=== PATIENT | male | born 1965 | race Caucasian/White ===

== ENCOUNTER → 2017-01-15 | Outpatient (CLI) | payer OTHER ==
[~2017-01-15] MED LIST: ADVI200C5 PO; AMLO5TAB2 PO; ATOR20TA15 PO; CINN500C PO; GLIM2TAB PO; HYDR25TA5 PO; INSU1INJ13 SQ; LISI-515 PO; METF1000 PO; MULT1TAB84 PO
[2017-01-15 09:58] LABS: ANION GAP 9 MEQ/L (5-15); BLOOD UREA NITROGEN 21 MG/DL (7-18); CHLORIDE 103 MEQ/L (98-107); GLOMERULAR FILTRATION RATE 85 ML/MIN (>89); GLUCOSE,FASTING 342 MG/DL (74-99); SODIUM (NA) 138 MEQ/L (136-145)
[2017-01-15 10:01] LABS: POTASSIUM 4.1 MEQ/L (3.5-5.1)
[2017-01-15 14:49] LABS: HEMOGLOBIN A1a 1.3 %; HEMOGLOBIN A1b 2.9 %; HEMOGLOBIN Ao 75.4 %; HEMOGLOBIN LA1C 3.9 %; HEMOGLOBIN P3 5.6 %
== END ==
LOC: CLAB 08:47
DX: E11.65 Type 2 diabetes mellitus with hyperglycemia (principal)
CPT/HCPCS: 36415; 80048; 83036

== ENCOUNTER → 2017-03-12 | Outpatient (CLI) | payer OTHER ==
[2017-03-12 11:00] LABS: ANION GAP 7 MEQ/L (5-15); BICARBONATE 27.6 MEQ/L (21.0-32.0); BLOOD UREA NITROGEN 20 MG/DL (7-18); CHLORIDE 103 MEQ/L (98-107); GLOMERULAR FILTRATION RATE 79 ML/MIN (>89); GLUCOSE,FASTING 349 MG/DL (74-99); POTASSIUM 4.2 MEQ/L (3.5-5.1); SODIUM (NA) 138 MEQ/L (136-145)
[2017-03-12 16:14] LABS: HEMOGLOBIN A1a 1.4 %; HEMOGLOBIN A1b 1.9 %; HEMOGLOBIN Ao 74.2 %; HEMOGLOBIN LA1C 3.9 %; HEMOGLOBIN P3 5.7 %
== END ==
LOC: CLAB 08:28
DX: E11.65 Type 2 diabetes mellitus with hyperglycemia (principal)
CPT/HCPCS: 36415; 80048; 83036

== ENCOUNTER → 2017-03-24 | Outpatient (CLI) | payer OTHER ==
[~2017-03-24] VITALS: Ht 175.3 cm; Wt 91.1 kg
[~2017-03-24] MED LIST changes: +CHLORHEXIDINE GLUCONATE 2 % 1 PACK (2 CLOTHS) TOPICAL PRN; +DEXTROSE 5% IN WATE 1000ML INJ 1,000 ML IV SCH; +INSULIN HUMAN REGULAR 1,000 UNITS/10 ML VIAL SQ PRN; +LACTATED RINGER'S 1000 ML IV PRN; +METOPROLOL TARTRATE 25 MG TAB PO PRN; +POVIDONE IODINE 5% (ANTISEPSIS KIT) 4 APPLICATIONS EACH NARE PRN; +PROPOFOL 200 MG/20 ML AMP IV ONE; +SODIUM CHLORID 0.9% 500 ML IV PRN; +[UNRECOGNIZED DRUG - CODE] PO; +[UNRECOGNIZED DRUG - CODE] PO
[2017-03-24 06:15] VITALS: BP 110/89; PULSE 75; RESP 16; TEMP 97.9; O2SAT 97
[2017-03-24 08:17] VITALS: TEMP 97.7
--- NOTE | 2017-03-24 08:19 | GIPROC ---
[facility] [address] [facility], [address] COLONOSCOPY PROCEDURE REPORT EXAM DATE: 03/24/2017 PATIENT NAME: Bony Chun MR #: [id number] BIRTHDATE: 1965 ENDOSCOPIST: Jaqueline Mahajan MD ORDER #: [id number] CHAIR CANER: Sarbjit Mooney and Nkechi Perez STATUS: outpatient INDICATIONS: The patient is a 51 yr old male here for a colonoscopy due to Screening PROCEDURE PERFORMED: Total Colonoscopy with polypectomy with biopsy forceps MEDICATIONS: See Anesthesia Record ESTIMATED BLOOD LOSS: None CONSENT: The patient understands the risks and benefits of the procedure and understands that these risks include, but are not limited to: sedation, allergic reaction, infection, perforation and/or bleeding. Alternative means of evaluation and treatment include, among others: physical exam, x-rays, and/or surgical intervention. The patient elects to proceed with this endoscopic procedure. DESCRIPTION OF PROCEDURE: checked for proper function. Hand hygiene and appropriate measures for infection prevention was taken. After the risks, benefits and alternatives of the procedure were thoroughly explained, Informed consent was verified, confirmed and timeout was successfully executed by the treatment team. A digital exam was performed. The endoscope was introduced through the anus and advanced to the cecum, which was identified by the appendiceal orifice, tri-radiate valve, and ileocecal valve. The prep quality was The instrument was then slowly withdrawn as the colon was fully examined. There were no mucosal abnormalities noted with the cecum, ascending colon, transverse colon, or descending colon. There was moderate diverticulosis in the sigmoid colon, as well as a 2-3 mm polyp which was removed with the biopsy forceps. There were no abnormalities in the rectum. The scope was then completely withdrawn from the patient and the procedure terminated. ADVERSE EVENTS: There were no complications. WITHDRAWL TIME: 8 minutes DEGREE OF DIFFICULTY: IMPRESSIONS: Normal Colon RECOMMENDATIONS: Colonoscopy in 5 years if polyp adenomatous, 10 years if hyperplastic PATIENT CONDITION: Stable DISPOSITION: Home RECALL: TBD Jaqueline Mahajan MD eSigned: Jaqueline Mahajan MD 03/24/2017 8:19 AM cc: Dr. Landeros PATIENT NAME: Bony Chun MR#: [id number]
[2017-03-24 08:37] VITALS: BP 145/90; PULSE 73; RESP 16; O2SAT 98
--- NOTE | 2017-03-24 08:50 | EKG ---
Date Performed: 03/24/2017 Time Performed: 06:45:28 PTAGE: 51 years EKG: Sinus rhythm WITH OCCASIONAL SUPRAVENTRICULAR PREMATURE COMPLEXES NONSPECIFIC T-WAVE ABNORMALITY ABNORMAL ECG NO PREVIOUS TRACING DOCTOR: Tay Mackenzie Interpretating Date/Time 03/24/2017 08:50:06
== END ==
LOC: HEND 06:06
PROVIDERS: ATTEND Colon & Rectal Surgery
DX: Z12.11 Encounter for screening for malignant neoplasm of colon (principal); R94.31 Abnormal electrocardiogram [ECG] [EKG]; D12.5 Benign neoplasm of sigmoid colon
CPT/HCPCS: 88305; 93005

== ENCOUNTER → 2017-05-14 | Outpatient (CLI) | payer OTHER ==
[~2017-05-14] MED LIST changes: -ATOR20TA15 PO; -CHLORHEXIDINE GLUCONATE 2 % 1 PACK (2 CLOTHS) TOPICAL PRN; -DEXTROSE 5% IN WATE 1000ML INJ 1,000 ML IV SCH; -INSULIN HUMAN REGULAR 1,000 UNITS/10 ML VIAL SQ PRN; -LACTATED RINGER'S 1000 ML IV PRN; -METOPROLOL TARTRATE 25 MG TAB PO PRN; -MULT1TAB84 PO; -POVIDONE IODINE 5% (ANTISEPSIS KIT) 4 APPLICATIONS EACH NARE PRN; -PROPOFOL 200 MG/20 ML AMP IV ONE; -SODIUM CHLORID 0.9% 500 ML IV PRN
[2017-05-14 13:18] LABS: ANION GAP 7 MEQ/L (5-15); AST (GOT) 15 U/L (15-37); BICARBONATE 26.9 MEQ/L (21.0-32.0); BLOOD UREA NITROGEN 33 MG/DL (7-18); CHLORIDE 107 MEQ/L (98-107); GLOMERULAR FILTRATION RATE 103 ML/MIN (>89); GLUCOSE,FASTING 112 MG/DL (74-99); POTASSIUM 3.8 MEQ/L (3.5-5.1); SODIUM (NA) 141 MEQ/L (136-145)
[2017-05-14 13:25] LABS: BLOOD, URINE NEG (NEG); CALCIUM OXALATE CRYSTALS,URINE OCC /hpf; COMMENT (UR) CULT NOT INDICATED; CULTURE IF INDICATED CULT NOT INDICATED; GLUCOSE,URINE 1000 mg/dL (NEG); KETONE, URINE NEG (NEG); NITRITE,URINE NEG (NEG); SQUAMOUS EPITHELIAL CELL URINE <1 /hpf (0-5); URINE COLOR YELLOW (YELLW/STRAW)
[2017-05-14 13:44] LABS: ALKALINE PHOSPHATASE 91 U/L (45-117); ALT (GPT) 28 U/L (12-78); LDL CHOLESTEROL 163 MG/DL (0-99); TOTAL BILIRUBIN ADULT 0.3 MG/DL (0.2-1.0)
[2017-05-14 16:00] LABS: HEMOGLOBIN A1a 0.9 %; HEMOGLOBIN A1b 2.3 %; HEMOGLOBIN LA1C 2.2 %; HEMOGLOBIN P3 4.3 %
== END ==
LOC: OLAB 08:13
PROVIDERS: ATTEND Family Medicine
DX: I10 Essential (primary) hypertension (principal); E78.5 Hyperlipidemia, unspecified; E55.9 Vitamin D deficiency, unspecified; E11.49 Type 2 diabetes mellitus with other diabetic neurological complication; E11.65 Type 2 diabetes mellitus with hyperglycemia
CPT/HCPCS: 80053; 80061; 81001; 82043; 82306; 82607; 82746; 83036; 84153; 84443

== ENCOUNTER 2017-09-20 12:03 | Inpatient (IN) | payer OTHER ==
[2017-09-20] VITALS (15 sets, daily range): BP systolic 118–212; BP diastolic 63–110; PULSE 76–108; RESP 16–18; TEMP 97.8–98.5; O2SAT 95–99
[~2017-09-20] VITALS: Ht 175.3 cm; Wt 92.2 kg
[2017-09-20] MEDS ORDERED: GADODIAMIDE PF 287 MG/ML 20 ML VIAL (for RAD MRI) IVCONTRAST ONE (12:04)
[2017-09-20] MEDS ORDERED: EMPA1TAB3 PO (12:22)
[2017-09-20] MEDS ORDERED: ATOR20TA15 PO (12:22)
[2017-09-20] MEDS ORDERED: MELO15TA20 PO (12:22)
[2017-09-20 13:03] LABS: AUTOMATED NEUTROPHIL # 4.6 TH/MM3 (1.8-7.7); BASOPHIL # 0.1 TH/MM3 (0-0.2); BASOPHIL % 0.7 % (0.0-2.0); EOSINOPHIL # 0.2 TH/MM3 (0-0.4); EOSINOPHIL % 2.4 % (0.0-4.0); HEMATOCRIT 46.5 % (39.0-51.0); HEMOGLOBIN 16.5 GM/DL (13.0-17.0); LYMPHOCYTE # 2.7 TH/MM3 (1.0-4.8); MEAN CELL VOLUME 88.9 FL (80.0-100.0); MEAN CORPUSCULAR HEMOGLOBIN 31.5 PG (27.0-34.0); MEAN CORPUSCULAR HGB CONC 35.4 % (32.0-36.0); MEAN PLATELET VOLUME 8.5 FL (7.0-11.0); MONO % 9.5 % (0.0-8.0); MONOCYTE # 0.8 TH/MM3 (0-0.9); NEUT % 55.4 % (16.0-70.0); PLATELET COUNT 256 TH/MM3 (150-450); RED BLOOD COUNT 5.23 MIL/MM3 (4.50-5.90); RED CELL DISTRIBUTION WIDTH 13.9 % (11.6-17.2); WHITE BLOOD COUNT 8.3 TH/MM3 (4.0-11.0)
--- NOTE | 2017-09-20 13:09 | PD ---
Physical Exam Date Seen by Provider: Sep 20, 2017 Time Seen by Provider: 13:08 Narrative The patient was initially evaluated by the mid-level provider. Please refer to the initial history, physical, diagnostic evaluation, and treatment modality plan. Data Data Last Documented VS Vital Signs Date Time Temp Pulse Resp B/P (MAP) Pulse Ox O2 Delivery O2 Flow Rate FiO2 09/20/17 15:10 78 17 168/94 (118) 99 Room Air 09/20/17 12:11 97.8 Orders Orders Electrocardiogram (09/20/17 12:24) Complete Blood Count With Diff (09/20/17 12:24) Comprehensive Metabolic Panel (09/20/17 12:24) Magnesium (Mg) (09/20/17 12:24) Iv Access Insert/Monitor (09/20/17 12:24) Ecg Monitoring (09/20/17 12:24) Labetalol Inj (Trandate Inj) (09/20/17 13:15) Mri C Spine W/O Contrast (09/20/17 ) Mri L Spine W/O Contrast (09/20/17 ) Mri Brain W&W/O Contrast (09/20/17 12:24) Ct Brain W/O Iv Contrast(Rout) (09/20/17 ) Gadodiamide Pf Inj (Omniscan Pf Inj) (09/20/17 12:04) Nicardipine Inj (Cardene Inj) (09/20/17 16:15) Amlodipine (Norvasc) (09/21/17 09:00) Atorvastatin (Lipitor) (09/21/17 09:00) Lisinopril (Prinivil) (09/20/17 21:00) Insulin Aspart Supplemtl Scale (Novolog (09/20/17 16:15) Consult Neurosurgery (09/20/17 ) Dextrose 50% In Jesus (Vial) Inj (D50w (Vi (09/20/17 16:15) Glucagon Inj (Glucagon Inj) (09/20/17 16:15) Admit Order (Ed Use Only) (09/20/17 16:11) Labs Laboratory Tests Test 09/20/17 12:30 White Blood Count 8.3 TH/MM3 Red Blood Count 5.23 MIL/MM3 Hemoglobin 16.5 GM/DL Hematocrit 46.5 % Mean Corpuscular Volume 88.9 FL Mean Corpuscular Hemoglobin 31.5 PG Mean Corpuscular Hemoglobin Concent 35.4 % Red Cell Distribution Width 13.9 % Platelet Count 256 TH/MM3 Mean Platelet Volume 8.5 FL Neutrophils (%) (Auto) 55.4 % Lymphocytes (%) (Auto) 32.0 % Monocytes (%) (Auto) 9.5 % Eosinophils (%) (Auto) 2.4 % Basophils (%) (Auto) 0.7 % Neutrophils # (Auto) 4.6 TH/MM3 Lymphocytes # (Auto) 2.7 TH/MM3 Monocytes # (Auto) 0.8 TH/MM3 Eosinophils # (Auto) 0.2 TH/MM3 Basophils # (Auto) 0.1 TH/MM3 CBC Comment DIFF FINAL Differential Comment Blood Urea Nitrogen 21 MG/DL Creatinine 0.84 MG/DL Random Glucose 145 MG/DL Total Protein 8.1 GM/DL Albumin 4.2 GM/DL Calcium Level 9.1 MG/DL Magnesium Level 2.2 MG/DL Alkaline Phosphatase 122 U/L Aspartate Amino Transf (AST/SGOT) 20 U/L Alanine Aminotransferase (ALT/SGPT) 31 U/L Total Bilirubin 0.5 MG/DL Sodium Level 140 MEQ/L Potassium Level 3.7 MEQ/L Chloride Level 108 MEQ/L Carbon Dioxide Level 24.3 MEQ/L Anion Gap 8 MEQ/L Estimat Glomerular Filtration Rate 96 ML/MIN [facility] Medical Record Reviewed: Yes Supervised Visit with TAMMIE: Yes Interpretation(s) Laboratory Tests Test 09/20/17 12:30 White Blood Count 8.3 TH/MM3 Red Blood Count 5.23 MIL/MM3 Hemoglobin 16.5 GM/DL Hematocrit 46.5 % Mean Corpuscular Volume 88.9 FL Mean Corpuscular Hemoglobin 31.5 PG Mean Corpuscular Hemoglobin Concent 35.4 % Red Cell Distribution Width 13.9 % Platelet Count 256 TH/MM3 Mean Platelet Volume 8.5 FL Neutrophils (%) (Auto) 55.4 % Lymphocytes (%) (Auto) 32.0 % Monocytes (%) (Auto) 9.5 % Eosinophils (%) (Auto) 2.4 % Basophils (%) (Auto) 0.7 % Neutrophils # (Auto) 4.6 TH/MM3 Lymphocytes # (Auto) 2.7 TH/MM3 Monocytes # (Auto) 0.8 TH/MM3 Eosinophils # (Auto) 0.2 TH/MM3 Basophils # (Auto) 0.1 TH/MM3 CBC Comment DIFF FINAL Differential Comment Blood Urea Nitrogen 21 MG/DL Creatinine 0.84 MG/DL Random Glucose 145 MG/DL Total Protein 8.1 GM/DL Albumin 4.2 GM/DL Calcium Level 9.1 MG/DL Magnesium Level 2.2 MG/DL Alkaline Phosphatase 122 U/L Aspartate Amino Transf (AST/SGOT) 20 U/L Alanine Aminotransferase (ALT/SGPT) 31 U/L Total Bilirubin 0.5 MG/DL Sodium Level 140 MEQ/L Potassium Level 3.7 MEQ/L Chloride Level 108 MEQ/L Carbon Dioxide Level 24.3 MEQ/L Anion Gap 8 MEQ/L Estimat Glomerular Filtration Rate 96 ML/MIN Differential Diagnosis Differential diagnosis includes neuropathy, polyneuropathy, syringomyelia, herniated disc, CVA, hypocalcemia, hypokalemia, somatization, malingering. Narrative Course I, Dr. Lindsay, have reviewed the advance practice practitioner's documentation and am in agreement, met with the patient face to face, made the diagnosis, and the medical decision making was done by me. *My assessment and Findings: The patient is a 51-year-old male was initially evaluated by the mid-level provider. Please refer to the initial history, physical, diagnostic evaluation, treatment modality plan. The patient states he has a history of neuropathy secondary to diabetes, was on Neurontin 300 mg twice a day, however, stopped taking because it was not helping his neuropathy and made him feel sedated. The patient has a long-standing history of numbness and tingling to the feet bilaterally. However, he was walking earlier today and felt like he "stiffened up ". The patient then felt like his lower extremities were heavy and also noted his upper extremities were heavy. Patient feels like his symptoms started more on the right side than the left side, however, states it is affecting both sides. The patient denies any urinary continence. He does complain of weakness of the right lower extremity, states he has difficulty ambulating secondary to his weakness. The patient initially had bilateral symptoms, however, white was greater than left. He did complain of heaviness to the right leg also noted he had difficulty writing with the right arm. Unsure if this is related to acute CVA, hemorrhage, or some type of neuropathy versus syringomyelia are transverse myelitis. Therefore , MRI was ordered of the brain, lumbar spine, and cervical spine. MRI of the brain does reveal possible hyperacute hemorrhage versus subacute infarct. Therefore, CT of the brain was obtained to evaluate for possible hemorrhage. CT is positive for intraparenchymal hemorrhage. I discussed the patient with the on-call neurosurgeon, Dr. Velarde, who recommends admission to the intensive surgical care unit in the on-call hardener helper. I discussed the patient with Dr. Prado who agrees with admission. The patient was placed in a Cardene drip for parameters of 140/90. I did discuss the findings with the patient and family at bedside. Critical Care Narrative Aggregate critical care time was 40 minutes. Time to perform other separately billable procedures was not included in the critical care time. My time did not include minutes spent treating any other patients simultaneously or on activities that did not directly contribute to the patient's treatment. The services I provided to this patient were to treat and/or prevent clinically significant deterioration that could result in: Anoxia, hypoxia, herniation, arrhythmia, . I provided critical care services requiring my management, as noted below: Chart data review, documentation time, medication orders and management, vital sign assessments/reviewing monitor data, ordering and reviewing lab tests, ordering and interpreting/reviewing x-rays and diagnostic studies, care of the patient and discussion of the patient with the admitting physicians. Physician Communication Physician Communication I discussed the patient with the on-call neurosurgeon and on-call hardener helper. The patient will be admitted to the intensive surgical care unit. Diagnosis Primary Impression: Intraparenchymal hemorrhage of brain Additional Impression: Hypertension Qualified Codes: I10 - Essential (primary) hypertension Admitting Information Admitting Physician Requests: Admit Condition: Stable Edilberto Lindsay MD Sep 20, 2017 13:09
[2017-09-20] MEDS ORDERED: LABETALOL HCL 100 MG/20 ML VIAL IV PUSH ONE (13:15)
[2017-09-20 13:16] LABS: ALBUMIN 4.2 GM/DL (3.4-5.0); ALT (GPT) 31 U/L (12-78); AST (GOT) 20 U/L (15-37); BICARBONATE 24.3 MEQ/L (21.0-32.0); BLOOD UREA NITROGEN 21 MG/DL (7-18); CALCIUM 9.1 MG/DL (8.5-10.1); CHLORIDE 108 MEQ/L (98-107); CREATININE 0.84 MG/DL (0.60-1.30); GLOMERULAR FILTRATION RATE 96 ML/MIN (>89); GLUCOSE,RANDOM 145 MG/DL (74-106); MAGNESIUM 2.2 MG/DL (1.5-2.5); SODIUM (NA) 140 MEQ/L (136-145)
--- NOTE | 2017-09-20 13:16 | PD ---
HPI Chief Complaint: Neuro Symptoms/ Deficits Time Seen by Provider: 12:09 Travel History International Travel<30 days: No Contact w/Intl Traveler<30days: No Traveled to known affect area: No History of Present Illness HPI 51 year old male patient presents to the emergency department for evaluation of bilateral feet numbness and tingling. Patient has history of diabetic neuropathy , but stopped taking his Gabapentin because he didn't like the way it make him feel. Patient states he never has sensation of his feet but feels like the numbness and tingling is worsening. Patient feels like his feet are heavy. Patient felt like his was going to slip on the floor when he got out of the shower this morning but caught himself and did not fall. Patient states since that event when he muscles tensed up he has had a difficult time walking. Patient states he feels like the right leg is heavier than the left leg at this time. Patient states he is having a difficult time writing words. Onset of symptoms was this morning. No incontinence of urine or stool. Patient denies any chest pain, shortness breath, fevers, chills, malaise, nausea, vomiting, diarrhea, abdominal pain, headache, lightheadedness. PFSH Past Medical History Asthma: Yes Cancer: No Cardiovascular Problems: No High Cholesterol: Yes Diabetes: Yes Patient Takes Glucophage: Yes Endocrine: Yes (diabetes, non insulin dependent) Genitourinary: No Hepatitis: No Hiatal Hernia: No Hypertension: Yes Immune Disorder: No Musculoskeletal: No Neurologic: Yes (foot neuropathy) Psychiatric: No Reproductive: No Respiratory: No Thyroid Disease: No Influenza Vaccination: No Past Surgical History Abdominal Surgery: Yes (hernia) AICD: No Cardiac Surgery: No Ear Surgery: No Endocrine Surgery: No Eye Surgery: No Genitourinary Surgery: No Gynecologic Surgery: No Joint Replacement: No Oral Surgery: Yes (wisdom teeth as a child) Pacemaker: No Thoracic Surgery: No Tonsillectomy: Yes Social History Alcohol Use: Yes (occas) Tobacco Use: No Substance Use: No Allergies-Medications (Allergen,Severity, Reaction): Coded Allergies: No Known Allergies (Unverified , 08/26/16) Reported Meds & Prescriptions Reported Meds & Active Scripts Active Reported Meloxicam 15 Mg Tab 15 Mg PO DAILY Atorvastatin (Atorvastatin Calcium) 20 Mg Tab 20 Mg PO DAILY Jardiance (Empagliflozin) 25 Mg Tab 25 Mg PO DAILY Ibuprofen 1 Pow Pow 1,000 Mg PO DAILY Amlodipine (Amlodipine Besylate) 5 Mg Tab 5 Mg PO DAILY Metformin (Metformin HCl) 1,000 Mg Tab 1,000 Mg PO BIDPC With meals Lisinopril 20 Mg Tab 20 Mg PO BID Tresiba Flextouch Pen Inj (Insulin Degludec Inj) 600 unit/3 ML Pen 20 Units SQ DAILY Glimepiride 2 Mg Tab 2 Mg PO BIDAC Review of Systems Except as stated in HPI: all other systems reviewed are Neg Physical Exam Narrative GENERAL: Well-nourished, well-developed 51-year-old male patient in no acute distress. SKIN: Bilateral lower extremities has loss of hair, shining to the skin with a bronzing color noted. HEAD: Atraumatic. Normocephalic. EYES: Pupils equal and round. No scleral icterus. No injection or drainage. ENT: No nasal bleeding or discharge. Mucous membranes pink and moist. NECK: Trachea midline. No JVD. CARDIOVASCULAR: Regular rate and rhythm. No murmur appreciated. Pedal pulses + 2 bilaterally. RESPIRATORY: No accessory muscle use. Clear to auscultation. Breath sounds equal bilaterally. GASTROINTESTINAL: Abdomen soft, non-tender, nondistended. Hepatic and splenic margins not palpable. MUSCULOSKELETAL: Full range of motion with dorsi and pedal flexion in bilateral lower extremities. No obvious deformities. No clubbing. No cyanosis. No edema. Muscle strength in the right lower extremities 4 out of 5, muscle strength in the left lower extremity 5 out of 5. NEUROLOGICAL: Awake and alert. No obvious cranial nerve deficits. Motor grossly within normal limits. Normal speech. PSYCHIATRIC: Appropriate mood and affect; insight and judgment normal. Data Data Last Documented VS Vital Signs Date Time Temp Pulse Resp B/P (MAP) Pulse Ox O2 Delivery O2 Flow Rate FiO2 09/20/17 16:00 78 18 192/107 (135) 96 Room Air 09/20/17 12:11 97.8 Orders Orders Electrocardiogram (09/20/17 12:24) Complete Blood Count With Diff (09/20/17 12:24) Comprehensive Metabolic Panel (09/20/17 12:24) Magnesium (Mg) (09/20/17 12:24) Iv Access Insert/Monitor (09/20/17 12:24) Ecg Monitoring (09/20/17 12:24) Labetalol Inj (Trandate Inj) (09/20/17 13:15) Mri C Spine W/O Contrast (09/20/17 ) Mri L Spine W/O Contrast (09/20/17 ) Mri Brain W&W/O Contrast (09/20/17 12:24) Ct Brain W/O Iv Contrast(Rout) (09/20/17 ) Gadodiamide Pf Inj (Omniscan Pf Inj) (09/20/17 12:04) Nicardipine Inj (Cardene Inj) (09/20/17 16:15) Amlodipine (Norvasc) (09/21/17 09:00) Atorvastatin (Lipitor) (09/21/17 09:00) Lisinopril (Prinivil) (09/20/17 21:00) Insulin Aspart Supplemtl Scale (Novolog (09/20/17 16:15) Consult Neurosurgery (09/20/17 ) Dextrose 50% In Jesus (Vial) Inj (D50w (Vi (09/20/17 16:15) Glucagon Inj (Glucagon Inj) (09/20/17 16:15) Admit Order (Ed Use Only) (09/20/17 16:11) Phosphorus (Po4) (09/20/17 12:30) Labs Laboratory Tests Test 09/20/17 12:30 White Blood Count 8.3 TH/MM3 Red Blood Count 5.23 MIL/MM3 Hemoglobin 16.5 GM/DL Hematocrit 46.5 % Mean Corpuscular Volume 88.9 FL Mean Corpuscular Hemoglobin 31.5 PG Mean Corpuscular Hemoglobin Concent 35.4 % Red Cell Distribution Width 13.9 % Platelet Count 256 TH/MM3 Mean Platelet Volume 8.5 FL Neutrophils (%) (Auto) 55.4 % Lymphocytes (%) (Auto) 32.0 % Monocytes (%) (Auto) 9.5 % Eosinophils (%) (Auto) 2.4 % Basophils (%) (Auto) 0.7 % Neutrophils # (Auto) 4.6 TH/MM3 Lymphocytes # (Auto) 2.7 TH/MM3 Monocytes # (Auto) 0.8 TH/MM3 Eosinophils # (Auto) 0.2 TH/MM3 Basophils # (Auto) 0.1 TH/MM3 CBC Comment DIFF FINAL Differential Comment Blood Urea Nitrogen 21 MG/DL Creatinine 0.84 MG/DL Random Glucose 145 MG/DL Total Protein 8.1 GM/DL Albumin 4.2 GM/DL Calcium Level 9.1 MG/DL Phosphorus Level 2.5 MG/DL Magnesium Level 2.2 MG/DL Alkaline Phosphatase 122 U/L Aspartate Amino Transf (AST/SGOT) 20 U/L Alanine Aminotransferase (ALT/SGPT) 31 U/L Total Bilirubin 0.5 MG/DL Sodium Level 140 MEQ/L Potassium Level 3.7 MEQ/L Chloride Level 108 MEQ/L Carbon Dioxide Level 24.3 MEQ/L Anion Gap 8 MEQ/L Estimat Glomerular Filtration Rate 96 ML/MIN MDM Medical Decision Making Medical Screen Exam Complete: Yes Emergency Medical Condition: Yes Interpretation(s) Hypertensive Differential Diagnosis Differential diagnosis include but not limited to nerve impingement, CVA, electrolyte abnormality Narrative Course Patient was placed on monitor and IV obtained. Blood work sent. CBC, CMP, magnesium ordered and pending. Patient case discussed with my attending, Dr. Lindsay and due to the abnormal presentation of the patient MRI was ordered to rule out CVA. MRI of the C-spine and lumbar spine was also ordered to evaluate for nerve impingement or compression. MRI shows 1.8cm signal abnormality in the left thalamus. CT was ordered to evaluate for potential hemorrhagic stroke. CT shows acute hemorrhage within the left posterior thalamus and probable prominent dura posteriorly at the left of the posterior falx which appears slightly dense. Patient was admitted to the metal fabricating supervisor with consult for neurosurgery. Dr. Lindsay with metal fabricating supervisor and neurosurgeon. Please see his documentation for further details. Diagnosis Primary Impression: Intraparenchymal hemorrhage of brain Additional Impression: Hypertension Qualified Codes: I10 - Essential (primary) hypertension Admitting Information Admitting Physician Requests: Admit Condition: Stable Amira Reyes FLACA Sep 20, 2017 13:16
[2017-09-20 13:19] LABS: ALKALINE PHOSPHATASE 122 U/L (45-117); TOTAL BILIRUBIN ADULT 0.5 MG/DL (0.2-1.0); TOTAL PROTEIN 8.1 GM/DL (6.4-8.2)
--- NOTE | 2017-09-20 14:42 | RADRPT ---
EXAM DATE/TIME: 09/20/2017 13:44 [facility] COMPARISON: No previous studies available for comparison. INDICATIONS : Right side weakness. MEDICAL HISTORY : Diabetes mellitus type 2. Hypertension. SURGICAL HISTORY : Tonsillectomy. Inguinal hernia repair. ENCOUNTER: Initial ACUITY: 1 day PAIN SCORE: 0/10 LOCATION: Paraspinal TECHNIQUE: Multiplanar, multisequence MRI examination of the cervical spine was performed. FINDINGS: VERTEBRAE: Normal vertebral body height. Homogeneous marrow signal. ALIGNMENT: No evidence of subluxation. CORD: Normal configuration and signal. POST FOSSA: The cerebellar tonsils are normal in position. C2-C3: The thecal sac has a normal configuration. There is no evidence of disc herniation or spinal canal s tenosis. The neural foramina are patent bilaterally. C3-C4: There is mild central disc protrusion. There continues to be CSF around the cord. The neural foramin a are patent bilaterally. C4-C5: There is a minimal central disc protrusion. Significant stenosis is not seen. There continues to be C SF around the cord. The neural foramina are patent bilaterally. C5-C6: The disc demonstrates decreased height. There is minimal asymmetric posterior osteophyte/disc bulge f ormation being worse on the right. Significant narrowing of the thecal sac is not seen. There is unco vertebral hypertrophy on the right. There is narrowing of the right neural foramina. The left neural foramina is patent. eural foramina are patent bilaterally. C6-C7: The thecal sac has a normal configuration. There is no evidence of disc herniation or spinal canal s tenosis. The neural foramina are patent bilaterally. C7-T1: The thecal sac has a normal configuration. There is no evidence of disc herniation or spinal canal s tenosis. The neural foramina are patent bilaterally. CONCLUSION: 1. Mild asymmetric disc bulge and osteophyte formation being worse on the right at the C5-C6 level. T here is right uncovertebral hypertrophy at this level with narrowing of the right neural foramina. 2. Mild central disc protrusion at the C3-C4 level. 3. Minimal central disc protrusion at the C4-C5 level. Johan Hernandez MD on September 20, 2017 at 14:35 Board Certified Radiologist. This report was verified electronically.
--- NOTE | 2017-09-20 14:50 | RADRPT ---
EXAM DATE/TIME: 09/20/2017 13:44 [facility] COMPARISON: No previous studies available for comparison. INDICATIONS : Right sided weakness. CONTRAST: 18 cc Omniscan (gadodiamide) IV MEDICAL HISTORY : Hypertension. Diabetes mellitus type 2. SURGICAL HISTORY : Tonsillectomy. Inguinal hernia repair. ENCOUNTER: Initial ACUITY: 1 day PAIN SCORE: 0/10 LOCATION: cranial TECHNIQUE: Multiplanar, multisequence MRI of the brain was performed both prior to and following the administrat ion of paramagnetic contrast. FINDINGS: CEREBRUM: There is a 1.7 x 1.6 x 1.8 cm focal areas signal abnormality at the left thalamus. This demonstrates increased signal on the T2-weighted images, low signal on T1-weighted images and low signal on the SW I images. It does demonstrate some increased signal on the diffusion weighted images. The increased s ignal is more prominent on the flair images than the diffusion weighted images. The ventricles are no rmal for age. No evidence of midline shift. No extraaxial fluid collections are seen. The pituitar y gland and suprasellar cistern are normal in configuration. WHITE MATTER: No significant signal abnormalities are seen in the white matter. POSTERIOR FOSSA: The cerebellum and brainstem are intact. The 4th ventricle is midline. The cerebellopontine angle is unremarkable. The cerebellar tonsils are normal in position. DIFFUSION IMAGING: Again noted is the area of abnormal signal at the left thalamus. EXTRACRANIAL: The visualized portions of the orbits and paranasal sinuses are unremarkable. POST-CONTRAST: No abnormal areas of parenchymal or dural enhancement. No evidence of blood-brain barrier breakdown. CONCLUSION: 1.8 cm area of signal abnormality in left thalamus. The signal characteristics suggest a hyperacute f ocal hemorrhage or a subacute area of infarction. Johan Hernandez MD on September 20, 2017 at 14:43 Board Certified Radiologist. This report was verified electronically.
--- NOTE | 2017-09-20 15:15 | RADRPT ---
EXAM DATE/TIME: 09/20/2017 13:44 [facility] COMPARISON: No previous studies available for comparison. INDICATIONS : Right side weakness. MEDICAL HISTORY : Hypertension. Diabetes mellitus type 2. SURGICAL HISTORY : Tonsillectomy. Inguinal hernia repair. ENCOUNTER: Initial ACUITY: 1 day PAIN SCORE: 0/10 LOCATION: Paraspinal TECHNIQUE: Multiplanar multisequence MRI of the lumbar spine was performed without contrast. FINDINGS: The marrow signal appears intact. No significant compression deformities, spondylolisis, or spondylo lesthesis is seen. L1-L2: No appreciable compromise to the thecal sac, or the exiting nerve roots is seen. The neural foramina and lateral recesses are patent bilaterally. L2-L3: No appreciable compromise to the thecal sac, or the exiting nerve roots is seen. The neural foramina and lateral recesses are patent bilaterally. L3-L4: No appreciable compromise to the thecal sac, or the exiting nerve roots is seen. The neural foramina and lateral recesses are patent bilaterally. L4-L5: Mild central disc protrusion is present without any significant compromise to the thecal sac or the exiting nerve roots. There is symmetrical bulging disc with extension into the bilateral neur al foramen impinging the exiting nerve roots to a slight degree.No appreciable thecal sac stenosis is seen. L5-S1: No appreciable compromise to the thecal sac, or the exiting nerve roots is seen. The neural foramina and lateral recesses are patent bilaterally. CONCLUSION: Slightly disc bulge and protrusion L4-5 without any significant thecal sac stenosis. Jose Alejandro Ochoa MD on September 20, 2017 at 15:08 Board Certified Radiologist. This report was verified electronically.
--- NOTE | 2017-09-20 15:52 | RADRPT ---
EXAM DATE/TIME: 09/20/2017 15:41 [place] COMPARISON: MRI BRAIN W & W/O CONTRAST, September 20, 2017, 13:44. INDICATIONS : Bilateral lower extremity weakness, worse on right. Difficulty walking. RADIATION DOSE: 40.06 CTDIvol (mGy) MEDICAL HISTORY : Hypertension. Diabetes mellitus type 2. SURGICAL HISTORY : None. ENCOUNTER: Initial ACUITY: 1 day PAIN SCALE: 0/10 LOCATION: cranial TECHNIQUE: Multiple contiguous axial images were obtained of the head. Using automated exposure control and adj ustment of the mA and/or kV according to patient size, radiation dose was kept as low as reasonably a chievable to obtain optimal diagnostic quality images. DICOM format image data is available electro nically for review and comparison. FINDINGS: Approximate 1.4 cm acute hemorrhage is present in the left posterior thalamus. There is slight i ncreased density involving the posterior falx at the level of the supracerebellar cistern image is th ickening of the falx since no hemorrhage was identified on the patient's MRI. No extra-axial fluid co llections or mass effect is identified. CONCLUSION: Acute hemorrhage within the left posterior thalamus and probable prominent dura posteriorly at the le pauline of the posterior falx which appears slightly dense. Jose Alejandro Ochoa MD on September 20, 2017 at 15:46 Board Certified Radiologist. This report was verified electronically.
[2017-09-20] MEDS ORDERED: RESP: ALBUTEROL 2.5 MG/IPRATROPIUM 0.5 MG NEB (PRN) INH (16:15)
[2017-09-20] MEDS ORDERED: MAGNESIUM SULFATE INJ 4 GM in SODIUM CHLORIDE 0.9% INJ 92 ML IV PRN (16:15)
[2017-09-20] MEDS ORDERED: DEXTROSE 50% IN WATER 50 ML VIAL(D50) IV PUSH PRN (16:15)
[2017-09-20] MEDS ORDERED: LACTULOSE SYRUP 20 GM/30 ML CUP PO PRN (16:15)
[2017-09-20] MEDS ORDERED: BISACODYL 10 MG SUPP RECTAL PRN (16:15)
[2017-09-20] MEDS ORDERED: MAGNESIUM HYDROXIDE SUSP 30 ML CUP PO PRN (16:15)
[2017-09-20] MEDS ORDERED: POTASSIUM PHOSPHATE MONOBASIC 500 MG TAB PO PRN (16:15)
[2017-09-20] MEDS ORDERED: POTASSIUM PHOSPHATE MONOBASIC 500 MG TAB PO/TUBE PRN (16:15)
[2017-09-20] MEDS ORDERED: MAGNESIUM SULFATE INJ 2 GM in SODIUM CHLORIDE 0.9% INJ 96 ML IV PRN (16:15)
[2017-09-20] MEDS ORDERED: niCARdipine INJ 25 MG in SODIUM CHLOR 0.9% 250 ML INJ 240 ML IV ONE (16:15)
[2017-09-20] MEDS ORDERED: SODIUM PHOSPHATE INJ 30 MMOL in SODIUM CHLOR 0.9% 250 ML INJ 240 ML IV PRN (16:15)
[2017-09-20] MEDS ORDERED: MISCELLANEOUS NURSING INFORMATION XX SCH (16:15)
[2017-09-20] MEDS ORDERED: POTASSIUM CHLORIDE 25 MEQ EFFERVESCENT TAB PO PRN (16:15)
[2017-09-20] MEDS ORDERED: MAGNESIUM OXIDE 400 MG TAB PO PRN (16:15)
[2017-09-20] MEDS ORDERED: POTASSIUM CHLOR 40 MEQ PREMIX 100 ML IV PRN ×2 (16:15)
[2017-09-20] MEDS ORDERED: SENNOSIDES 8.6 MG TAB PO PRN (16:15)
[2017-09-20] MEDS: INSULIN ASPART SUPPLEMENTAL SCALE SQ SCH ×3 (16:15→23:55)
[2017-09-20] MEDS ORDERED: POTASSIUM CHLOR 20 MEQ PREMIX 100 ML IV PRN ×2 (16:15)
[2017-09-20] MEDS ORDERED: GLUCAGON 1 MG/ML VIAL OTHER PRN (16:15)
[2017-09-20] MEDS ORDERED: POTASSIUM PHOSPHATE INJ 30 MMOL in SODIUM CHLOR 0.9% 250 ML INJ 250 ML IV PRN (16:15)
[2017-09-20] MEDS ORDERED: CHLORHEXIDINE GLUCONATE 2 % 1 PACK (2 CLOTHS) TOP PRN (16:15)
--- NOTE | 2017-09-20 16:18 | HHI.HP ---
[facility] Service Critical Care Medicine Primary Care Physician Pamela Landeros M.D. Admission Diagnosis intraparenchymal hemorrhage Diagnosis: (1) Acute left thalamic hemorrhage Diagnosis: Principal (2) Hypertensive emergency Diagnosis: Principal (3) Type 2 diabetes mellitus Diagnosis: Secondary (4) Dyslipidemia Diagnosis: Secondary (5) Hypertension Diagnosis: Secondary Chief Complaint: Acute left thalamic hemorrhage Travel History International Travel<30 Days: No Contact w/Intl Traveler <30 Da: No Traveled to Known Affected Are: No History of Present Illness Patient is a 51-year-old male with past medical history significant for type 2 diabetes, hypertension, dyslipidemia, diabetic neuropathy who presented initially to the emergency department for bilateral feet numbness and tingling. He also reported taking a shower patient felt his feet are heavy. He thought he was going to fall, but did not fall. He was weaker on the right side and also had difficulty walking. In the ER initially MRI of the brain and C-spine were done because of bilateral symptoms. MRI was suggestive of a left thalamic hemorrhage which was confirmed on the CT of the brain. Critical care medicine was requested to admit this patient. Neurosurgery Dr. Velarde also had been consulted. I evaluated patient in ED. initial blood pressure on arrival was 210/102. Patient had been started on Cardene infusion at 5 mg per hour, increased to 10 mg per hour as the SBP remained 170-180. Patient has grossly equal strength on both sides but still has mild right facial droop. Neurosurgery consult is pending at this time Review of Systems ROS Limitations: Other (as per [facility]) Past Family Social History Allergies: Coded Allergies: No Known Allergies (Unverified , 08/26/16) Past Medical History Type 2 diabetes Hypertension Dyslipidemia Diabetic neuropathy Past Surgical History Inguinal hernia repair Reported Medications Meloxicam 15 Mg Tab 15 Mg PO DAILY Atorvastatin (Atorvastatin Calcium) 20 Mg Tab 20 Mg PO DAILY Jardiance (Empagliflozin) 25 Mg Tab 25 Mg PO DAILY Ibuprofen 1 Pow Pow 1,000 Mg PO DAILY Amlodipine (Amlodipine Besylate) 5 Mg Tab 5 Mg PO DAILY Metformin (Metformin HCl) 1,000 Mg Tab 1,000 Mg PO BIDPC Lisinopril 20 Mg Tab 20 Mg PO BID Tresiba Flextouch Pen Inj (Insulin Degludec Inj) 600 unit/3 ML Pen 20 Units SQ DAILY Glimepiride 2 Mg Tab 2 Mg PO BIDAC Active Ordered Medications Normal saline gtt. Getting started on Cardene infusion Family History Father had lung cancer and coronary artery disease Mother had pleural malignancy Social History No smoking, occasional alcohol Physical Exam Vital Signs Vital Signs Date Time Temp Pulse Resp B/P (MAP) Pulse Ox O2 Delivery O2 Flow Rate FiO2 09/20/17 15:10 78 17 168/94 (118) 99 Room Air 09/20/17 13:00 79 17 153/87 (109) 99 Room Air 09/20/17 12:29 85 17 194/108 (136) 99 Room Air 09/20/17 12:11 97.8 85 18 212/110 (144) 99 09/20/17 12:08 98.5 82 18 210/102 (138) 99 Room Air Physical Exam GENERAL: Well-nourished, well-developed 51-year-old male patient lying in [facility] SKIN: Bilateral lower extremities has loss of hair with shiny skin, slightly atrophied muscles HEAD: Normocephalic. EYES: Pupils equal and round. No scleral icterus. No injection or drainage. ENT: No nasal bleeding or discharge. Mild right facial droop NECK: Trachea midline. No JVD. CARDIOVASCULAR: Regular rate and rhythm. No murmur appreciated. RESPIRATORY: No accessory muscle use. Clear to auscultation. Breath sounds equal bilaterally. GASTROINTESTINAL: Abdomen soft, non-tender, nondistended. Hepatic and splenic margins not palpable. NEUROLOGICAL: Awake and alert. Oriented 3. Mild right facial droop no other obvious cranial nerve deficits. Motor grossly within normal limits. Normal speech. Laboratory Laboratory Tests Test 09/20/17 12:30 White Blood Count 8.3 Red Blood Count 5.23 Hemoglobin 16.5 Hematocrit 46.5 Mean Corpuscular Volume 88.9 Mean Corpuscular Hemoglobin 31.5 Mean Corpuscular Hemoglobin Concent 35.4 Red Cell Distribution Width 13.9 Platelet Count 256 Mean Platelet Volume 8.5 Neutrophils (%) (Auto) 55.4 Lymphocytes (%) (Auto) 32.0 Monocytes (%) (Auto) 9.5 Eosinophils (%) (Auto) 2.4 Basophils (%) (Auto) 0.7 Neutrophils # (Auto) 4.6 Lymphocytes # (Auto) 2.7 Monocytes # (Auto) 0.8 Eosinophils # (Auto) 0.2 Basophils # (Auto) 0.1 CBC Comment DIFF FINAL Differential Comment Blood Urea Nitrogen 21 Creatinine 0.84 Random Glucose 145 Total Protein 8.1 Albumin 4.2 Calcium Level 9.1 Magnesium Level 2.2 Alkaline Phosphatase 122 Aspartate Amino Transf (AST/SGOT) 20 Alanine Aminotransferase (ALT/SGPT) 31 Total Bilirubin 0.5 Sodium Level 140 Potassium Level 3.7 Chloride Level 108 Carbon Dioxide Level 24.3 Anion Gap 8 Estimat Glomerular Filtration Rate 96 Result Diagram: 09/20/17 1230 09/20/[address] of the brain shows a left thalamic hemorrhage Caprini VTE Risk Assessment Caprini VTE Risk Assessment: Mod/High Risk (score >= 2) VTE Pharm Contraindication: Hemorrhage Caprini Risk Assessment Model Point Value = 1 Point Value = 2 Point Value = 3 Point Value = 5 Age 41-60 Minor surgery BMI > 25 kg/m2 Swollen legs Varicose veins or History of unexplained or recurrent spontaneous Oral contraceptives or hormone replacement Sepsis (< 1 month) Serious lung disease, including pneumonia (< 1 month) Abnormal pulmonary function Acute myocardial infarction Congestive heart failure (< 1 month) History of inflammatory bowel disease Medical patient at bed rest Age 61-74 Arthroscopic surgery Major open surgery (> 45 min) Laparoscopic surgery (> 45 min) Malignancy Confined to bed (> 72 hours) Immobilizing plaster cast Central venous access Age >= 75 History of VTE Family history of VTE Factor V Leiden Prothrombin [id number] Lupus anticoagulant Anticardiolipin antibodies Elevated serum homocysteine Heparin-induced thrombocytopenia Other congenital or acquired thrombophilia Stroke (< 1 month) Elective arthroplasty Hip, pelvis, or leg fracture Acute spinal cord injury (< 1 month) Prophylaxis Regimen Total Risk Factor Score Risk Level Prophylaxis Regimen 0-1 Low Early ambulation 2 Moderate Order ONE of the following: *Sequential Compression Device (SCD) *Heparin 5000 units SQ BID 3-4 Higher Order ONE of the following medications: *Heparin 5000 units SQ TID *Enoxaparin/Lovenox 40 mg SQ daily (WT < 150 kg, CrCl > 30 mL/min) *Enoxaparin/Lovenox 30 mg SQ daily (WT < 150 kg, CrCl > 10-29 mL/min) *Enoxaparin/Lovenox 30 mg SQ BID (WT < 150 kg, CrCl > 30 mL/min) AND/OR *Sequential Compression Device (SCD) 5 or more Highest Order ONE of the following medications: *Heparin 5000 units SQ TID (Preferred with Epidurals) *Enoxaparin/Lovenox 40 mg SQ daily (WT < 150 kg, CrCl > 30 mL/min) *Enoxaparin/Lovenox 30 mg SQ daily (WT < 150 kg, CrCl > 10-29 mL/min) *Enoxaparin/Lovenox 30 mg SQ BID (WT < 150 kg, CrCl > 30 mL/min) AND *Sequential Compression Device (SCD) Assessment and Plan Assessment and Plan NEURO: Acute left thalamic hemorrhage - Patient appeared to have sustained a hypertensive bleed - Neurosurgery consult with Dr. Velarde - Target systolic blood pressure less than 140 diastolic less than 90 - No indication for seizure prophylaxis, keep sodium > 140 RESP: - Nasal cannula oxygen - DuoNeb every 6 hours when necessary CV: Hypertensive emergency History of hypertension - Cardene infusion to keep blood pressure less than 140/90 - Use hydralazine when necessary, continue home lisinopril - Continue statin - Normal saline IV fluids gtt GI: - Heart healthy diet - Speech and swallow eval - Famotidine for GI prophylaxis : - Monitor renal function closely. No indication for Pulido ID: - Monitor closely for infection HEME: - Monitor CBC, CMP, coags ENDO: Type 2 diabetes - Hold all home diabetic drugs - Novolog SSI PROPH: - Bilateral lower extremity SCDs/TRA, famotidine for GI prophylaxis. Chemical DVT prophylaxis contraindicated LINES: - Utilize peripheral IVs, central line if needed CC time 35 min Remains critically ill at this time with hypertensive thalamic bleed. Follow- up CT scan in 24 hours. Neurosurgery consult is pending Code Status Full Discussed Condition With Dr. Lindsay, patient and family Problem Qualifiers (1) Type 2 diabetes mellitus: (2) Hypertension: Qualified Codes: I10 - Essential (primary) hypertension Mimi Prado MD Sep 20, 2017 16:18
[2017-09-20] MEDS ORDERED: MORPHINE SULFATE 2 MG/ML INJ IV PRN (16:30)
[2017-09-20] MEDS ORDERED: hydrALAZINE HCL 20 MG/ML VIAL IV PUSH PRN (16:30)
[2017-09-20] MEDS: SODIUM CHLOR 0.9% 1000 ML INJ 1,000 ML IV SCH (16:33)
[2017-09-20 16:44] LABS: PHOSPHORUS 2.5 MG/DL (2.5-4.9)
[2017-09-20] MEDS: DOCUSATE SODIUM 50 MG/SENNA 8.6 MG TAB PO SCH (19:38)
[2017-09-20] MEDS ORDERED: ACETAMINOPHEN 325 MG TAB PO PRN (20:15)
[2017-09-20] MEDS ORDERED: ACETAMINOPHEN/HYDROcodone 325 MG/5 MG TAB PO PRN (20:15)
[2017-09-20] MEDS: FAMOTIDINE 20 MG/2 ML VIAL IV PUSH SCH (20:37)
[2017-09-20] MEDS: LISINOPRIL 20 MG TAB PO SCH (20:37)
[2017-09-20] MEDS: niCARdipine INJ 25 MG in SODIUM CHLOR 0.9% 250 ML INJ 240 ML IV PRN ×2 (21:01→22:42)
--- NOTE | 2017-09-20 21:52 | PD.CONS ---
[facility] Service Neurosurg Consult Requested By Dr Pulido Reason for Consult [facility] Primary Care Physician Pamela Landeros M.D. History of Present Illness This is a 51-year-old male with history of type 2 diabetes, hypertension, dyslipidemia, diabetic neuropathy who presented initially to the emergency department with new onset feet numbness and tingling. While taking a shower patient felt his feet became very heavy. He thought he was going to fall, but did not fall. He was weaker on the right upper and lower extremity and also had difficulty walking. No seizure acivity. No tongue bitting. no incontinence of stool or urine. In the ER MRI of the brain and C-spine were done because of bilateral symptoms. MRI was suggestive of a left thalamic hemorrhage which was confirmed on the CT of the brain. Critical care medicine was requested to admit this patient. Neurosurgery consultation was requested. Review of Systems Constitutional: DENIES: Diaphoretic episodes, Fatigue, Fever, Weight gain, Weight loss, Chills, Dizziness, Change in appetite, Night Sweats Endocrine: DENIES: Heat/cold intolerance, Polydipsia, Polyuria, Polyphagia Eyes: DENIES: Blurred vision, Diplopia, Eye inflammation, Eye pain, Vision loss , Photosensitivity, Double Vision Ears, nose, mouth, throat: DENIES: Tinnitus, Hearing loss, Vertigo, Nasal discharge, Oral lesions, Throat pain, Hoarseness, Ear Pain, Running Nose, Epistaxis, Sinus Pain, Toothache, Odynophagia Respiratory: DENIES: Apneas, Cough, Snoring, Wheezing, Hemoptysis, Sputum production, Shortness of breath Cardiovascular: DENIES: Chest pain, Palpitations, Syncope, Dyspnea on Exertion , PND, Lower Extremity Edema, Orthopnea, Claudication Gastrointestinal: DENIES: Abdominal pain, Black stools, Bloody stools, Constipation, Diarrhea, Nausea, Vomiting, Difficulty Swallowing, Anorexia Genitourinary: DENIES: Sexual dysfunction, Urinary frequency, Urinary incontinence, Urgency, Hematuria, Dysuria, Nocturia, Penile Discharge, Testicular Pain, Testicular Swelling Musculoskeletal: DENIES: Joint pain, Muscle aches, Stiffness, Joint Swelling, Back pain, Neck pain Integumentary: DENIES: Abnormal pigmentation, Nail changes, Pruritus, Rash Hematologic/lymphatic: DENIES: Bruising, Lymphadenopathy Immunologic/allergic: DENIES: Eczema, Urticaria Neurologic: COMPLAINS OF: Headache, DENIES: Abnormal gait, Localized weakness, Paresthesias, Seizures, Speech Problems, Tremor, Poor Balance Psychiatric: COMPLAINS OF: Anxiety, DENIES: Confusion, Mood changes, Depression , Hallucinations, Agitation, Suicidal Ideation, Homicidal Ideation, Delusions Past Family Social History Allergies: Coded Allergies: No Known Allergies (Unverified , 08/26/16) Past Medical History Type 2 diabetes Hypertension Dyslipidemia Diabetic neuropathy Past Surgical History Inguinal hernia repair Reported Medications Meloxicam 15 Mg Tab 15 Mg PO DAILY Atorvastatin (Atorvastatin Calcium) 20 Mg Tab 20 Mg PO DAILY Jardiance (Empagliflozin) 25 Mg Tab 25 Mg PO DAILY Ibuprofen 1 Pow Pow 1,000 Mg PO DAILY Amlodipine (Amlodipine Besylate) 5 Mg Tab 5 Mg PO DAILY Metformin (Metformin HCl) 1,000 Mg Tab 1,000 Mg PO BIDPC Lisinopril 20 Mg Tab 20 Mg PO BID Tresiba Flextouch Pen Inj (Insulin Degludec Inj) 600 unit/3 ML Pen 20 Units SQ DAILY Glimepiride 2 Mg Tab 2 Mg PO BIDAC Active Ordered Medications Normal saline gtt. Getting started on Cardene infusion Family History Father had lung cancer and coronary artery disease Mother had pleural malignancy Social History No smoking, occasional alcohol Meloxicam 15 Mg Tab 15 Mg PO DAILY Atorvastatin (Atorvastatin Calcium) 20 Mg Tab 20 Mg PO DAILY Jardiance (Empagliflozin) 25 Mg Tab 25 Mg PO DAILY Ibuprofen 1 Pow Pow 1,000 Mg PO DAILY Amlodipine (Amlodipine Besylate) 5 Mg Tab 5 Mg PO DAILY Metformin (Metformin HCl) 1,000 Mg Tab 1,000 Mg PO BIDPC Lisinopril 20 Mg Tab 20 Mg PO BID Tresiba Flextouch Pen Inj (Insulin Degludec Inj) 600 unit/3 ML Pen 20 Units SQ DAILY Glimepiride 2 Mg Tab 2 Mg PO BIDAC Active Ordered Medications Current Medications Labetalol HCl (Trandate Inj) 20 mg ONCE ONCE IV PUSH ; Start 09/20/17 at 13:15; Stop 09/20/17 at 13:15; Status DC Gadodiamide (Omniscan Pf Inj) 18 ml STK-MED ONCE IVCONTRAST Last administered on 09/20/17at 12:04; Start 09/20/17 at 12:04; Stop 09/20/17 at 15:39; Status DC Nicardipine HCl 25 mg/Sodium Chloride 250 ml @ 0 mls/hr TITRATE ONCE IV Last administered on 09/20/17at 16:36; Start 09/20/17 at 16:15; Stop 09/20/17 at 16:16; Status DC Amlodipine Besylate (Norvasc) 5 mg DAILY PO ; Start 09/21/17 at 09:00 Atorvastatin Calcium (Lipitor) 20 mg DAILY PO ; Start 09/21/17 at 09:00 Lisinopril (Prinivil) 20 mg BID PO Last administered on 09/20/17at 20:37; Start 09/20/17 at 21:00 Insulin Aspart (NovoLOG SUPPLEMENTAL SCALE) 1 Q4H SQ Last administered on at 20:15; Start 09/20/17 at 16:15 Dextrose (D50w (Vial) Inj) 50 ml UNSCH PRN IV PUSH HYPOGLYCEMIA - SEE COMMENTS ; Start 09/20/17 at 16:15 Glucagon (Glucagon Inj) 1 mg UNSCH PRN OTHER HYPOGLYCEMIA-SEE COMMENTS; Start 09/20/17 at 16:15 Sodium Chloride 1,000 ml @ 84 mls/hr [id number] IV Last administered on 09/20/17at 16:33; Start 09/20/17 at 16:12 Morphine Sulfate (Morphine Inj) 4 mg Q2H PRN IV PAIN SCALE 6-10; Start 09/20/17 at 16:30 Famotidine (Pepcid Inj) 20 mg Q12HR IV PUSH Last administered on 09/20/17at 20:37 ; Start 09/20/17 at 21:00 Albuterol/ Ipratropium (Duoneb Neb) 1 ampule Q4HR NEB PRN INH WHEEZING; Start 09/20/17 at 16:15 Miscellaneous Information 1 Q361D XX ; Start 09/20/17 at 16:15 Chlorhexidine Gluconate (Chlorhexidine 2% Cloth) 3 pack Taper DAILY@04 TOP ; Start 09/21/17 at 04:00; Stop 09/17/18 at 03:59 Chlorhexidine Gluconate (Chlorhexidine 2% Cloth) 3 pack UNSCH PRN TOP HYGIENIC CARE; Start 09/20/17 at 16:15 Senna/Docusate Sodium (Lauren-Colace) 1 tab BID PO ; Start 09/20/17 at 21:00 Magnesium Hydroxide (Milk Of Magnesia Liq) 30 ml Q12H PRN PO Mild constipation ; Start 09/20/17 at 16:15 Sennosides (Senokot) 17.2 mg Q12H PRN PO Moderate constipation; Start 09/20/17 at 16:15 Bisacodyl (Dulcolax Supp) 10 mg DAILY PRN RECTAL SEVERE CONSITIPATION; Start at 16:15 Lactulose (Lactulose Liq) 30 ml DAILY PRN PO SEVERE CONSITIPATION; Start at 16:15 Potassium Chloride 100 ml @ 50 mls/hr Q2H PRN IV For Potassium 2.8 - 3.2 mEq/L ; Start 09/20/17 at 16:15 Potassium Chloride 100 ml @ 50 mls/hr Q2H PRN IV For Potassium 2.8 - 3.2 mEq/L ; Start 09/20/17 at 16:15 Potassium Bicarb/ Potassium Chloride (K-Lyte Cl Eff) 50 meq UNSCH PRN PO For Potassium 3.3 - 3.5 mEq/L; Start 09/20/17 at 16:15 Potassium Chloride 100 ml @ 25 mls/hr UNSCH PRN IV For Potassium 3.3 - 3.5 mEq /L; Start 09/20/17 at 16:15 Potassium Chloride 100 ml @ 50 mls/hr Q2H PRN IV For Potassium 3.3 - 3.5 mEq/L ; Start 09/20/17 at 16:15 Magnesium Sulfate 4 gm/Sodium Chloride 100 ml @ 50 mls/hr UNSCH PRN IV For Magnesium 0.9 - 1.1 mg/dL; Start 09/20/17 at 16:15 Magnesium Oxide (Mag-Ox) 800 mg UNSCH PRN PO For Magnesium 1.2 - 1.6 mg/dL; Start 09/20/17 at 16:15 Magnesium Sulfate 2 gm/Sodium Chloride 100 ml @ 50 mls/hr UNSCH PRN IV For Magnesium 1.2 - 1.6 mg/dL; Start 09/20/17 at 16:15 Potassium Phosphate (K-Phos) 2,000 mg Q4H PRN PO For Phosphorus < 2.5 mg/dL; Start 09/20/17 at 16:15 Sodium Phosphate 30 mmol/Sodium Chloride 250 ml @ 42 mls/hr UNSCH PRN IV For Phosphorus < 2.5 mg/dL; Start 09/20/17 at 16:15 Potassium Phosphate (K-Phos) 2,000 mg UNSCH PRN PO/TUBE SEE LABEL COMMENTS; Start 09/20/17 at 16:15 Potassium Phosphate 30 mmol/ Sodium Chloride 260 ml @ 42 mls/hr UNSCH PRN IV SEE LABEL COMMENTS; Start 09/20/17 at 16:15 Hydralazine HCl (Apresoline Inj) 20 mg Q4H PRN IV PUSH SYS BP GREATER THAN 150 MMHG; Start 09/20/17 at 16:30 Acetaminophen (Tylenol) 650 mg Q4H PRN PO PAIN 1-2; Start 09/20/17 at 20:15 Acetaminophen/ Hydrocodone Bitart ([place] 5-325 Mg) 1 tab Q4H PRN PO PAIN 3-5; Start 09/20/17 at 20:15 Nicardipine HCl 25 mg/Sodium Chloride 250 ml @ 50 mls/hr TITRATE PRN IV Blood pressure management; Start 09/20/17 at 21:15 Family History Father had lung cancer and coronary artery disease Mother had pleural malignancy Social History No smoking, occasional alcohol Physical Exam Vital Signs Vital Signs Date Time Temp Pulse Resp B/P (MAP) Pulse Ox O2 Delivery O2 Flow Rate FiO2 09/20/17 20:00 98.2 81 16 118/63 (81) 98 09/20/17 20:00 90 09/20/17 20:00 95 Room Air 09/20/17 19:07 98 16 148/89 (108) 09/20/17 19:06 98 148/89 09/20/17 18:00 108 17 156/83 (107) 95 Room Air 09/20/17 17:30 99 17 156/78 (104) 95 Room Air 09/20/17 17:00 90 18 178/97 (124) 97 Room Air 09/20/17 16:45 90 18 195/96 (129) 96 Room Air 09/20/17 16:36 85 192/107 09/20/17 16:30 79 18 184/98 (126) 96 Room Air 1/1/18 16:15 76 18 188/97 (127) 96 Room Air 09/20/17 16:00 78 18 192/107 (135) 96 Room Air 09/20/17 15:10 78 17 168/94 (118) 99 Room Air 09/20/17 13:00 79 17 153/87 (109) 99 Room Air 09/20/17 12:29 85 17 194/108 (136) 99 Room Air 09/20/17 12:11 97.8 85 18 212/110 (144) 99 09/20/17 12:08 98.5 82 18 210/102 (138) 99 Room Air Physical Exam The patient is alert, awake and oriented to time, place and person. Speech is fluent. Higher cognitive functions are normal. Cranial nerve examination demonstrates the pupils to be equal, round, and reactive to light. Extra-ocular movements are intact. Facial motor function shows a nild supranuclear right facial droopl. Gross hearing is intact, bilaterally. The uvula is midline and elevates symmetrically with the soft palate. Sternocleidomastoid and trapezius muscles have normal and symmetrical strength. Other cranial nerves are intact. Neck is soft and supple. Cervical spine has a full range of motion in anterior flexion, extension, lateral bending, and rotation without pain. There is no tenderness to palpation to the spinous processes or paraspinal muscles. Muscle testing reveals normal bulk and tone overall without rigidity, spasticity , fasciculations, or atrophy. Muscle strength is 5/5 in all muscle groups of both upper extremities including deltoid, biceps, triceps, brachioradialis, wrist extension and counter attendant. In the lower extremities, strength is 5/5 in both iliopsoas, quadriceps, hamstrings, plantar flexion, dorsiflexion, and extensor hallicus longus. Sensory examination is intact to light touch and sharp/dull discrimination in both the upper and lower extremities, symmetrically. Deep tendon reflexes are 2+ and symmetrical in the biceps, triceps, and brachioradialis, bilaterally, in the upper extremities. In the lower extremities , the patellar and Achilles are 2+, bilaterally. There is a bilateral plantar flexion response. Hoffmanns sign is negative. There is no clonus or other abnormal reflexes noted. Cerebellar examination is intact to [id number] test, rapid rhythmic alternating motion. There is no dysmetria, dysdiadochokinesia, truncal ataxia, or tremor. Laboratory Laboratory Tests Test 09/20/17 12:30 White Blood Count 8.3 Red Blood Count 5.23 Hemoglobin 16.5 Hematocrit 46.5 Mean Corpuscular Volume 88.9 Mean Corpuscular Hemoglobin 31.5 Mean Corpuscular Hemoglobin Concent 35.4 Red Cell Distribution Width 13.9 Platelet Count 256 Mean Platelet Volume 8.5 Neutrophils (%) (Auto) 55.4 Lymphocytes (%) (Auto) 32.0 Monocytes (%) (Auto) 9.5 Eosinophils (%) (Auto) 2.4 Basophils (%) (Auto) 0.7 Neutrophils # (Auto) 4.6 Lymphocytes # (Auto) 2.7 Monocytes # (Auto) 0.8 Eosinophils # (Auto) 0.2 Basophils # (Auto) 0.1 CBC Comment DIFF FINAL Differential Comment Blood Urea Nitrogen 21 Creatinine 0.84 Random Glucose 145 Total Protein 8.1 Albumin 4.2 Calcium Level 9.1 Phosphorus Level 2.5 Magnesium Level 2.2 Alkaline Phosphatase 122 Aspartate Amino Transf (AST/SGOT) 20 Alanine Aminotransferase (ALT/SGPT) 31 Total Bilirubin 0.5 Sodium Level 140 Potassium Level 3.7 Chloride Level 108 Carbon Dioxide Level 24.3 Anion Gap 8 Estimat Glomerular Filtration Rate 96 Result Diagram: 09/20/17 1230 09/20/17 1230 Imaging Last 48 hours Impressions Brain MRI 09/20/17 1224 Signed Impressions: Service Date/Time: Wednesday, September 20, 2017 13:44 - CONCLUSION: 1.8 cm area of signal abnormality in left thalamus. The signal characteristics suggest a hyperacute focal hemorrhage or a subacute area of infarction. Johan Hernandez MD Lumbar Spine MRI 09/20/17 0000 Signed Impressions: Service Date/Time: Wednesday, September 20, 2017 13:44 - CONCLUSION: Slightly disc bulge and protrusion L4-5 without any significant thecal sac stenosis. Jose Alejandro Ochoa MD Head CT 09/20/17 0000 Signed Impressions: Service Date/Time: Wednesday, September 20, 2017 15:41 - CONCLUSION: Acute hemorrhage within the left posterior thalamus and probable prominent dura posteriorly at the level of the posterior falx which appears slightly dense. Jose Alejandro Ochoa MD Cervical Spine MRI 09/20/17 0000 Signed Impressions: Service Date/Time: Wednesday, September 20, 2017 13:44 - CONCLUSION: 1. Mild asymmetric disc bulge and osteophyte formation being worse on the right at the C5-C6 level. There is right uncovertebral hypertrophy at this level with narrowing of the right neural foramina. 2. Mild central disc protrusion at the C3-C4 level. 3. Minimal central disc protrusion at the C4-C5 level. Johan Hernandez MD Assessment and Plan Assessment and Plan Caprini VTE Risk Assessment Caprini VTE Risk Assessment Caprini VTE Risk Assessment: Mod/High Risk (score >= 2) VTE Pharm Contraindication: Hemorrhage Caprini Risk Assessment Model Point Value = 1 Point Value = 2 Point Value = 3 Point Value = 5 Age 41-60 Minor surgery BMI > 25 kg/m2 Swollen legs Varicose veins or History of unexplained or recurrent spontaneous Oral contraceptives or hormone replacement Sepsis (< 1 month) Serious lung disease, including pneumonia (< 1 month) Abnormal pulmonary function Acute myocardial infarction Congestive heart failure (< 1 month) History of inflammatory bowel disease Medical patient at bed rest Age 61-74 Arthroscopic surgery Major open surgery (> 45 min) Laparoscopic surgery (> 45 min) Malignancy Confined to bed (> 72 hours) Immobilizing plaster cast Central venous access Age >= 75 History of VTE Family history of VTE Factor V Leiden Prothrombin [id number] Lupus anticoagulant Anticardiolipin antibodies Elevated serum homocysteine Heparin-induced thrombocytopenia Other congenital or acquired thrombophilia Stroke (< 1 month) Elective arthroplasty Hip, pelvis, or leg fracture Acute spinal cord injury (< 1 month) Prophylaxis Regimen Total Risk Factor Score Risk Level Prophylaxis Regimen 0-1 Low Early ambulation 2 Moderate Order ONE of the following: *Sequential Compression Device (SCD) *Heparin 5000 units SQ BID 3-4 Higher Order ONE of the following medications: *Heparin 5000 units SQ TID *Enoxaparin/Lovenox 40 mg SQ daily (WT < 150 kg, CrCl > 30 mL/min) *Enoxaparin/Lovenox 30 mg SQ daily (WT < 150 kg, CrCl > 10-29 mL/min) *Enoxaparin/Lovenox 30 mg SQ BID (WT < 150 kg, CrCl > 30 mL/min) AND/OR *Sequential Compression Device (SCD) 5 or more Highest Order ONE of the following medications: *Heparin 5000 units SQ TID (Preferred with Epidurals) *Enoxaparin/Lovenox 40 mg SQ daily (WT < 150 kg, CrCl > 30 mL/min) *Enoxaparin/Lovenox 30 mg SQ daily (WT < 150 kg, CrCl > 10-29 mL/min) *Enoxaparin/Lovenox 30 mg SQ BID (WT < 150 kg, CrCl > 30 mL/min) AND *Sequential Compression Device (SCD) Attending Statement Thalamic hemorrhage. neuro checks in a serial fashion. A surgical procedure is not indicated at this time. Recommend nonoperative treatment. Start Mannitol followed by treatment with hypertonic saline. Follow up CT in AM. Uncontrolled arterial hypertension. start Cardene drip with a goal to maintain the systolic blood pressure less than 160 Electrolytes replacement per ICU protocol Endocrine. Diabetes. Monitor serial Acu checks and SSI as needed in detail PT/OT evaluation Nutrition. NPO Renal. monitor closely urine output, BUN and creatinine ID monitor for signs of infection Protonix for stress ulcer prophylaxis Obed hose and SCD's for DVT prophylaxis, - No pharmacological DVT prophylaxis due to traumatic ICH Further recommendations will be provided depending on the patient's clinical evaluation and follow up studies. Irineo Velarde MD Sep 20, 2017 21:52
[2017-09-21] VITALS (11 sets, daily range): BP systolic 118–156; BP diastolic 64–78; PULSE 74–98; RESP 12–22; TEMP 97.5–98.5; O2SAT 96–98
[2017-09-21] MEDS: niCARdipine INJ 25 MG in SODIUM CHLOR 0.9% 250 ML INJ 240 ML IV PRN (02:58)
[2017-09-21] MEDS: CHLORHEXIDINE GLUCONATE 2 % 1 PACK (2 CLOTHS) TOP SCH (04:00)
[2017-09-21] MEDS: SODIUM CHLOR 0.9% 1000 ML INJ 1,000 ML IV SCH ×3 (04:07→12:59)
[2017-09-21] MEDS: INSULIN ASPART SUPPLEMENTAL SCALE SQ SCH ×6 (04:15→23:46)
[2017-09-21 04:26] LABS: BASOPHIL % 0.5 % (0.0-2.0); EOSINOPHIL # 0.1 TH/MM3 (0-0.4); HEMATOCRIT 45.8 % (39.0-51.0); HEMOGLOBIN 15.5 GM/DL (13.0-17.0); LYMPH % 32.7 % (9.0-44.0); LYMPHOCYTE # 2.4 TH/MM3 (1.0-4.8); MEAN CORPUSCULAR HEMOGLOBIN 30.5 PG (27.0-34.0); MEAN CORPUSCULAR HGB CONC 33.9 % (32.0-36.0); MEAN PLATELET VOLUME 7.9 FL (7.0-11.0); MONO % 8.6 % (0.0-8.0); MONOCYTE # 0.6 TH/MM3 (0-0.9); NEUT % 56.2 % (16.0-70.0); PLATELET COUNT 227 TH/MM3 (150-450); RED BLOOD COUNT 5.09 MIL/MM3 (4.50-5.90); RED CELL DISTRIBUTION WIDTH 13.9 % (11.6-17.2); WHITE BLOOD COUNT 7.2 TH/MM3 (4.0-11.0)
[2017-09-21 04:58] LABS: ALBUMIN 3.4 GM/DL (3.4-5.0); ALKALINE PHOSPHATASE 78 U/L (45-117); ALT (GPT) 28 U/L (12-78); AST (GOT) 17 U/L (15-37); BICARBONATE 26.7 MEQ/L (21.0-32.0); BLOOD UREA NITROGEN 20 MG/DL (7-18); CALCIUM 8.2 MG/DL (8.5-10.1); CHLORIDE 111 MEQ/L (98-107); CREATININE 0.84 MG/DL (0.60-1.30); GLOMERULAR FILTRATION RATE 96 ML/MIN (>89); GLUCOSE,RANDOM 115 MG/DL (74-106); SODIUM (NA) 143 MEQ/L (136-145); TOTAL BILIRUBIN ADULT 0.4 MG/DL (0.2-1.0); TOTAL PROTEIN 6.8 GM/DL (6.4-8.2)
[2017-09-21] MEDS ORDERED: LABETALOL HCL 100 MG/20 ML VIAL IV PUSH PRN (07:45)
--- NOTE | 2017-09-21 07:46 | HHI.CCPN ---
Subjective Remarks/Hospital Course Patient is a 51-year-old male with past medical history significant for type 2 diabetes, hypertension, dyslipidemia, diabetic neuropathy who presented initially to the emergency department for bilateral feet numbness and tingling. He also reported taking a shower patient felt his feet are heavy. He thought he was going to fall, but did not fall. He was weaker on the right side and also had difficulty walking. In the ER initially MRI of the brain and C-spine were done because of bilateral symptoms. MRI was suggestive of a left thalamic hemorrhage which was confirmed on the CT of the brain. Critical care medicine was requested to admit this patient. Neurosurgery Dr. Velarde also had been consulted. I evaluated patient in ED. initial blood pressure on arrival was 210/102. Patient had been started on Cardene infusion at 5 mg per hour, increased to 10 mg per hour as the SBP remained 170-180. Patient has grossly equal strength on both sides but still has mild right facial droop. Neurosurgery consult is pending at this time SUBJ 09/21/17: Patient lying comfortably on bed, blood pressure control is adequate. SBP 120-140. Wean to DC Cardene infusion, increase Norvasc to 10 mg daily. Increase activity repeat CT scan at 2 PM Objective Vital Signs Date Time Temp Pulse Resp B/P (MAP) Pulse Ox O2 Delivery O2 Flow Rate FiO2 09/21/17 06:15 92 145/75 09/21/17 04:00 97.5 16 96 09/20/17 20:00 Room Air Intake and Output 09/21/17 09/21/17 09/22/17 08:00 16:00 00:00 Intake Total 1370 ml Output Total 650 ml Balance 720 ml Result Diagram: 09/21/17 0407 09/21/[address] of the brain shows a left thalamic hemorrhage Objective Remarks GENERAL: Well-nourished, well-developed 51-year-old male patient lying in bed SKIN: Bilateral lower extremities has loss of hair with shiny skin, slightly atrophied muscles HEAD: Normocephalic. EYES: Pupils equal and round. No scleral icterus. No injection or drainage. ENT: No nasal bleeding or discharge. Mild right facial droop NECK: Trachea midline. No JVD. CARDIOVASCULAR: Regular rate and rhythm. No murmur appreciated. RESPIRATORY: No accessory muscle use. Clear to auscultation. Breath sounds equal bilaterally. GASTROINTESTINAL: Abdomen soft, non-tender, nondistended. Hepatic and splenic margins not palpable. NEUROLOGICAL: Awake and alert. Oriented 3. Mild right facial droop no other obvious cranial nerve deficits. Motor grossly within normal limits. Normal speech. A/P Assessment and Plan NEURO: Acute left thalamic hemorrhage - Patient appeared to have sustained a hypertensive bleed - Neurosurgery consult with Dr. Velarde-medical management recommended - Target systolic blood pressure less than 150 diastolic less than 95 - No indication for seizure prophylaxis, keep sodium > 140 RESP: - Nasal cannula oxygen - DuoNeb every 6 hours when necessary CV: Hypertensive emergency History of hypertension - Cardene infusion to keep blood pressure less than 150/95 - Use IV hydralazine, labetalol when necessary, - Continue home lisinopril 20 BID. Continue home Norvasc but increase dose to 10 mg from 5 mg daily - Continue statin - Normal saline IV fluids gtt GI: - Heart healthy, ADA diet - Speech and swallow eval - Famotidine for GI prophylaxis : - Monitor renal function closely. No indication for Pulido ID: - Monitor closely for infection HEME: - Monitor CBC, CMP, coags ENDO: Type 2 diabetes - Hold all home diabetic drugs - Novolog SSI - Start Levemir 5 q12 PROPH: - Bilateral lower extremity SCDs/TRA, famotidine for GI prophylaxis. Chemical DVT prophylaxis contraindicated LINES: - Utilize peripheral IVs, central line if needed Level 3 Follow-up CT scan at 2 pm. Transfer to [facility] if cleared by neurosurgery Mimi Prado MD Sep 21, 2017 07:46
[2017-09-21] MEDS ORDERED: CYCLOBENZAPRINE HCL 10 MG TAB PO PRN (08:00)
[2017-09-21] MEDS: DOCUSATE SODIUM 50 MG/SENNA 8.6 MG TAB PO SCH ×3 (08:34→21:00)
[2017-09-21] MEDS: LISINOPRIL 20 MG TAB PO SCH ×2 (08:34→21:02)
[2017-09-21] MEDS: ATORVASTATIN 20 MG TAB PO SCH (08:34)
[2017-09-21] MEDS: FAMOTIDINE 20 MG/2 ML VIAL IV PUSH SCH ×2 (08:34→21:13)
[2017-09-21] MEDS: INSULIN DETEMIR 100 UNITS/ML VIAL SQ SCH ×2 (08:35→20:40)
[2017-09-21] MEDS ORDERED: amLODIPine BESYLATE 5 MG TAB PO SCH (09:00)
--- NOTE | 2017-09-21 12:39 | HHI.NSPN ---
(Lynette Cuellar) Note Status Status: Progress Note (Lynette Cuellar) Interval History Interval History This is a 51-year-old male with history of type 2 diabetes, hypertension, dyslipidemia, diabetic neuropathy who presented initially to the emergency department with new onset feet numbness and tingling. While taking a shower patient felt his feet became very heavy. He thought he was going to fall, but did not fall. He was weaker on the right upper and lower extremity and also had difficulty walking. No seizure acivity. No tongue bitting. no incontinence of stool or urine. In the ER MRI of the brain and C-spine were done because of bilateral symptoms. MRI was suggestive of a left thalamic hemorrhage which was confirmed on the CT of the brain. Critical care medicine was requested to admit this patient. Neurosurgery consultation was requested. 09/21/17: right side strength better today, blood pressure better controlled of cardizem drip. (Lynette Cuellar) Labs, Micro, & Vital Signs Results Date Time Temp Pulse Resp B/P (MAP) Pulse Ox O2 Delivery O2 Flow Rate FiO2 09/21/17 12:00 90 09/21/17 10:00 86 09/21/17 08:30 98 135/77 09/21/17 08:00 98 09/21/17 08:00 98.0 98 22 156/78 (104) 96 09/21/17 07:00 96 Room Air 09/21/17 06:15 92 145/75 09/21/17 06:00 92 09/21/17 04:30 74 127/69 09/21/17 04:00 80 09/21/17 04:00 97.5 74 16 138/73 (94) 96 09/21/17 02:58 73 128/69 09/21/17 02:00 77 09/21/17 00:00 80 09/21/17 00:00 98.0 80 12 118/64 (82) 96 09/20/17 23:47 78 119/61 09/20/17 23:24 82 116/70 09/20/17 22:42 84 124/63 09/20/17 22:15 80 123/65 09/20/17 22:00 81 09/20/17 21:01 81 144/64 09/20/17 20:00 98.2 81 16 118/63 (81) 98 09/20/17 20:00 90 09/20/17 20:00 95 Room Air 09/20/17 19:07 98 16 148/89 (108) 09/20/17 19:06 98 148/89 09/20/17 18:00 108 17 156/83 (107) 95 Room Air 09/20/17 17:30 99 17 156/78 (104) 95 Room Air 09/20/17 17:00 90 18 178/97 (124) 97 Room Air 09/20/17 16:45 90 18 195/96 (129) 96 Room Air 09/20/17 16:36 85 192/107 09/20/17 16:30 79 18 184/98 (126) 96 Room Air 09/20/17 16:15 76 18 188/97 (127) 96 Room Air 09/20/17 16:00 78 18 192/107 (135) 96 Room Air 09/20/17 15:10 78 17 168/94 (118) 99 Room Air 09/20/17 13:00 79 17 153/87 (109) 99 Room Air 09/22/17 07:00 Intake Total 100 ml Balance 100 ml Constitutional Vital Signs Date Time Temp Pulse Resp B/P (MAP) Pulse Ox O2 Delivery O2 Flow Rate FiO2 09/21/17 12:00 90 09/21/17 10:00 86 09/21/17 08:30 98 135/77 09/21/17 08:00 98 09/21/17 08:00 98.0 98 22 156/78 (104) 96 09/21/17 07:00 96 Room Air 09/21/17 06:15 92 145/75 09/21/17 06:00 92 09/21/17 04:30 74 127/69 09/21/17 04:00 80 09/21/17 04:00 97.5 74 16 138/73 (94) 96 09/21/17 02:58 73 128/69 09/21/17 02:00 77 09/21/17 00:00 80 09/21/17 00:00 98.0 80 12 118/64 (82) 96 09/20/17 23:47 78 119/61 09/20/17 23:24 82 116/70 09/20/17 22:42 84 124/63 09/20/17 22:15 80 123/65 09/20/17 22:00 81 09/20/17 21:01 81 144/64 09/20/17 20:00 98.2 81 16 118/63 (81) 98 09/20/17 20:00 90 09/20/17 20:00 95 Room Air 09/20/17 19:07 98 16 148/89 (108) 09/20/17 19:06 98 148/89 09/20/17 18:00 108 17 156/83 (107) 95 Room Air 09/20/17 17:30 99 17 156/78 (104) 95 Room Air 09/20/17 17:00 90 18 178/97 (124) 97 Room Air 09/20/17 16:45 90 18 195/96 (129) 96 Room Air 09/20/17 16:36 85 192/107 09/20/17 16:30 79 18 184/98 (126) 96 Room Air 09/20/17 16:15 76 18 188/97 (127) 96 Room Air 09/20/17 16:00 78 18 192/107 (135) 96 Room Air 09/20/17 15:10 78 17 168/94 (118) 99 Room Air 09/20/17 13:00 79 17 153/87 (109) 99 Room Air 09/22/17 07:00 Intake Total 100 ml Balance 100 ml (Lynette Cuellar) Review of Systems Constitutional: DENIES: Fever, Chills Eyes: DENIES: Double Vision Cardiovascular: DENIES: Chest pain Gastrointestinal: DENIES: Nausea, Vomiting Genitourinary: DENIES: Urinary incontinence Neurologic: COMPLAINS OF: Localized weakness, Paresthesias (neuropathy), DENIES : Headache, Seizures Psychiatric: DENIES: Confusion (Lynette Cuellar) Physical Exam Mr. Chun is alert, awake and oriented to time, place and person. Speech is fluent. Higher cognitive functions are normal. Cranial nerve examination demonstrates the pupils to be equal, round, and reactive to light. Extra-ocular movements are intact. Facial motor and sensory function are normal and symmetrical. Neck is soft and supple. Muscle strength is 5/5 in all muscle groups of both upper extremities In the lower extremities, strength is 4+ to 5-/5 right lower extremity, 5/5 left lower extremity Sensory examination is intact to light touch in both the upper and lower extremities, symmetrically. Deep tendon reflexes are 2+ in the upper and lower extremities. Bilateral flexors response. Cerebellar examination is intact to [id number] test (Lynette Cuellar) He is alert, awake and oriented to time, place and person. Speech is fluent. Higher cognitive functions are normal. Cranial nerve examination demonstrates the pupils to be equal, round, and reactive to light. Extra-ocular movements are intact. Facial motor function shows a nild supranuclear right facial droopl. Gross hearing is intact, bilaterally. The uvula is midline and elevates symmetrically with the soft palate. Sternocleidomastoid and trapezius muscles have normal and symmetrical strength. Other cranial nerves are intact. Neck is soft and supple. Cervical spine has a full range of motion in anterior flexion, extension, lateral bending, and rotation without pain. There is no tenderness to palpation to the spinous processes or paraspinal muscles. Muscle testing reveals normal bulk and tone overall without rigidity, spasticity , fasciculations, or atrophy. Muscle strength is 5/5 in all muscle groups of both upper extremities including deltoid, biceps, triceps, brachioradialis, wrist extension and double backer. In the lower extremities, strength is 5/5 in both iliopsoas, quadriceps, hamstrings, plantar flexion, dorsiflexion, and extensor hallicus longus. Sensory examination is intact to light touch and sharp/dull discrimination in both the upper and lower extremities, symmetrically. Deep tendon reflexes are 2+ and symmetrical in the biceps, triceps, and brachioradialis, bilaterally, in the upper extremities. In the lower extremities , the patellar and Achilles are 2+, bilaterally. There is a bilateral plantar flexion response. Hoffmanns sign is negative. There is no clonus or other abnormal reflexes noted. Cerebellar examination is intact to [id number] test, rapid rhythmic alternating motion. There is no dysmetria, dysdiadochokinesia, truncal ataxia (Irineo Velarde MD) Medications Current Medications Current Medications Medications (Trade) Dose Ordered Sig/Wilber Route PRN Reason Start Time Stop Time Status Last Admin Dose Admin Atorvastatin Calcium (Lipitor) 20 mg DAILY PO 09/21/17 09:00 09/21/17 08:34 Lisinopril (Prinivil) 20 mg BID PO 09/20/17 21:00 09/21/17 08:34 Insulin Aspart (NovoLOG SUPPLEMENTAL SCALE) 1 Q4H SQ 09/20/17 16:15 09/21/17 08:15 Dextrose (D50w (Vial) Inj) 50 ml UNSCH PRN IV PUSH HYPOGLYCEMIA - SEE COMMENTS 09/20/17 16:15 Glucagon (Glucagon Inj) 1 mg UNSCH PRN OTHER HYPOGLYCEMIA-SEE COMMENTS 09/20/17 16:15 Sodium Chloride 1,000 ml @ 50 mls/hr Q20H IV 09/20/17 16:12 09/21/17 04:07 Morphine Sulfate (Morphine Inj) 4 mg Q2H PRN IV PAIN SCALE 6-10 09/20/17 16:30 Famotidine (Pepcid Inj) 20 mg Q12HR IV PUSH 09/20/17 21:00 09/21/17 08:34 Albuterol/ Ipratropium (Duoneb Neb) 1 ampule Q4HR NEB PRN INH WHEEZING 09/20/17 16:15 Miscellaneous Information 1 Q361D XX 09/20/17 16:15 Chlorhexidine Gluconate (Chlorhexidine 2% Cloth) 3 pack Taper DAILY@04 TOP 09/21/17 04:00 09/17/18 03:59 Chlorhexidine Gluconate (Chlorhexidine 2% Cloth) 3 pack UNSCH PRN TOP HYGIENIC CARE 09/20/17 16:15 Senna/Docusate Sodium (Lauren-Colace) 1 tab BID PO 09/20/17 21:00 Magnesium Hydroxide (Milk Of Magnesia Liq) 30 ml Q12H PRN PO Mild constipation 09/20/17 16:15 Sennosides (Senokot) 17.2 mg Q12H PRN PO Moderate constipation 09/20/17 16:15 Bisacodyl (Dulcolax Supp) 10 mg DAILY PRN RECTAL SEVERE CONSITIPATION 09/20/17 16:15 Lactulose (Lactulose Liq) 30 ml DAILY PRN PO SEVERE CONSITIPATION 09/20/17 16:15 Potassium Chloride 100 ml @ 50 mls/hr Q2H PRN IV For Potassium 2.8 - 3.2 mEq/L 09/20/17 16:15 Potassium Chloride 100 ml @ 50 mls/hr Q2H PRN IV For Potassium 2.8 - 3.2 mEq/L 09/20/17 16:15 Potassium Bicarb/ Potassium Chloride (K-Lyte Cl Eff) 50 meq UNSCH PRN PO For Potassium 3.3 - 3.5 mEq/L 09/20/17 16:15 09/21/17 05:20 Potassium Chloride 100 ml @ 25 mls/hr UNSCH PRN IV For Potassium 3.3 - 3.5 mEq/L 09/20/17 16:15 Potassium Chloride 100 ml @ 50 mls/hr Q2H PRN IV For Potassium 3.3 - 3.5 mEq/L 09/20/17 16:15 Magnesium Sulfate 4 gm/Sodium Chloride 100 ml @ 50 mls/hr UNSCH PRN IV For Magnesium 0.9 - 1.1 mg/dL 09/20/17 16:15 Magnesium Oxide (Mag-Ox) 800 mg UNSCH PRN PO For Magnesium 1.2 - 1.6 mg/dL 09/20/17 16:15 Magnesium Sulfate 2 gm/Sodium Chloride 100 ml @ 50 mls/hr UNSCH PRN IV For Magnesium 1.2 - 1.6 mg/dL 09/20/17 16:15 Potassium Phosphate (K-Phos) 2,000 mg Q4H PRN PO For Phosphorus < 2.5 mg/dL 09/20/17 16:15 Sodium Phosphate 30 mmol/Sodium Chloride 250 ml @ 42 mls/hr UNSCH PRN IV For Phosphorus < 2.5 mg/dL 09/20/17 16:15 Potassium Phosphate (K-Phos) 2,000 mg UNSCH PRN PO/TUBE SEE LABEL COMMENTS 09/20/17 16:15 Potassium Phosphate 30 mmol/ Sodium Chloride 260 ml @ 42 mls/hr UNSCH PRN IV SEE LABEL COMMENTS 09/20/17 16:15 Hydralazine HCl (Apresoline Inj) 20 mg Q4H PRN IV PUSH SYS BP GREATER THAN 150 MMHG 09/20/17 16:30 09/21/17 04:08 Acetaminophen (Tylenol) 650 mg Q4H PRN PO PAIN 1-2 09/20/17 20:15 Acetaminophen/ Hydrocodone Bitart (Hooper 5-325 Mg) 1 tab Q4H PRN PO PAIN 3-5 09/20/17 20:15 Amlodipine Besylate (Norvasc) 10 mg DAILY PO 09/21/17 09:00 09/21/17 08:34 Labetalol HCl (Trandate Inj) 20 mg Q4H PRN IV PUSH SBP >155 09/21/17 07:45 09/21/17 08:34 Insulin Detemir (Levemir Inj) 5 units Q12HR SQ 09/21/17 09:00 09/21/17 08:35 Cyclobenzaprine HCl (Flexeril) 10 mg Q8H PRN PO muscle stiffness 09/21/17 08:00 (Lynette Cuellar) Current Medications Current Medications Labetalol HCl (Trandate Inj) 20 mg ONCE ONCE IV PUSH ; Start 09/20/17 at 13:15; Stop 09/20/17 at 13:15; Status DC Gadodiamide (Omniscan Pf Inj) 18 ml AskablogrK-MED ONCE IVCONTRAST Last administered on 09/20/17at 12:04; Start 09/20/17 at 12:04; Stop 09/20/17 at 15:39; Status DC Nicardipine HCl 25 mg/Sodium Chloride 250 ml @ 0 mls/hr TITRATE ONCE IV Last administered on 09/20/17at 16:36; Start 09/20/17 at 16:15; Stop 09/20/17 at 16:16; Status DC Amlodipine Besylate (Norvasc) 5 mg DAILY PO ; Start 09/21/17 at 09:00; Stop at 09:00; Status DC Atorvastatin Calcium (Lipitor) 20 mg DAILY PO Last administered on 09/21/17at 08: 34; Start 09/21/17 at 09:00 Lisinopril (Prinivil) 20 mg BID PO Last administered on 09/21/17at 08:34; Start 09/20/17 at 21:00 Insulin Aspart (NovoLOG SUPPLEMENTAL SCALE) 1 Q4H SQ Last administered on at 08:15; Start 09/20/17 at 16:15 Dextrose (D50w (Vial) Inj) 50 ml UNSCH PRN IV PUSH HYPOGLYCEMIA - SEE COMMENTS ; Start 09/20/17 at 16:15 Glucagon (Glucagon Inj) 1 mg UNSCH PRN OTHER HYPOGLYCEMIA-SEE COMMENTS; Start 09/20/17 at 16:15 Sodium Chloride 1,000 ml @ 50 mls/hr Q20H IV Last administered on 09/21/17at 04: 07; Start 09/20/17 at 16:12 Morphine Sulfate (Morphine Inj) 4 mg Q2H PRN IV PAIN SCALE 6-10; Start 09/20/17 at 16:30 Famotidine (Pepcid Inj) 20 mg Q12HR IV PUSH Last administered on 09/21/17at 08:34 ; Start 09/20/17 at 21:00 Albuterol/ Ipratropium (Duoneb Neb) 1 ampule Q4HR NEB PRN INH WHEEZING; Start 09/20/17 at 16:15 Miscellaneous Information 1 Q361D XX ; Start 09/20/17 at 16:15 Chlorhexidine Gluconate (Chlorhexidine 2% Cloth) 3 pack Taper DAILY@04 TOP ; Start 09/21/17 at 04:00; Stop 09/17/18 at 03:59 Chlorhexidine Gluconate (Chlorhexidine 2% Cloth) 3 pack UNSCH PRN TOP HYGIENIC CARE; Start 09/20/17 at 16:15 Senna/Docusate Sodium (Lauren-Colace) 1 tab BID PO ; Start 09/20/17 at 21:00 Magnesium Hydroxide (Milk Of Magnesia Liq) 30 ml Q12H PRN PO Mild constipation ; Start 09/20/17 at 16:15 Sennosides (Senokot) 17.2 mg Q12H PRN PO Moderate constipation; Start 09/20/17 at 16:15 Bisacodyl (Dulcolax Supp) 10 mg DAILY PRN RECTAL SEVERE CONSITIPATION; Start at 16:15 Lactulose (Lactulose Liq) 30 ml DAILY PRN PO SEVERE CONSITIPATION; Start at 16:15 Potassium Chloride 100 ml @ 50 mls/hr Q2H PRN IV For Potassium 2.8 - 3.2 mEq/L ; Start 09/20/17 at 16:15 Potassium Chloride 100 ml @ 50 mls/hr Q2H PRN IV For Potassium 2.8 - 3.2 mEq/L ; Start 09/20/17 at 16:15 Potassium Bicarb/ Potassium Chloride (K-Lyte Cl Eff) 50 meq UNSCH PRN PO For Potassium 3.3 - 3.5 mEq/L Last administered on 09/21/17at 05:20; Start 09/20/17 at 16:15 Potassium Chloride 100 ml @ 25 mls/hr UNSCH PRN IV For Potassium 3.3 - 3.5 mEq /L; Start 09/20/17 at 16:15 Potassium Chloride 100 ml @ 50 mls/hr Q2H PRN IV For Potassium 3.3 - 3.5 mEq/L ; Start 09/20/17 at 16:15 Magnesium Sulfate 4 gm/Sodium Chloride 100 ml @ 50 mls/hr UNSCH PRN IV For Magnesium 0.9 - 1.1 mg/dL; Start 09/20/17 at 16:15 Magnesium Oxide (Mag-Ox) 800 mg UNSCH PRN PO For Magnesium 1.2 - 1.6 mg/dL; Start 09/20/17 at 16:15 Magnesium Sulfate 2 gm/Sodium Chloride 100 ml @ 50 mls/hr UNSCH PRN IV For Magnesium 1.2 - 1.6 mg/dL; Start 09/20/17 at 16:15 Potassium Phosphate (K-Phos) 2,000 mg Q4H PRN PO For Phosphorus < 2.5 mg/dL; Start 09/20/17 at 16:15 Sodium Phosphate 30 mmol/Sodium Chloride 250 ml @ 42 mls/hr UNSCH PRN IV For Phosphorus < 2.5 mg/dL; Start 09/20/17 at 16:15 Potassium Phosphate (K-Phos) 2,000 mg UNSCH PRN PO/TUBE SEE LABEL COMMENTS; Start 09/20/17 at 16:15 Potassium Phosphate 30 mmol/ Sodium Chloride 260 ml @ 42 mls/hr UNSCH PRN IV SEE LABEL COMMENTS; Start 09/20/17 at 16:15 Hydralazine HCl (Apresoline Inj) 20 mg Q4H PRN IV PUSH SYS BP GREATER THAN 150 MMHG Last administered on 09/21/17at 04:08; Start 09/20/17 at 16:30 Acetaminophen (Tylenol) 650 mg Q4H PRN PO PAIN 1-2; Start 09/20/17 at 20:15 Acetaminophen/ Hydrocodone Bitart (Hooper 5-325 Mg) 1 tab Q4H PRN PO PAIN 3-5; Start 09/20/17 at 20:15 Nicardipine HCl 25 mg/Sodium Chloride 250 ml @ 50 mls/hr TITRATE PRN IV Blood pressure management Last administered on 09/21/17at 02:58; Start 09/20/17 at 21:15 ; Stop 09/21/17 at 07:39; Status DC Amlodipine Besylate (Norvasc) 10 mg DAILY PO Last administered on 09/21/17at 08: 34; Start 09/21/17 at 09:00 Labetalol HCl (Trandate Inj) 20 mg Q4H PRN IV PUSH SBP >155 Last administered on 09/21/17at 08:34; Start 09/21/17 at 07:45 Insulin Detemir (Levemir Inj) 5 units Q12HR SQ Last administered on 09/21/17at 08 :35; Start 09/21/17 at 09:00 Cyclobenzaprine HCl (Flexeril) 10 mg Q8H PRN PO muscle stiffness; Start at 08:00 (Irineo Velarde MD) Medical Decision Making MDM Remarks 51 year old male with acute left thalamic hemorrhage, right hemiparesis hypertensive crisis (Lynette Cuellar) MDM Remarks Last 48 hours Impressions Brain MRI 09/20/17 1224 Signed Impressions: Service Date/Time: Wednesday, September 20, 2017 13:44 - CONCLUSION: 1.8 cm area of signal abnormality in left thalamus. The signal characteristics suggest a hyperacute focal hemorrhage or a subacute area of infarction. Johan Hernandez MD Lumbar Spine MRI 09/20/17 0000 Signed Impressions: Service Date/Time: Wednesday, September 20, 2017 13:44 - CONCLUSION: Slightly disc bulge and protrusion L4-5 without any significant thecal sac stenosis. Jose Alejandro Ochoa MD Head CT 09/20/17 0000 Signed Impressions: Service Date/Time: Wednesday, September 20, 2017 15:41 - CONCLUSION: Acute hemorrhage within the left posterior thalamus and probable prominent dura posteriorly at the level of the posterior falx which appears slightly dense. Jose Alejandro Ochoa MD Cervical Spine MRI 09/20/17 0000 Signed Impressions: Service Date/Time: Wednesday, September 20, 2017 13:44 - CONCLUSION: 1. Mild asymmetric disc bulge and osteophyte formation being worse on the right at the C5-C6 level. There is right uncovertebral hypertrophy at this level with narrowing of the right neural foramina. 2. Mild central disc protrusion at the C3-C4 level. 3. Minimal central disc protrusion at the C4-C5 level. Johan Hernandez MD (Irineo Velarde MD) Plan Plan Remarks cont neuro checks f/u CT Head today cont blood pressure control nonchemical dvt prophylaxis in view of acute ICH protonix for stress ulcer prophylaix PT, OT ok to transfer to 5N from NRS standpoint (Lynette Cuellar) Plan Remarks Caprini VTE Risk Assessment Caprini VTE Risk Assessment Caprini VTE Risk Assessment: Mod/High Risk (score >= 2) VTE Pharm Contraindication: Hemorrhage Caprini Risk Assessment Model Point Value = 1 Point Value = 2 Point Value = 3 Point Value = 5 Age 41-60 Minor surgery BMI > 25 kg/m2 Swollen legs Varicose veins or History of unexplained or recurrent spontaneous Oral contraceptives or hormone replacement Sepsis (< 1 month) Serious lung disease, including pneumonia (< 1 month) Abnormal pulmonary function Acute myocardial infarction Congestive heart failure (< 1 month) History of inflammatory bowel disease Medical patient at bed rest Age 61-74 Arthroscopic surgery Major open surgery (> 45 min) Laparoscopic surgery (> 45 min) Malignancy Confined to bed (> 72 hours) Immobilizing plaster cast Central venous access Age >= 75 History of VTE Family history of VTE Factor V Leiden Prothrombin [id number] Lupus anticoagulant Anticardiolipin antibodies Elevated serum homocysteine Heparin-induced thrombocytopenia Other congenital or acquired thrombophilia Stroke (< 1 month) Elective arthroplasty Hip, pelvis, or leg fracture Acute spinal cord injury (< 1 month) Prophylaxis Regimen Total Risk Factor Score Risk Level Prophylaxis Regimen 0-1 Low Early ambulation 2 Moderate Order ONE of the following: *Sequential Compression Device (SCD) *Heparin 5000 units SQ BID 3-4 Higher Order ONE of the following medications: *Heparin 5000 units SQ TID *Enoxaparin/Lovenox 40 mg SQ daily (WT < 150 kg, CrCl > 30 mL/min) *Enoxaparin/Lovenox 30 mg SQ daily (WT < 150 kg, CrCl > 10-29 mL/min) *Enoxaparin/Lovenox 30 mg SQ BID (WT < 150 kg, CrCl > 30 mL/min) AND/OR *Sequential Compression Device (SCD) 5 or more Highest Order ONE of the following medications: *Heparin 5000 units SQ TID (Preferred with Epidurals) *Enoxaparin/Lovenox 40 mg SQ daily (WT < 150 kg, CrCl > 30 mL/min) *Enoxaparin/Lovenox 30 mg SQ daily (WT < 150 kg, CrCl > 10-29 mL/min) *Enoxaparin/Lovenox 30 mg SQ BID (WT < 150 kg, CrCl > 30 mL/min) AND *Sequential Compression Device (SCD) (Irineo Velarde MD) Attending Statement Thalamic hemorrhage. Continue neuro checks in a serial fashion. A surgical procedure is not indicated. Continue nonoperative treatment. Start Mannitol followed by treatment with hypertonic saline. Follow up CT in AM. Uncontrolled arterial hypertension. Continue antihypertensives with a goal to maintain the systolic blood pressure less than 160 Electrolytes replacement per ICU protocol Endocrine. Diabetes. Continue to Monitor serial Acu checks and SSI as needed in detail Nutrition. Oral diet Renal. Continue to monitor closely urine output, BUN and creatinine ID continue to monitor for signs of infection Continue Protonix for stress ulcer prophylaxis Continue Obed hose and SCD's for DVT prophylaxis, - No pharmacological DVT prophylaxis due to traumatic ICH The exam, history, and the medical decision-making described in the above note were completed with the assistance of the mid-level provider. I reviewed and agree with the findings presented. I attest that I had a [id number] encounter with the patient on the same day, and personally performed and documented my assessment and findings in the medical record. (Irineo Velarde MD) Lynette Cuellar Sep 21, 2017 12:39 Irineo Velarde MD Sep 21, 2017 12:48
--- NOTE | 2017-09-21 16:42 | RADRPT ---
EXAM DATE/TIME: 09/21/2017 16:18 [facility] COMPARISON: CT BRAIN W/O CONTRAST, September 20, 2017, 15:41. INDICATIONS : F/U intracerebral hemorrhage. RADIATION DOSE: 92.04 CTDIvol (mGy) MEDICAL HISTORY : Hypertension. Diabetes mellitus type 2. SURGICAL HISTORY : hernia repair ENCOUNTER: Subsequent ACUITY: 2 days PAIN SCALE: 0/10 LOCATION: cranial TECHNIQUE: Multiple contiguous axial images were obtained of the head. Using automated exposure control and adj ustment of the mA and/or kV according to patient size, radiation dose was kept as low as reasonably a chievable to obtain optimal diagnostic quality images. DICOM format image data is available electro nically for review and comparison. FINDINGS: There is no appreciable change in approximate 1.4 cm hemorrhage in the left posterior thalamus. The a [place] of prominent increased density in the falx posteriorly is probably prominent dural manner and not changed. There is no evidence for mass effect, mass lesions, edema, or extra-axial fluid collections . The visualized bony structures appear intact. The ventricles are normal size for the patient's ag e. There are no signs of acute infarction for technique. CONCLUSION: Stable left thalamic hemorrhage. Jose Alejandro Ochoa MD on September 21, 2017 at 16:38 Board Certified Radiologist. This report was verified electronically.
--- NOTE | 2017-09-21 17:50 | EKG ---
Date Performed: 09/20/2017 Time Performed: 12:17:19 PTAGE: 51 years EKG: Sinus rhythm NONSPECIFIC T-WAVE ABNORMALITY BORDERLINE ECG INTERPRETATION BASED ON A DEFAULT AGE OF 40 YEARS PREVIOUS TRACING 03/24/17 Compared to prior tracing no significant change DOCTOR: Shant Wynne Interpretating Date/Time 09/21/2017 18:04:56
[2017-09-22] VITALS (11 sets, daily range): BP systolic 132–177; BP diastolic 74–101; PULSE 69–91; RESP 16–20; TEMP 97.4–98.4; O2SAT 95–99
[2017-09-22] MEDS: CHLORHEXIDINE GLUCONATE 2 % 1 PACK (2 CLOTHS) TOP SCH (04:00)
[2017-09-22] MEDS: INSULIN ASPART SUPPLEMENTAL SCALE SQ SCH ×5 (05:02→22:48)
[2017-09-22] MEDS: cloNIDine HCL 0.1 MG TAB PO PRN ×2 (05:03→15:50)
[2017-09-22] MEDS: DOCUSATE SODIUM 50 MG/SENNA 8.6 MG TAB PO SCH ×3 (08:36→21:00)
[2017-09-22] MEDS: ATORVASTATIN 20 MG TAB PO SCH (08:36)
[2017-09-22] MEDS: LISINOPRIL 20 MG TAB PO SCH ×2 (08:36→22:36)
[2017-09-22] MEDS: INSULIN DETEMIR 100 UNITS/ML VIAL SQ SCH ×2 (08:40→22:48)
[2017-09-22] MEDS: FAMOTIDINE 20 MG/2 ML VIAL IV PUSH SCH ×2 (08:41→22:37)
--- NOTE | 2017-09-22 08:45 | MB ---
cc: MICHJOSEF DATE OF CONSULTATION 09/22/2017 HISTORY OF PRESENT ILLNESS This is a 51-year-old right-handed man with hypertension, insulin dependent diabetes, hypercholesterolemia, chronic pain in his feet for which he was taking Neurontin 300 mg at night. This did not seem to help and he had stopped it. He was taking ibuprofen and Mobic every day for aches and pains all over his body, low back and shoulders. Nevertheless on September 20, 2017 he was in the shower, got out of the shower, felt like his right side was a bit weaker, felt weak all over, came in and turned out he had a left thalamic hemorrhage with a very high blood pressure of about 220/105. He was subsequently admitted to the hospital. REVIEW OF SYSTEMS He denies any history of [place], CABG, stent, angioplasty, atrial fibrillation, Coumadin, renal, hepatic or pulmonary disease, thyroid disease, lupus, ulcer, cancer, seizure or stroke. SOCIAL HISTORY Not a smoker or a drinker. Lives with his . FAMILY HISTORY Positive for cancer in both of his parents. Negative for seizure or stroke. MEDICATIONS At home he was on: 1. Glimepiride. 2. Insulin. 3. Lisinopril. 4. Metformin. 5. Amlodipine. 6. Ibuprofen. 7. Jardiance. 8. Atorvastatin. 9. Meloxicam. PHYSICAL EXAMINATION VITAL SIGNS: Afebrile. 78, 21, 171/85 to 132/84 currently. NECK: There were no carotid bruits. HEART: Regular rhythm. I do not detect a murmur. NEUROLOGIC: Pupils are equal. Visual abebe are full. Extraocular movements are intact without nystagmus. Face is symmetric with normal sensation. Tongue is midline. There is a slight right drift. He has normal strength and best testing in upper and lower extremities bilaterally. DTRs are absent throughout. Toes are downgoing on the left, withdraw on the right. Pinprick was diminished in the feet slightly, a little more on the right than the left. He is minimally ataxic on [id number] on the right, not so much on [id number]. His gait is fairly steady with a walker. Speech is fluent. He is not aphasic. No apparent distress. Minimal headache at this time. LABORATORY CBC was normal. BMP was normal. LFTs normal. Albumin normal. IMAGING MRI of the brain shows the hemorrhage. 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 MRI of cervical spine was negative for any cord compression. MRI the LS spine shows slight disc bulge at L4-5. Repeat CT done yesterday showed stable left thalamic hemorrhage, 1.4 cm. IMPRESSION AND RECOMMENDATIONS A long history of aches and pains and painful diabetic neuropathy in addition. Sometimes the sharp pains in his feet are 10/10, usually worse at night. I think overall will try him on some Cymbalta and see if that will help, start him on 30 mg b.i.d. Hopefully it will help with his general aches and pains. With his old small stroke in the right frontal head region he certainly has a lot of risk factors but fairly young. Will check an echocardiogram on him. He has been in sinus rhythm here I note. Will also check an MRA of the neck and [facility] [place]. I will be following with you in the hospital. Hopefully, the Cymbalta will help his foot pain. We could consider some Lyrica in the future depending on how he does. He was taking 300 mg of Neurontin which was not efficacious for him. He was taking it at bedtime, but it also made him feel tired during the day. We should also hold off on his statin, as that can increase the risk of intracranial hemorrhage, for now. I have asked him not to drink alcohol, use aspirin and hold off on NSAIDs. His gait was actually fairly steady. He probably will be able to go home when his blood pressures is under a little better control. He is to get physical therapy from home. MD MICHAEL Avina/LORA /7:47 AM /8:09 AM
[2017-09-22] MEDS ORDERED: DULoxetine HCl DR 30 MG CAP PO ONE (09:00)
[2017-09-22] MEDS ORDERED: GADODIAMIDE PF 287 MG/ML 20 ML VIAL (for RAD MRI) IVCONTRAST ONE (10:04)
[2017-09-22] MEDS: SODIUM CHLOR 0.9% 1000 ML INJ 1,000 ML IV SCH ×2 (10:30→19:35)
--- NOTE | 2017-09-22 10:34 | HHI.PR ---
Subjective Remarks The patient is in the chair. He is awaiting to go forward further imaging. Received by neurology in the morning. Patient denies any deficit. No change in vision. No nausea or vomiting no diarrhea or constipation. Objective Vitals Vital Signs Date Time Temp Pulse Resp B/P (MAP) Pulse Ox O2 Delivery O2 Flow Rate FiO2 09/22/17 07:44 98.0 78 20 171/85 (113) 98 09/22/17 06:34 78 132/84 (100) 09/22/17 04:59 97.8 79 16 177/91 (119) 98 09/22/17 00:08 91 09/22/17 00:00 97.7 91 20 143/83 (103) 95 09/21/17 21:02 97 09/21/17 21:00 95 Room Air 09/21/17 20:00 98.5 87 20 153/78 (103) 96 09/21/17 16:00 87 09/21/17 16:00 98.2 87 20 143/75 (97) 98 09/21/17 14:00 81 09/21/17 12:00 90 09/21/17 12:00 97.5 90 20 124/70 (88) 96 I/O 09/21/17 09/21/17 09/21/17 09/22/17 09/22/17 09/22/17 07:00 15:00 23:00 07:00 15:00 23:00 Intake Total 1370 ml 673 ml Output Total 650 ml Balance 720 ml 673 ml Intake Oral 120 ml IV Total 1250 ml 673 ml Output Urine Total 650 ml # Voids 1 1 # Bowel Movements 0 0 Result Diagram: 09/21/17 0407 09/21/17 0407 Imaging Last Impressions Head CT 09/21/17 1400 Signed Impressions: Service Date/Time: Thursday, September 21, 2017 16:18 - CONCLUSION: Stable left thalamic hemorrhage. Jose Alejandro Ochoa MD Brain MRI 09/20/17 1224 Signed Impressions: Service Date/Time: Wednesday, September 20, 2017 13:44 - CONCLUSION: 1.8 cm area of signal abnormality in left thalamus. The signal characteristics suggest a hyperacute focal hemorrhage or a subacute area of infarction. Johan Hernandez MD Lumbar Spine MRI 09/20/17 0000 Signed Impressions: Service Date/Time: Wednesday, September 20, 2017 13:44 - CONCLUSION: Slightly disc bulge and protrusion L4-5 without any significant thecal sac stenosis. Jose Alejandro Ochoa MD Cervical Spine MRI 09/20/17 0000 Signed Impressions: Service Date/Time: Wednesday, September 20, 2017 13:44 - CONCLUSION: 1. Mild asymmetric disc bulge and osteophyte formation being worse on the right at the C5-C6 level. There is right uncovertebral hypertrophy at this level with narrowing of the right neural foramina. 2. Mild central disc protrusion at the C3-C4 level. 3. Minimal central disc protrusion at the C4-C5 level. Johan Hernandez MD Objective Remarks GENERAL: Well-nourished, well-developed 51-year-old male patient lying in bed SKIN: Bilateral lower extremities has loss of hair with shiny skin, slightly atrophied muscles ENT: No nasal bleeding or discharge. Mild right facial droop CARDIOVASCULAR: Regular rate and rhythm. No murmur appreciated. RESPIRATORY: No accessory muscle use. Clear to auscultation. Breath sounds equal bilaterally. GASTROINTESTINAL: Abdomen soft, non-tender, nondistended. Hepatic and splenic margins not palpable. NEUROLOGICAL: Awake and alert. Oriented 3. Mild right facial droop no other obvious cranial nerve deficits. Motor grossly within normal limits. Normal speech. A/P Problem List: (1) Acute left thalamic hemorrhage (2) Hypertensive emergency ICD Code: I16.1 - Hypertensive emergency (3) Type 2 diabetes mellitus ICD Code: E11.9 - Type 2 diabetes mellitus without complications (4) Dyslipidemia ICD Code: E78.5 - Hyperlipidemia, unspecified (5) Hypertension ICD Code: I10 - Essential (primary) hypertension Status: Acute Assessment and Plan NEURO: Acute left thalamic hemorrhage - Patient appeared to have sustained a hypertensive bleed - Neurosurgery consult with Dr. Velarde-medical management recommended - Target systolic blood pressure less than 150 diastolic less than 95 - No indication for seizure prophylaxis, keep sodium > 140 - CT head reviewed -Plan for MRI/A RESP: - Nasal cannula oxygen - DuoNeb every 6 hours when necessary CV: Hypertensive emergency History of hypertension - Cardene infusion to keep blood pressure less than 150/95 - Use IV hydralazine, labetalol when necessary, - Continue home lisinopril 20 BID. Continue home Norvasc but increase dose to 10 mg from 5 mg daily - Continue statin - Normal saline IV fluids gtt GI: - Heart healthy, ADA diet - Speech and swallow eval - Famotidine for GI prophylaxis : - Monitor renal function closely. No indication for Pulido ID: - Monitor closely for infection HEME: - Monitor CBC, CMP, coags ENDO: Type 2 diabetes - Hold all home diabetic drugs - Novolog SSI - Start Levemir 5 q12 PROPH: - Bilateral lower extremity SCDs/TRA, famotidine for GI prophylaxis. Chemical DVT prophylaxis contraindicated Discussed with the patient, nurse, family- at bedside Problem Qualifiers (1) Type 2 diabetes mellitus: (2) Hypertension: Qualified Codes: I10 - Essential (primary) hypertension Leanna Salazar MD Sep 22, 2017 10:34
--- NOTE | 2017-09-22 10:42 | RADRPT ---
EXAM DATE/TIME: 09/22/2017 09:47 [facility] COMPARISON: No previous studies available for comparison. INDICATIONS : Right sided weakness. MEDICAL HISTORY : Hypertension. Diabetes mellitus type 2. SURGICAL HISTORY : Tonsillectomy. hernia ENCOUNTER: Subsequent ACUITY: 2 day PAIN SCORE: 0/10 LOCATION: cranial Please note a normal MRA of the brain does not entirely exclude the possibility of a small aneurysm, nor the possibility of distal intracranial vessel disease. TECHNIQUE: 3D time of flight MRA was performed. Source images, multiplanar STS MIP, and 3D volume MIP reconstru ctions were reviewed. FINDINGS: Examination of the anterior circulation demonstrates no evidence of aneurysm or vascular information. No intracranial stenosis is identified. The distal cerebral vessels fill normally. There are patent posterior communicating arteries bilaterally. The right vertebral artery terminates in the posterior inferior cerebral artery which can be seen as a normal variation with a dominant lef t vertebral artery. There is a focal area stenosis involving the proximal left vertebral artery. CT a ngiography is recommended for further evaluation if clinically indicated. CONCLUSION: 1. Significant stenosis involving the left vertebral artery measuring 50-60%. Bolus infused CT a ngiography of the brain is recommended for further evaluation. Kvng Santos MD on September 22, 2017 at 10:36 Board Certified Radiologist. This report was verified electronically.
[2017-09-22] MEDS ORDERED: DILTIAZEM HCL 30 MG TAB PO PRN (11:00)
[2017-09-22] MEDS ORDERED: hydrALAZINE HCL 10 MG TAB PO PRN (11:00)
--- NOTE | 2017-09-22 11:51 | RADRPT ---
EXAM DATE/TIME: 09/22/2017 09:47 [facility] COMPARISON: No previous studies available for comparison. INDICATIONS : Right sided weakness. CONTRAST: 20 cc Omniscan (gadodiamide) IV MEDICAL HISTORY : Hypertension. Diabetes mellitus type 2. SURGICAL HISTORY : Tonsillectomy. hernia ENCOUNTER: Subsequent ACUITY: 2 day PAIN SCORE: 0/10 LOCATION: cranial Percent stenosis is calculated using the diameter of the stenotic region over the diameter of the nor mal distal internal carotid artery. TECHNIQUE: Bolus infused MRA of the extracranial circulation was performed using a neurovascular coil. Post pro cessing was performed including rotating subvolume maximum intensity projections of each carotid gagandeep ry, rotating full volume maximum intensity projections of both carotid arteries, sagittal and coronal sliding thin slab reformations of each carotid artery, and left oblique sliding thin slab reformatio n through the aortic arch to include the origin of the arch branch vessels. FINDINGS: Percent stenosis is calculated using the diameter of the stenotic region over the diameter of the nor mal distal internal carotid artery. No abnormality is identified within the lung apices. There is normal origin of vessels from the arch without evidence of proximal stenosis. Vertebral arteries are codominant. Examination of the right common carotid artery demonstrates the vessel to be widely patent. There is 10-20% stenosis with a focal area of ulcerated plaque. More distally the cervical internal carotid ar imtiaz is intact. Examination of the left common carotid artery demonstrates the vessel to be widely patent. There is 1 0-20% stenosis also with a small area of ulceration smaller than on the contralateral side. More dist ally the cervical internal carotid artery is intact. CONCLUSION: 1. There is 10-20% stenosis bilaterally. There are focal areas of ulceration at the origins larger on the right than on the left Kvng Santos MD on September 22, 2017 at 11:42 Board Certified Radiologist. This report was verified electronically.
[2017-09-22 11:54] LABS: RHEUMATOID FACTOR SCREEN NEGATIVE (NEGATIVE)
[2017-09-22 12:20] LABS: CHOLESTEROL/ HDL RATIO 4.91 RATIO; FREE T4 1.26 NG/DL (0.76-1.46); HDL CHOLESTEROL 38.9 MG/DL (40.0-60.0)
--- NOTE | 2017-09-22 13:04 | HHI.NSPN ---
(Lynette Cuellar) Note Status Status: Progress Note (Lynette Cuellar) Interval History Interval History This is a 51-year-old male with history of type 2 diabetes, hypertension, dyslipidemia, diabetic neuropathy who presented initially to the emergency department with new onset feet numbness and tingling. While taking a shower patient felt his feet became very heavy. He thought he was going to fall, but did not fall. He was weaker on the right upper and lower extremity and also had difficulty walking. No seizure acivity. No tongue bitting. no incontinence of stool or urine. In the ER MRI of the brain and C-spine were done because of bilateral symptoms. MRI was suggestive of a left thalamic hemorrhage which was confirmed on the CT of the brain. Critical care medicine was requested to admit this patient. Neurosurgery consultation was requested. 09/21/17: right side strength better today, blood pressure better controlled of cardizem drip. 09/22/17: f/u CT Head stable thalamic bleed, right side strength improving, Neurology work up in progress (Lynette Cuellar) Labs, Micro, & Vital Signs Results Date Time Temp Pulse Resp B/P (MAP) Pulse Ox O2 Delivery O2 Flow Rate FiO2 09/22/17 11:35 98.2 84 20 136/79 (98) 99 09/22/17 07:44 98.0 78 20 171/85 (113) 98 09/22/17 06:34 78 132/84 (100) 09/22/17 04:59 97.8 79 16 177/91 (119) 98 09/22/17 00:08 91 09/22/17 00:00 97.7 91 20 143/83 (103) 95 09/21/17 21:02 97 09/21/17 21:00 95 Room Air 09/21/17 20:00 98.5 87 20 153/78 (103) 96 09/21/17 16:00 87 09/21/17 16:00 98.2 87 20 143/75 (97) 98 09/21/17 14:00 81 Constitutional Vital Signs Date Time Temp Pulse Resp B/P (MAP) Pulse Ox O2 Delivery O2 Flow Rate FiO2 09/22/17 11:35 98.2 84 20 136/79 (98) 99 09/22/17 07:44 98.0 78 20 171/85 (113) 98 09/22/17 06:34 78 132/84 (100) 09/22/17 04:59 97.8 79 16 177/91 (119) 98 09/22/17 00:08 91 09/22/17 00:00 97.7 91 20 143/83 (103) 95 09/21/17 21:02 97 09/21/17 21:00 95 Room Air 09/21/17 20:00 98.5 87 20 153/78 (103) 96 09/21/17 16:00 87 09/21/17 16:00 98.2 87 20 143/75 (97) 98 09/21/17 14:00 81 (Lynette Cuellar) Review of Systems Constitutional: DENIES: Fever Eyes: DENIES: Vision loss Cardiovascular: DENIES: Chest pain Neurologic: COMPLAINS OF: Localized weakness (improving), DENIES: Headache ( Lynette Cuellar) Physical Exam Mr. Chun is alert, awake and oriented to time, place and person. Speech is fluent. Cranial nerve examination demonstrates the pupils to be equal, round, and reactive to light. Extra-ocular movements are intact. Facial motor function shows a mild supranuclear right facial droop. Neck is soft and supple. Muscle strength: mild right hemiparesis, moves left side with normal strength Sensory examination is intact to light touch in both the upper and lower extremities, symmetrically. Deep tendon reflexes are 2+ in the upper and lower extremities. There is a bilateral plantar flexion response. Cerebellar examination is intact to [id number] test (Lynette Cuellar) Mr. Chun is alert, awake and oriented to time, place and person. Speech is fluent. Cranial nerve examination demonstrates the pupils to be equal, round, and reactive to light. Extra-ocular movements are intact. Facial motor function shows a mild supranuclear right facial droop. Neck is soft and supple. Muscle strength: mild right hemiparesis, moves left side with normal strength Sensory examination is intact to light touch in both the upper and lower extremities, symmetrically. Deep tendon reflexes are 2+ in the upper and lower extremities. There is a bilateral plantar flexion response. Cerebellar examination is intact (Irineo Velarde MD) Medications Current Medications Current Medications Medications (Trade) Dose Ordered Sig/Wilber Route PRN Reason Start Time Stop Time Status Last Admin Dose Admin Atorvastatin Calcium (Lipitor) 20 mg DAILY PO 09/21/17 09:00 09/22/17 08:36 Lisinopril (Prinivil) 20 mg BID PO 09/20/17 21:00 09/22/17 08:36 Insulin Aspart (NovoLOG SUPPLEMENTAL SCALE) 1 Q4H SQ 09/20/17 16:15 09/21/17 20:40 Dextrose (D50w (Vial) Inj) 50 ml UNSCH PRN IV PUSH HYPOGLYCEMIA - SEE COMMENTS 09/20/17 16:15 Glucagon (Glucagon Inj) 1 mg UNSCH PRN OTHER HYPOGLYCEMIA-SEE COMMENTS 09/20/17 16:15 Sodium Chloride 1,000 ml @ 50 mls/hr Q20H IV 09/20/17 16:12 09/21/17 12:59 Famotidine (Pepcid Inj) 20 mg Q12HR IV PUSH 09/20/17 21:00 09/22/17 08:41 Albuterol/ Ipratropium (Duoneb Neb) 1 ampule Q4HR NEB PRN INH WHEEZING 09/20/17 16:15 Miscellaneous Information 1 Q361D XX 09/20/17 16:15 Chlorhexidine Gluconate (Chlorhexidine 2% Cloth) 3 pack Taper DAILY@04 TOP 09/21/17 04:00 09/17/18 03:59 Chlorhexidine Gluconate (Chlorhexidine 2% Cloth) 3 pack UNSCH PRN TOP HYGIENIC CARE 09/20/17 16:15 Senna/Docusate Sodium (Lauren-Colace) 1 tab BID PO 09/20/17 21:00 Magnesium Hydroxide (Milk Of Magnesia Liq) 30 ml Q12H PRN PO Mild constipation 09/20/17 16:15 Sennosides (Senokot) 17.2 mg Q12H PRN PO Moderate constipation 09/20/17 16:15 Bisacodyl (Dulcolax Supp) 10 mg DAILY PRN RECTAL SEVERE CONSITIPATION 09/20/17 16:15 Lactulose (Lactulose Liq) 30 ml DAILY PRN PO SEVERE CONSITIPATION 09/20/17 16:15 Hydralazine HCl (Apresoline Inj) 20 mg Q4H PRN IV PUSH SYS BP GREATER THAN 150 MMHG 09/20/17 16:30 09/21/17 04:08 Acetaminophen (Tylenol) 650 mg Q4H PRN PO PAIN 1-2 09/20/17 20:15 Amlodipine Besylate (Norvasc) 10 mg DAILY PO 09/21/17 09:00 09/22/17 08:36 Labetalol HCl (Trandate Inj) 20 mg Q4H PRN IV PUSH SBP >155 09/21/17 07:45 09/21/17 08:34 Insulin Detemir (Levemir Inj) 5 units Q12HR SQ 09/21/17 09:00 09/22/17 08:40 Cyclobenzaprine HCl (Flexeril) 10 mg Q8H PRN PO muscle stiffness 09/21/17 08:00 Clonidine (Catapres) 0.1 mg Q6H PRN PO SBP >150/95 09/21/17 20:45 09/22/17 05:03 Duloxetine HCl (Cymbalta Dr) 30 mg BID PO 09/23/17 09:00 Diltiazem HCl (Cardizem) 30 mg Q6H PRN PO SBP>150, DBP>90, HR>65 09/22/17 11:00 Hydralazine HCl (Apresoline) 10 mg Q6H PRN PO SBP>150, DBP>90 09/22/17 11:00 (Lynette Cuellar) Current Medications Current Medications Labetalol HCl (Trandate Inj) 20 mg ONCE ONCE IV PUSH ; Start 09/20/17 at 13:15; Stop 09/20/17 at 13:15; Status DC Gadodiamide (Omniscan Pf Inj) 18 ml STK-MED ONCE IVCONTRAST Last administered on 09/20/17at 12:04; Start 09/20/17 at 12:04; Stop 09/20/17 at 15:39; Status DC Nicardipine HCl 25 mg/Sodium Chloride 250 ml @ 0 mls/hr TITRATE ONCE IV Last administered on 09/20/17at 16:36; Start 09/20/17 at 16:15; Stop 09/20/17 at 16:16; Status DC Amlodipine Besylate (Norvasc) 5 mg DAILY PO ; Start 09/21/17 at 09:00; Stop at 09:00; Status DC Atorvastatin Calcium (Lipitor) 20 mg DAILY PO Last administered on 09/23/17at 08: 53; Start 09/21/17 at 09:00; Stop 09/23/17 at 16:57; Status DC Lisinopril (Prinivil) 20 mg BID PO Last administered on 09/23/17at 08:53; Start 09/20/17 at 21:00; Stop 09/23/17 at 09:46; Status DC Insulin Aspart (NovoLOG SUPPLEMENTAL SCALE) 1 Q4H SQ Last administered on at 13:21; Start 09/20/17 at 16:15; Stop 09/23/17 at 16:57; Status DC Dextrose (D50w (Vial) Inj) 50 ml UNSCH PRN IV PUSH HYPOGLYCEMIA - SEE COMMENTS ; Start 09/20/17 at 16:15; Stop 09/23/17 at 16:57; Status DC Glucagon (Glucagon Inj) 1 mg UNSCH PRN OTHER HYPOGLYCEMIA-SEE COMMENTS; Start 09/20/17 at 16:15; Stop 09/23/17 at 16:57; Status DC Sodium Chloride 1,000 ml @ 50 mls/hr Q20H IV Last administered on 09/22/17at 10: 30; Start 09/20/17 at 16:12; Stop 09/22/17 at 20:19; Status DC Morphine Sulfate (Morphine Inj) 4 mg Q2H PRN IV PAIN SCALE 6-10; Start 09/20/17 at 16:30; Stop 09/22/17 at 08:05; Status DC Famotidine (Pepcid Inj) 20 mg Q12HR IV PUSH Last administered on 09/23/17at 08:54 ; Start 09/20/17 at 21:00; Stop 09/23/17 at 16:57; Status DC Albuterol/ Ipratropium (Duoneb Neb) 1 ampule Q4HR NEB PRN INH WHEEZING; Start 09/20/17 at 16:15; Stop 09/23/17 at 16:57; Status DC Miscellaneous Information 1 Q361D XX ; Start 09/20/17 at 16:15; Stop 09/23/17 at 16:57; Status DC Chlorhexidine Gluconate (Chlorhexidine 2% Cloth) 3 pack Taper DAILY@04 TOP ; Start 09/21/17 at 04:00; Stop 09/23/17 at 16:57; Status DC Chlorhexidine Gluconate (Chlorhexidine 2% Cloth) 3 pack UNSCH PRN TOP HYGIENIC CARE; Start 09/20/17 at 16:15; Stop 09/23/17 at 16:57; Status DC Senna/Docusate Sodium (Lauren-Colace) 1 tab BID PO ; Start 09/20/17 at 21:00; Stop 09/23/17 at 16:57; Status DC Magnesium Hydroxide (Milk Of Magnesia Liq) 30 ml Q12H PRN PO Mild constipation ; Start 09/20/17 at 16:15; Stop 09/23/17 at 16:57; Status DC Sennosides (Senokot) 17.2 mg Q12H PRN PO Moderate constipation; Start 09/20/17 at 16:15; Stop 09/23/17 at 16:57; Status DC Bisacodyl (Dulcolax Supp) 10 mg DAILY PRN RECTAL SEVERE CONSITIPATION; Start at 16:15; Stop 09/23/17 at 16:57; Status DC Lactulose (Lactulose Liq) 30 ml DAILY PRN PO SEVERE CONSITIPATION; Start at 16:15; Stop 09/23/17 at 16:57; Status DC Potassium Chloride 100 ml @ 50 mls/hr Q2H PRN IV For Potassium 2.8 - 3.2 mEq/L ; Start 09/20/17 at 16:15; Stop 09/22/17 at 09:10; Status DC Potassium Chloride 100 ml @ 50 mls/hr Q2H PRN IV For Potassium 2.8 - 3.2 mEq/L ; Start 09/20/17 at 16:15; Stop 09/22/17 at 09:10; Status DC Potassium Bicarb/ Potassium Chloride (K-Lyte Cl Eff) 50 meq UNSCH PRN PO For Potassium 3.3 - 3.5 mEq/L Last administered on 09/21/17at 05:20; Start 09/20/17 at 16:15; Stop 09/22/17 at 09:10; Status DC Potassium Chloride 100 ml @ 25 mls/hr UNSCH PRN IV For Potassium 3.3 - 3.5 mEq /L; Start 09/20/17 at 16:15; Stop 09/22/17 at 09:10; Status DC Potassium Chloride 100 ml @ 50 mls/hr Q2H PRN IV For Potassium 3.3 - 3.5 mEq/L ; Start 09/20/17 at 16:15; Stop 09/22/17 at 09:10; Status DC Magnesium Sulfate 4 gm/Sodium Chloride 100 ml @ 50 mls/hr UNSCH PRN IV For Magnesium 0.9 - 1.1 mg/dL; Start 09/20/17 at 16:15; Stop 09/22/17 at 09:10; Status DC Magnesium Oxide (Mag-Ox) 800 mg UNSCH PRN PO For Magnesium 1.2 - 1.6 mg/dL; Start 09/20/17 at 16:15; Stop 09/22/17 at 09:10; Status DC Magnesium Sulfate 2 gm/Sodium Chloride 100 ml @ 50 mls/hr UNSCH PRN IV For Magnesium 1.2 - 1.6 mg/dL; Start 09/20/17 at 16:15; Stop 09/22/17 at 09:10; Status DC Potassium Phosphate (K-Phos) 2,000 mg Q4H PRN PO For Phosphorus < 2.5 mg/dL; Start 09/20/17 at 16:15; Stop 09/22/17 at 09:10; Status DC Sodium Phosphate 30 mmol/Sodium Chloride 250 ml @ 42 mls/hr UNSCH PRN IV For Phosphorus < 2.5 mg/dL; Start 09/20/17 at 16:15; Stop 09/22/17 at 09:10; Status DC Potassium Phosphate (K-Phos) 2,000 mg UNSCH PRN PO/TUBE SEE LABEL COMMENTS; Start 09/20/17 at 16:15; Stop 09/22/17 at 09:10; Status DC Potassium Phosphate 30 mmol/ Sodium Chloride 260 ml @ 42 mls/hr UNSCH PRN IV SEE LABEL COMMENTS; Start 09/20/17 at 16:15; Stop 09/22/17 at 09:10; Status DC Hydralazine HCl (Apresoline Inj) 20 mg Q4H PRN IV PUSH SYS BP GREATER THAN 150 MMHG Last administered on 09/21/17at 04:08; Start 09/20/17 at 16:30; Stop 09/23/17 at 16:57; Status DC Acetaminophen (Tylenol) 650 mg Q4H PRN PO PAIN 1-2; Start 09/20/17 at 20:15; Stop 09/23/17 at 16:57; Status DC Acetaminophen/ Hydrocodone Bitart ([place] 5-325 Mg) 1 tab Q4H PRN PO PAIN 3-5; Start 09/20/17 at 20:15; Stop 09/22/17 at 08:05; Status DC Nicardipine HCl 25 mg/Sodium Chloride 250 ml @ 50 mls/hr TITRATE PRN IV Blood pressure management Last administered on 09/21/17at 02:58; Start 09/20/17 at 21:15 ; Stop 09/21/17 at 07:39; Status DC Amlodipine Besylate (Norvasc) 10 mg DAILY PO Last administered on 09/23/17at 08: 53; Start 09/21/17 at 09:00; Stop 09/23/17 at 16:57; Status DC Labetalol HCl (Trandate Inj) 20 mg Q4H PRN IV PUSH SBP >155 Last administered on 09/21/17at 08:34; Start 09/21/17 at 07:45; Stop 09/23/17 at 16:57; Status DC Insulin Detemir (Levemir Inj) 5 units Q12HR SQ Last administered on 09/23/17at 08 :55; Start 09/21/17 at 09:00; Stop 09/23/17 at 16:57; Status DC Cyclobenzaprine HCl (Flexeril) 10 mg Q8H PRN PO muscle stiffness; Start at 08:00; Stop 09/23/17 at 16:57; Status DC Clonidine (Catapres) 0.1 mg Q6H PRN PO SBP >150/95 Last administered on at 15:50; Start 09/21/17 at 20:45; Stop 09/23/17 at 16:57; Status DC Duloxetine HCl (Cymbalta Dr) 30 mg ONCE ONCE PO Last administered on 09/22/17at 10:13; Start 09/22/17 at 09:00; Stop 09/22/17 at 09:01; Status DC Duloxetine HCl (Cymbalta Dr) 30 mg BID PO Last administered on 09/23/17at 08:53; Start 09/23/17 at 09:00; Stop 09/23/17 at 16:57; Status DC Gadodiamide (Omniscan Pf Inj) 20 ml STK-MED ONCE IVCONTRAST Last administered on 09/22/17at 10:04; Start 09/22/17 at 10:04; Stop 09/22/17 at 10:05; Status DC Diltiazem HCl (Cardizem) 30 mg Q6H PRN PO SBP>150, DBP>90, HR>65; Start at 11:00; Stop 09/23/17 at 16:57; Status DC Hydralazine HCl (Apresoline) 10 mg Q6H PRN PO SBP>150, DBP>90; Start 09/22/17 at 11:00; Stop 09/23/17 at 16:57; Status DC Sodium Chloride 1,000 ml @ 75 mls/hr [id number] IV Last administered on 09/22/17at 19:35; Start 09/22/17 at 19:35; Stop 09/23/17 at 09:46; Status DC Iohexol (Omnipaque 350 Inj) 75 ml STK-MED ONCE IVCONTRAST Last administered on 09/22/17at 20:15; Start 09/22/17 at 20:15; Stop 09/22/17 at 20:16; Status DC Lisinopril (Prinivil) 30 mg BID PO ; Start 09/23/17 at 21:00; Stop 09/23/17 at 21: 00; Status DC Potassium Bicarbonate (Effer-K Eff) 50 meq ONCE ONCE PO Last administered on at 10:25; Start 09/23/17 at 09:45; Stop 09/23/17 at 10:12; Status DC Lisinopril (Prinivil) 10 mg ONCE ONCE PO Last administered on 09/23/17at 13:21; Start 09/23/17 at 12:00; Stop 09/23/17 at 12:17; Status DC (Irineo Velarde MD) Medical Decision Making MDM Remarks 51 year old male with acute left thalamic hemorrhage, right hemiparesis, stable f/u CT Head hypertensive crisis (Lynette Cuellar) MDM Remarks Last 48 hours Impressions Neck CTA [id number] Signed Impressions: Service Date/Time: Friday, September 22, 2017 20:03 - CONCLUSION: Atherosclerotic plaquing with areas of soft plaque involving the origin of both internal carotid arteries which also demonstrate ulceration without any significant stenosis. Jose Alejandro Ochoa MD Head CTA [id number] Signed Impressions: Service Date/Time: Friday, September 22, 2017 20:03 - CONCLUSION: Unremarkable study. Jose Alejandro Ochoa MD (Irineo Velarde MD) Plan Plan Remarks cont nonsurgical management cont work up per Neurology medical mgt and blood pressure control nonchemical dvt prophylaxis in view of acute ICH protonix for stress ulcer prophylaix cont PT, OT ok to dc once cleared medically (Lynette Cuellar) Plan Remarks Caprini VTE Risk Assessment Caprini VTE Risk Assessment Caprini VTE Risk Assessment: Mod/High Risk (score >= 2) VTE Pharm Contraindication: Hemorrhage Caprini Risk Assessment Model Point Value = 1 Point Value = 2 Point Value = 3 Point Value = 5 Age 41-60 Minor surgery BMI > 25 kg/m2 Swollen legs Varicose veins or History of unexplained or recurrent spontaneous Oral contraceptives or hormone replacement Sepsis (< 1 month) Serious lung disease, including pneumonia (< 1 month) Abnormal pulmonary function Acute myocardial infarction Congestive heart failure (< 1 month) History of inflammatory bowel disease Medical patient at bed rest Age 61-74 Arthroscopic surgery Major open surgery (> 45 min) Laparoscopic surgery (> 45 min) Malignancy Confined to bed (> 72 hours) Immobilizing plaster cast Central venous access Age >= 75 History of VTE Family history of VTE Factor V Leiden Prothrombin [id number] Lupus anticoagulant Anticardiolipin antibodies Elevated serum homocysteine Heparin-induced thrombocytopenia Other congenital or acquired thrombophilia Stroke (< 1 month) Elective arthroplasty Hip, pelvis, or leg fracture Acute spinal cord injury (< 1 month) Prophylaxis Regimen Total Risk Factor Score Risk Level Prophylaxis Regimen 0-1 Low Early ambulation 2 Moderate Order ONE of the following: *Sequential Compression Device (SCD) *Heparin 5000 units SQ BID 3-4 Higher Order ONE of the following medications: *Heparin 5000 units SQ TID *Enoxaparin/Lovenox 40 mg SQ daily (WT < 150 kg, CrCl > 30 mL/min) *Enoxaparin/Lovenox 30 mg SQ daily (WT < 150 kg, CrCl > 10-29 mL/min) *Enoxaparin/Lovenox 30 mg SQ BID (WT < 150 kg, CrCl > 30 mL/min) AND/OR *Sequential Compression Device (SCD) 5 or more Highest Order ONE of the following medications: *Heparin 5000 units SQ TID (Preferred with Epidurals) *Enoxaparin/Lovenox 40 mg SQ daily (WT < 150 kg, CrCl > 30 mL/min) *Enoxaparin/Lovenox 30 mg SQ daily (WT < 150 kg, CrCl > 10-29 mL/min) *Enoxaparin/Lovenox 30 mg SQ BID (WT < 150 kg, CrCl > 30 mL/min) AND *Sequential Compression Device (SCD) (Irineo Velarde MD) Attending Statement Thalamic hemorrhage. Continue neuro checks. Continue nonoperative treatment. Uncontrolled arterial hypertension. Continue antihypertensives to maintain the systolic blood pressure less than 160 Electrolytes replacement per ICU protocol Endocrine. Diabetes. Continue to Monitor serial Acu checks and SSI as needed in detail Nutrition. Oral diet Renal. Continue to monitor closely urine output, BUN and creatinine ID continue to monitor for signs of infection Continue Protonix for stress ulcer prophylaxis Continue Obed hose and SCD's for DVT prophylaxis, - No pharmacological DVT prophylaxis due to traumatic ICH The exam, history, and the medical decision-making described in the above note were completed with the assistance of the mid-level provider. I reviewed and agree with the findings presented. I attest that I had a [id number] encounter with the patient on the same day, and personally performed and documented my assessment and findings in the medical record. (Irineo Velarde MD) Lynette Cuellar Sep 22, 2017 13:04 Irineo Velarde MD Sep 24, 2017 10:13
[2017-09-22] MEDS ORDERED: IOHEXOL 350 MG/ML 10 ML VIAL (for RAD DIAG) IVCONTRAST ONE (20:15)
--- NOTE | 2017-09-22 20:39 | RADRPT ---
EXAM DATE/TIME: 09/22/2017 20:03 [facility] COMPARISON: CT BRAIN W/O CONTRAST, September 21, 2017, 16:18. INDICATIONS : Right side weakness. IV CONTRAST: 75 cc Omnipaque 350 (iohexol) IV ; Cumulative dose for multiple exams. RADIATION DOSE: 28.03 CTDIvol (mGy) ; Combined studies MEDICAL HISTORY : Hypertension. SURGICAL HISTORY : None. ENCOUNTER: Initial ACUITY: 1 day PAIN SCALE: 0/10 LOCATION: cranial TECHNIQUE: Volumetric scanning was performed using a multi-row detector CT scanner. The data was post processed with a variety of visualization algorithms including full volume maximum intensity projection, multi -planar sliding thin slab reformation, curved planar reformation, and surface rendering techniques. Using automated exposure control and adjustment of the mA and/or kV according to patient size, radiat ion dose was kept as low as reasonably achievable to obtain optimal diagnostic quality images. DICO M format image data is available electronically for review and comparison. FINDINGS: There is excellent visualization of the major intracranial arteries out to the second-order branch ve ssels. There is no evidence for aneurysm, vessel truncation or stenosis, and no evidence for vascula r malformation. Left thalamic hemorrhage is again seen. The right vertebral artery appears hypoplastic. CONCLUSION: Unremarkable study. Jose Alejandro Ochoa MD on September 22, 2017 at 20:34 Board Certified Radiologist. This report was verified electronically.
--- NOTE | 2017-09-22 21:20 | RADRPT ---
EXAM DATE/TIME: 09/22/2017 20:03 [facility] COMPARISON: CT BRAIN W/O CONTRAST, September 21, 2017, 16:18. INDICATIONS : Right side weakness. IV CONTRAST: 75 cc Omnipaque 350 (iohexol) IV ; Cumulative dose for multiple exams. RADIATION DOSE: 28.03 CTDIvol (mGy) ; Combined studies MEDICAL HISTORY : Hypertension. SURGICAL HISTORY : None. ENCOUNTER: Initial ACUITY: 1 day PAIN SCALE: 0/10 LOCATION: Bilateral neck Elevated flow velocities and ICA/CCA ratios have been found to correlate with increased degrees of vessel stenosis, calculated as percentage of diameter relative to a normal segment of distal ICA/CCA. TECHNIQUE: Volumetric scanning was performed using a multirow detector CT scanner. The data was post processed with a variety of visualization algorithms including full-volume maximum intensity projection, multip lanar sliding thin-slab reformation, curved-planar reformation, and surface-rendering techniques. Us ing automated exposure control and adjustment of the mA and/or kV according to patient size, radiatio n dose was kept as low as reasonably achievable to obtain optimal diagnostic quality images. DICOM f ormat image data is available electronically for review and comparison. FINDINGS: The takeoff of the major vessel aortic arch appear intact. There is atherosclerotic plaquing at the origin of the left internal carotid artery partially calcified with areas of ulceration and no si gnificant stenosis. There is also soft plaque at the origin of the right internal carotid artery with large ulceration and no significant stenosis. The left vertebral artery is dominant. CONCLUSION: Atherosclerotic plaquing with areas of soft plaque involving the origin of both internal carotid gagandeep aem which also demonstrate ulceration without any significant stenosis. Jose Alejandro Ochoa MD on September 22, 2017 at 21:15 Board Certified Radiologist. This report was verified electronically.
[2017-09-22 22:46] LABS: ALB/GLOB RATIO (SPE) 1.88 (1.39-2.23)
[2017-09-23] VITALS (9 sets, daily range): BP systolic 135–168; BP diastolic 66–84; PULSE 67–87; RESP 18–19; TEMP 97.2–97.5; O2SAT 96–98
[2017-09-23] MEDS: INSULIN ASPART SUPPLEMENTAL SCALE SQ SCH ×5 (00:15→16:15)
[2017-09-23] MEDS: CHLORHEXIDINE GLUCONATE 2 % 1 PACK (2 CLOTHS) TOP SCH (02:48)
[2017-09-23 05:54] LABS: AUTOMATED NEUTROPHIL # 3.3 TH/MM3 (1.8-7.7); BASOPHIL # 0.1 TH/MM3 (0-0.2); BASOPHIL % 0.8 % (0.0-2.0); EOSINOPHIL # 0.2 TH/MM3 (0-0.4); EOSINOPHIL % 2.7 % (0.0-4.0); HEMATOCRIT 44.4 % (39.0-51.0); HEMOGLOBIN 15.3 GM/DL (13.0-17.0); LYMPH % 38.7 % (9.0-44.0); LYMPHOCYTE # 2.7 TH/MM3 (1.0-4.8); MEAN CELL VOLUME 89.8 FL (80.0-100.0); MEAN CORPUSCULAR HGB CONC 34.5 % (32.0-36.0); MEAN PLATELET VOLUME 8.6 FL (7.0-11.0); MONO % 10.4 % (0.0-8.0); MONOCYTE # 0.7 TH/MM3 (0-0.9); NEUT % 47.4 % (16.0-70.0); PLATELET COUNT 217 TH/MM3 (150-450); RED BLOOD COUNT 4.94 MIL/MM3 (4.50-5.90); RED CELL DISTRIBUTION WIDTH 13.9 % (11.6-17.2); WHITE BLOOD COUNT 6.9 TH/MM3 (4.0-11.0)
[2017-09-23 06:21] LABS: BICARBONATE 25.1 MEQ/L (21.0-32.0); CALCIUM 8.5 MG/DL (8.5-10.1); CREATININE 0.62 MG/DL (0.60-1.30)
--- NOTE | 2017-09-23 07:09 | HHI.PR ---
Subjective Remarks sr Objective Vital Signs Date Time Temp Pulse Resp B/P (MAP) Pulse Ox O2 Delivery O2 Flow Rate FiO2 09/23/17 06:18 75 138/82 (100) 09/23/17 05:25 97.4 87 19 168/79 (108) 98 09/23/17 03:55 67 09/23/17 02:43 97 Room Air 09/23/17 00:56 97.2 71 18 135/66 (89) 96 09/23/17 00:01 67 09/22/17 22:34 97.4 69 16 175/101 (125) 97 09/22/17 21:12 89 09/22/17 19:00 70 09/22/17 18:08 154/74 (100) 09/22/17 15:46 98.4 77 20 176/81 (112) 98 09/22/17 11:35 98.2 84 20 136/79 (98) 99 09/22/17 07:44 98.0 78 20 171/85 (113) 98 I/O 09/22/17 09/22/17 09/22/17 09/23/17 09/23/17 09/23/17 07:00 15:00 23:00 07:00 15:00 23:00 Intake Total 600 ml Balance 600 ml Intake Oral 600 ml # Voids 1 3 # Bowel Movements 0 Result Diagram: 09/23/178 09/23/17 043 Objective Remarks no new co nad vff face symm 5/5 t/o cta shows some outpouching of bilat ica and the left vert appears dz distally and i will review with rads but nothing to do here now and could dc later today if utext me for my rads discussion result cymbalta feels little better inc to 30 bid in two days and fu office Kvng Reynolds MD Sep 23, 2017 07:09
[2017-09-23] MEDS: LISINOPRIL 20 MG TAB PO SCH (08:53)
[2017-09-23] MEDS: ATORVASTATIN 20 MG TAB PO SCH (08:53)
[2017-09-23] MEDS: SODIUM CHLOR 0.9% 1000 ML INJ 1,000 ML IV SCH (08:54)
[2017-09-23] MEDS: FAMOTIDINE 20 MG/2 ML VIAL IV PUSH SCH (08:54)
[2017-09-23] MEDS: INSULIN DETEMIR 100 UNITS/ML VIAL SQ SCH (08:55)
[2017-09-23] MEDS: DOCUSATE SODIUM 50 MG/SENNA 8.6 MG TAB PO SCH (08:55)
[2017-09-23] MEDS ORDERED: DULoxetine HCl DR 30 MG CAP PO SCH (09:00)
[2017-09-23] MEDS ORDERED: POTASSIUM BICARBONATE 25 MEQ EFFERVESCENT TAB PO ONE (09:45)
[2017-09-23] MEDS ORDERED: AMLO10 PO (09:50)
[2017-09-23] MEDS ORDERED: CYCL10TA PO (09:50)
[2017-09-23] MEDS ORDERED: LISI-515 PO (09:50)
[2017-09-23] MEDS ORDERED: DULO1CAP2 PO (09:50)
--- NOTE | 2017-09-23 09:51 | HHI.DS ---
Discharge Summary Admission Date Sep 20, 2017 at 16:13 Discharge Date: Sep 23, 2017 Admitting Diagnosis intraparenchymal hemorrhage (1) Acute left thalamic hemorrhage Diagnosis: Principal (2) Hypertensive emergency ICD Code: I16.1 - Hypertensive emergency Diagnosis: Principal (3) Type 2 diabetes mellitus ICD Code: E11.9 - Type 2 diabetes mellitus without complications Diagnosis: Secondary (4) Dyslipidemia ICD Code: E78.5 - Hyperlipidemia, unspecified Diagnosis: Secondary (5) Hypertension ICD Code: I10 - Essential (primary) hypertension Diagnosis: Secondary Status: Acute Procedures none Brief History - From Admission Patient is a 51-year-old male with past medical history significant for type 2 diabetes, hypertension, dyslipidemia, diabetic neuropathy who presented initially to the emergency department for bilateral feet numbness and tingling. He also reported taking a shower patient felt his feet are heavy. He thought he was going to fall, but did not fall. He was weaker on the right side and also had difficulty walking. In the ER initially MRI of the brain and C-spine were done because of bilateral symptoms. MRI was suggestive of a left thalamic hemorrhage which was confirmed on the CT of the brain. Critical care medicine was requested to admit this patient. Neurosurgery Dr. Velarde also had been consulted. I evaluated patient in ED. initial blood pressure on arrival was 210/102. Patient had been started on Cardene infusion at 5 mg per hour, increased to 10 mg per hour as the SBP remained 170-180. Patient has grossly equal strength on both sides but still has mild right facial droop. Neurosurgery consult is pending at this time CBC/BMP: 09/23/17 0438 09/23/17 0438 Significant Findings Laboratory Tests Test 09/20/17 12:30 09/21/17 04:07 09/22/17 10:05 09/22/17 10:58 Monocytes (%) (Auto) 9.5 % (0.0-8.0) 8.6 % (0.0-8.0) Blood Urea Nitrogen 21 MG/DL (7-18) 20 MG/DL (7-18) Random Glucose 145 MG/DL (74-106) 115 MG/DL (74-106) Alkaline Phosphatase 122 U/L (45-117) Chloride Level 108 MEQ/L (98-107) 111 MEQ/L (98-107) Calcium Level 8.2 MG/DL (8.5-10.1) Potassium Level 3.3 MEQ/L (3.5-5.1) LDL Cholesterol 127 MG/DL (0-99) HDL Cholesterol 38.9 MG/DL (40.0-60.0) Vitamin B12 Level 1226 PG/ML (193-986) Test 09/23/17 04:38 Monocytes (%) (Auto) 10.4 % (0.0-8.0) Blood Urea Nitrogen 19 MG/DL (7-18) Random Glucose 112 MG/DL (74-106) Potassium Level 3.3 MEQ/L (3.5-5.1) Imaging Last Impressions Neck CTA 09/22/171934 Signed Impressions: Service Date/Time: Friday, September 22, 2017 20:03 - CONCLUSION: Atherosclerotic plaquing with areas of soft plaque involving the origin of both internal carotid arteries which also demonstrate ulceration without any significant stenosis. Jose Alejandro Ochoa MD Head CTA 09/22/171934 Signed Impressions: Service Date/Time: Friday, September 22, 2017 20:03 - CONCLUSION: Unremarkable study. Jose Alejandro Ochoa MD Neck Magnetic Resonance Angiography 09/22/17804 Signed Impressions: Service Date/Time: Friday, September 22, 2017 09:47 - CONCLUSION: 1. There is 10-20%% stenosis bilaterally. There are focal areas of ulceration at the origins larger on the right than on the left Kvng Santos MD Head Magnetic Resonance Angiography 09/22/17 0805 Signed Impressions: Service Date/Time: Friday, September 22, 2017 09:47 - CONCLUSION: 1. Significant stenosis involving the left vertebral artery measuring 50-60%%. Bolus infused CT angiography of the brain is recommended for further evaluation. Kvng Santos MD Head CT 09/21/17 1400 Signed Impressions: Service Date/Time: Thursday, September 21, 2017 16:18 - CONCLUSION: Stable left thalamic hemorrhage. Jose Alejandro Ochoa MD Brain MRI 09/20/17 1224 Signed Impressions: Service Date/Time: Wednesday, September 20, 2017 13:44 - CONCLUSION: 1.8 cm area of signal abnormality in left thalamus. The signal characteristics suggest a hyperacute focal hemorrhage or a subacute area of infarction. Johan Hernandez MD Lumbar Spine MRI 09/20/17 0000 Signed Impressions: Service Date/Time: Wednesday, September 20, 2017 13:44 - CONCLUSION: Slightly disc bulge and protrusion L4-5 without any significant thecal sac stenosis. Jose Alejandro Ochoa MD Cervical Spine MRI 09/20/17 0000 Signed Impressions: Service Date/Time: Wednesday, September 20, 2017 13:44 - CONCLUSION: 1. Mild asymmetric disc bulge and osteophyte formation being worse on the right at the C5-C6 level. There is right uncovertebral hypertrophy at this level with narrowing of the right neural foramina. 2. Mild central disc protrusion at the C3-C4 level. 3. Minimal central disc protrusion at the C4-C5 level. Johan Hernandez MD PE at Discharge GENERAL: Well-nourished, well-developed 51-year-old male patient lying in bed SKIN: Bilateral lower extremities has loss of hair with shiny skin, slightly atrophied muscles ENT: No nasal bleeding or discharge. Mild right facial droop CARDIOVASCULAR: Regular rate and rhythm. No murmur appreciated. RESPIRATORY: No accessory muscle use. Clear to auscultation. Breath sounds equal bilaterally. GASTROINTESTINAL: Abdomen soft, non-tender, nondistended. Hepatic and splenic margins not palpable. NEUROLOGICAL: Awake and alert. Oriented 3. Mild right facial droop no other obvious cranial nerve deficits. Motor grossly within normal limits. Normal speech. Pt update on day of discharge Feel much imprpved. Ambulating with a walker and says is doing well. No new motor deficit.No n/v/d/c. No change in vision Had echo today Hospital Course Patient is a 51-year-old male with past medical history significant for type 2 diabetes, hypertension, dyslipidemia, diabetic neuropathy who presented initially to the emergency department for bilateral feet numbness and tingling. He also reported taking a shower patient felt his feet are heavy. He thought he was going to fall, but did not fall. He was weaker on the right side and also had difficulty walking. In the ER initially MRI of the brain and C-spine were done because of bilateral symptoms. MRI was suggestive of a left thalamic hemorrhage which was confirmed on the CT of the brain. Critical care medicine was requested to admit this patient. Neurosurgery Dr. Velarde also had been consulted. Initial blood pressure on arrival was 210/102. Patient had grossly equal strength on both sides but still has mild right facial droop. Neurosurgery consulted conservative management Patient with Acute left thalamic hemorrhage. Neurosurgery consult with Dr. Velarde -medical management recommended Target systolic blood pressure less than 150 diastolic less than 95 - MRI/A reviewed with the patient/ and with Dr Reynolds neurology. Patient also with 60% left vertebral artery stenosis, recommended medical management No ASA at DC No statin at DC , can restart ASA in 1 month per neurology Keep SBP< 160 per neurosurgeon. Lower BP to 120/70 in 2 days after DC to follow up as Op with PCP and adjust meds as indicated keep normotensive. Also patient had 2D ECHO reviewed with mild low EF 45-50 %. Patient was starte don low dose of metoprolol 12.5 bid, also lisinopril increased to 30 mg po bid, norvasc at 10 at DC. Keep normotensive, normoglycemic. Improved to follow up as OP with PCP and consultants. DC home with home health in stable condition Pt Condition on Discharge: Stable Discharge Disposition: Disch w/ Home Health Serv Discharge Time: > 30 minutes Discharge Instructions DIET: Follow Instructions for: Heart Healthy Diet, Diabetic Diet Speech Therapy-Diet Recommends: Regular Activities you can perform: Regular-No Restrictions Follow up Referrals: Appointment for Follow Up Appointment for Follow Up Neurology - 1 Week with Kvng Reynolds MD Neurosurgery - 1 Week with Irineo Velarde MD PCP Follow-up - 2-3 Days PCP Follow-up New Medications: Metoprolol Tartrate (Metoprolol Tartrate) 25 Mg Tab 12.5 MG PO BID for Blood Pressure Management, #60 TAB 0 Refills Walker Rolling/GetGo (Walker Rolling/GetGo) 1 Mis Mis EA .ROUTE DIRECTED, #1 Amlodipine (Norvasc) 10 Mg Tab 10 MG PO DAILY for Blood Pressure Management, #30 TAB Cyclobenzaprine (Flexeril) 10 Mg Tab 10 MG PO Q8H PRN for muscle stiffness, #[address] (Duloxetine DR) 30 Mg Capdr 30 MG PO BID for neurologic, #60 CAP Lisinopril (Lisinopril) 20 Mg Tab 30 MG PO BID for Blood Pressure Management, #30 TAB Continued Medications: Empagliflozin (Jardiance) 25 Mg Tab 25 MG PO DAILY for Blood Sugar Management, #30 TAB 0 Refills Glimepiride (Glimepiride) 2 Mg Tab 2 MG PO BIDAC for Blood Sugar Management, #60 TAB 0 Refills Insulin Degludec Inj (Tresiba Flextouch Pen Inj) 600 unit/3 ML Pen 20 UNITS SQ DAILY for Blood Sugar Management, #9 ML 0 Refills Metformin (Metformin) 1,000 Mg Tab 1000 MG PO BIDPC for Blood Sugar Management, #60 TAB 0 Refills With meals Discontinued Medications: Amlodipine (Amlodipine) 5 Mg Tab 5 MG PO DAILY for Blood Pressure Management, #30 TAB 0 Refills Atorvastatin (Atorvastatin) 20 Mg Tab 20 MG PO DAILY for Cholesterol Management, #30 TAB 0 Refills Ibuprofen (Ibuprofen) 1 Pow Pow 1000 MG PO DAILY Lisinopril (Lisinopril) 20 Mg Tab 20 MG PO BID, #30 TAB 0 Refills Meloxicam (Meloxicam) 15 Mg Tab 15 MG PO DAILY for Arthritis Pain, #30 TAB 0 Refills Leanna Salazar MD Sep 23, 2017 09:51
--- NOTE | 2017-09-23 09:51 | HHI.FF ---
Face to Face Verification Diagnosis: (1) Hypertension (2) Intraparenchymal hemorrhage of brain (3) Type 2 diabetes mellitus (4) Dyslipidemia (5) Hypertensive emergency (6) Acute left thalamic hemorrhage Physical Therapy Order: Evaluate and Treat Home Health Nursing Order: Medical education Signs/symptoms of disease process Diabetic education Medication education-adverse effect Nursing assessment with vital signs I have seen patient Bony Chun on 09/23/17. My clinical findings support the need for the requested home health care services because: Ltd mobility - disease progression Deconditioned w/ increased weakness I certify that my clinical findings support that this patient is homebound because: Post-op weakness Hx COPD- exertion dyspnea/weakness Unsteady gait/balance Leanna Salazar MD Sep 23, 2017 09:51
[2017-09-23] MEDS ORDERED: GETGO ROLLING W1 MI1 (09:54)
--- NOTE | 2017-09-23 11:47 | HHI.NSPN ---
(Lynette Cuellar) Note Status Status: Progress Note (Lynette Cuellar) Interval History Interval History This is a 51-year-old male with history of type 2 diabetes, hypertension, dyslipidemia, diabetic neuropathy who presented initially to the emergency department with new onset feet numbness and tingling. While taking a shower patient felt his feet became very heavy. He thought he was going to fall, but did not fall. He was weaker on the right upper and lower extremity and also had difficulty walking. No seizure acivity. No tongue bitting. no incontinence of stool or urine. In the ER MRI of the brain and C-spine were done because of bilateral symptoms. MRI was suggestive of a left thalamic hemorrhage which was confirmed on the CT of the brain. Critical care medicine was requested to admit this patient. Neurosurgery consultation was requested. 09/21/17: right side strength better today, blood pressure better controlled of cardizem drip. 09/22/17: f/u CT Head stable thalamic bleed, right side strength improving, Neurology work up in progress 09/23/17: cleared for dc from Neurology. no new neurological complaints overnight , feeling well and eager to go home (Lynette Cuellar) Labs, Micro, & Vital Signs Results Date Time Temp Pulse Resp B/P (MAP) Pulse Ox O2 Delivery O2 Flow Rate FiO2 09/23/17 10:47 67 09/23/17 07:42 97.5 70 18 153/84 (107) 97 09/23/17 06:18 75 138/82 (100) 09/23/17 05:25 97.4 87 19 168/79 (108) 98 09/23/17 03:55 67 09/23/17 02:43 97 Room Air 09/23/17 00:56 97.2 71 18 135/66 (89) 96 09/23/17 00:01 67 09/22/17 22:34 97.4 69 16 175/101 (125) 97 09/22/17 21:12 89 09/22/17 19:00 70 09/22/17 18:08 154/74 (100) 09/22/17 15:46 98.4 77 20 176/81 (112) 98 Constitutional Vital Signs Date Time Temp Pulse Resp B/P (MAP) Pulse Ox O2 Delivery O2 Flow Rate FiO2 09/23/17 10:47 67 09/23/17 07:42 97.5 70 18 153/84 (107) 97 09/23/17 06:18 75 138/82 (100) 09/23/17 05:25 97.4 87 19 168/79 (108) 98 09/23/17 03:55 67 09/23/17 02:43 97 Room Air 09/23/17 00:56 97.2 71 18 135/66 (89) 96 09/23/17 00:01 67 09/22/17 22:34 97.4 69 16 175/101 (125) 97 09/22/17 21:12 89 09/22/17 19:00 70 09/22/17 18:08 154/74 (100) 09/22/17 15:46 98.4 77 20 176/81 (112) 98 (Lynette Cuellar) Review of Systems Constitutional: DENIES: Fever, Chills Neurologic: DENIES: Headache, Seizures (Lynette Cuellar) Physical Exam Mr. Chun is alert, awake and oriented to time, place and person. Speech is fluent. Cranial nerve examination demonstrates the pupils to be equal, round, and reactive to light. Extra-ocular movements are intact. Facial motor function shows a mild supranuclear right facial droop. Neck is soft and supple. Muscle strength: mild right hemiparesis, moves left side with normal strength Sensory examination is intact to light touch in both the upper and lower extremities, symmetrically. Deep tendon reflexes are 2+ in the upper and lower extremities. There is a bilateral plantar flexion response. Cerebellar examination is intact to [id number] test (Lynette Cuellar) Mr. Chun is alert, awake and oriented to time, place and person. Speech is fluent. Cranial nerve examination demonstrates the pupils to be equal, round, and reactive to light. Extra-ocular movements are intact. Facial motor function shows a mild supranuclear right facial droop. Neck is soft and supple. Muscle strength: mild right hemiparesis, moves left side with normal strength Sensory examination is intact to light touch in both the upper and lower extremities, symmetrically. Deep tendon reflexes are 2+ in the upper and lower extremities. There is a bilateral plantar flexion response. Cerebellar examination is intact (Irineo Velarde MD) Medications Current Medications Current Medications Medications (Trade) Dose Ordered Sig/Wilber Route PRN Reason Start Time Stop Time Status Last Admin Dose Admin Atorvastatin Calcium (Lipitor) 20 mg DAILY PO 09/21/17 09:00 09/23/17 08:53 Insulin Aspart (NovoLOG SUPPLEMENTAL SCALE) 1 Q4H SQ 09/20/17 16:15 09/23/17 08:55 Dextrose (D50w (Vial) Inj) 50 ml UNSCH PRN IV PUSH HYPOGLYCEMIA - SEE COMMENTS 09/20/17 16:15 Glucagon (Glucagon Inj) 1 mg UNSCH PRN OTHER HYPOGLYCEMIA-SEE COMMENTS 09/20/17 16:15 Famotidine (Pepcid Inj) 20 mg Q12HR IV PUSH 09/20/17 21:00 09/23/17 08:54 Albuterol/ Ipratropium (Duoneb Neb) 1 ampule Q4HR NEB PRN INH WHEEZING 09/20/17 16:15 Miscellaneous Information 1 Q361D XX 09/20/17 16:15 Chlorhexidine Gluconate (Chlorhexidine 2% Cloth) 3 pack Taper DAILY@04 TOP 09/21/17 04:00 09/17/18 03:59 Chlorhexidine Gluconate (Chlorhexidine 2% Cloth) 3 pack UNSCH PRN TOP HYGIENIC CARE 09/20/17 16:15 Senna/Docusate Sodium (Lauren-Colace) 1 tab BID PO 09/20/17 21:00 Magnesium Hydroxide (Milk Of Magnesia Liq) 30 ml Q12H PRN PO Mild constipation 09/20/17 16:15 Sennosides (Senokot) 17.2 mg Q12H PRN PO Moderate constipation 09/20/17 16:15 Bisacodyl (Dulcolax Supp) 10 mg DAILY PRN RECTAL SEVERE CONSITIPATION 09/20/17 16:15 Lactulose (Lactulose Liq) 30 ml DAILY PRN PO SEVERE CONSITIPATION 09/20/17 16:15 Hydralazine HCl (Apresoline Inj) 20 mg Q4H PRN IV PUSH SYS BP GREATER THAN 150 MMHG 09/20/17 16:30 1/2/18 04:08 Acetaminophen (Tylenol) 650 mg Q4H PRN PO PAIN 1-2 09/20/17 20:15 Amlodipine Besylate (Norvasc) 10 mg DAILY PO 09/21/17 09:00 09/23/17 08:53 Labetalol HCl (Trandate Inj) 20 mg Q4H PRN IV PUSH SBP >155 09/21/17 07:45 09/21/17 08:34 Insulin Detemir (Levemir Inj) 5 units Q12HR SQ 09/21/17 09:00 09/23/17 08:55 Cyclobenzaprine HCl (Flexeril) 10 mg Q8H PRN PO muscle stiffness 09/21/17 08:00 Clonidine (Catapres) 0.1 mg Q6H PRN PO SBP >150/95 09/21/17 20:45 09/22/17 15:50 Duloxetine HCl (Cymbalta Dr) 30 mg BID PO 09/23/17 09:00 09/23/17 08:53 Diltiazem HCl (Cardizem) 30 mg Q6H PRN PO SBP>150, DBP>90, HR>65 09/22/17 11:00 Hydralazine HCl (Apresoline) 10 mg Q6H PRN PO SBP>150, DBP>90 09/22/17 11:00 Lisinopril (Prinivil) 30 mg BID PO 09/23/17 21:00 (Lynette Cuellar) Current Medications Current Medications Labetalol HCl (Trandate Inj) 20 mg ONCE ONCE IV PUSH ; Start 09/20/17 at 13:15; Stop 09/20/17 at 13:15; Status DC Gadodiamide (Omniscan Pf Inj) 18 ml STK-MED ONCE IVCONTRAST Last administered on 09/20/17at 12:04; Start 09/20/17 at 12:04; Stop 09/20/17 at 15:39; Status DC Nicardipine HCl 25 mg/Sodium Chloride 250 ml @ 0 mls/hr TITRATE ONCE IV Last administered on 09/20/17at 16:36; Start 09/20/17 at 16:15; Stop 09/20/17 at 16:16; Status DC Amlodipine Besylate (Norvasc) 5 mg DAILY PO ; Start 09/21/17 at 09:00; Stop at 09:00; Status DC Atorvastatin Calcium (Lipitor) 20 mg DAILY PO Last administered on 09/23/17at 08: 53; Start 09/21/17 at 09:00; Stop 09/23/17 at 16:57; Status DC Lisinopril (Prinivil) 20 mg BID PO Last administered on 09/23/17at 08:53; Start 09/20/17 at 21:00; Stop 09/23/17 at 09:46; Status DC Insulin Aspart (NovoLOG SUPPLEMENTAL SCALE) 1 Q4H SQ Last administered on at 13:21; Start 09/20/17 at 16:15; Stop 09/23/17 at 16:57; Status DC Dextrose (D50w (Vial) Inj) 50 ml UNSCH PRN IV PUSH HYPOGLYCEMIA - SEE COMMENTS ; Start 09/20/17 at 16:15; Stop 09/23/17 at 16:57; Status DC Glucagon (Glucagon Inj) 1 mg UNSCH PRN OTHER HYPOGLYCEMIA-SEE COMMENTS; Start 09/20/17 at 16:15; Stop 09/23/17 at 16:57; Status DC Sodium Chloride 1,000 ml @ 50 mls/hr Q20H IV Last administered on 09/22/17at 10: 30; Start 09/20/17 at 16:12; Stop 09/22/17 at 20:19; Status DC Morphine Sulfate (Morphine Inj) 4 mg Q2H PRN IV PAIN SCALE 6-10; Start 09/20/17 at 16:30; Stop 09/22/17 at 08:05; Status DC Famotidine (Pepcid Inj) 20 mg Q12HR IV PUSH Last administered on 09/23/17at 08:54 ; Start 09/20/17 at 21:00; Stop 09/23/17 at 16:57; Status DC Albuterol/ Ipratropium (Duoneb Neb) 1 ampule Q4HR NEB PRN INH WHEEZING; Start 09/20/17 at 16:15; Stop 09/23/17 at 16:57; Status DC Miscellaneous Information 1 Q361D XX ; Start 09/20/17 at 16:15; Stop 09/23/17 at 16:57; Status DC Chlorhexidine Gluconate (Chlorhexidine 2% Cloth) 3 pack Taper DAILY@04 TOP ; Start 09/21/17 at 04:00; Stop 09/23/17 at 16:57; Status DC Chlorhexidine Gluconate (Chlorhexidine 2% Cloth) 3 pack UNSCH PRN TOP HYGIENIC CARE; Start 09/20/17 at 16:15; Stop 09/23/17 at 16:57; Status DC Senna/Docusate Sodium (Lauren-Colace) 1 tab BID PO ; Start 09/20/17 at 21:00; Stop 09/23/17 at 16:57; Status DC Magnesium Hydroxide (Milk Of Magnesia Liq) 30 ml Q12H PRN PO Mild constipation ; Start 09/20/17 at 16:15; Stop 09/23/17 at 16:57; Status DC Sennosides (Senokot) 17.2 mg Q12H PRN PO Moderate constipation; Start 09/20/17 at 16:15; Stop 09/23/17 at 16:57; Status DC Bisacodyl (Dulcolax Supp) 10 mg DAILY PRN RECTAL SEVERE CONSITIPATION; Start at 16:15; Stop 09/23/17 at 16:57; Status DC Lactulose (Lactulose Liq) 30 ml DAILY PRN PO SEVERE CONSITIPATION; Start at 16:15; Stop 09/23/17 at 16:57; Status DC Potassium Chloride 100 ml @ 50 mls/hr Q2H PRN IV For Potassium 2.8 - 3.2 mEq/L ; Start 09/20/17 at 16:15; Stop 09/22/17 at 09:10; Status DC Potassium Chloride 100 ml @ 50 mls/hr Q2H PRN IV For Potassium 2.8 - 3.2 mEq/L ; Start 09/20/17 at 16:15; Stop 09/22/17 at 09:10; Status DC Potassium Bicarb/ Potassium Chloride (K-Lyte Cl Eff) 50 meq UNSCH PRN PO For Potassium 3.3 - 3.5 mEq/L Last administered on 09/21/17at 05:20; Start 09/20/17 at 16:15; Stop 09/22/17 at 09:10; Status DC Potassium Chloride 100 ml @ 25 mls/hr UNSCH PRN IV For Potassium 3.3 - 3.5 mEq /L; Start 09/20/17 at 16:15; Stop 09/22/17 at 09:10; Status DC Potassium Chloride 100 ml @ 50 mls/hr Q2H PRN IV For Potassium 3.3 - 3.5 mEq/L ; Start 09/20/17 at 16:15; Stop 09/22/17 at 09:10; Status DC Magnesium Sulfate 4 gm/Sodium Chloride 100 ml @ 50 mls/hr UNSCH PRN IV For Magnesium 0.9 - 1.1 mg/dL; Start 09/20/17 at 16:15; Stop 09/22/17 at 09:10; Status DC Magnesium Oxide (Mag-Ox) 800 mg UNSCH PRN PO For Magnesium 1.2 - 1.6 mg/dL; Start 09/20/17 at 16:15; Stop 09/22/17 at 09:10; Status DC Magnesium Sulfate 2 gm/Sodium Chloride 100 ml @ 50 mls/hr UNSCH PRN IV For Magnesium 1.2 - 1.6 mg/dL; Start 09/20/17 at 16:15; Stop 09/22/17 at 09:10; Status DC Potassium Phosphate (K-Phos) 2,000 mg Q4H PRN PO For Phosphorus < 2.5 mg/dL; Start 09/20/17 at 16:15; Stop 09/22/17 at 09:10; Status DC Sodium Phosphate 30 mmol/Sodium Chloride 250 ml @ 42 mls/hr UNSCH PRN IV For Phosphorus < 2.5 mg/dL; Start 09/20/17 at 16:15; Stop 09/22/17 at 09:10; Status DC Potassium Phosphate (K-Phos) 2,000 mg UNSCH PRN PO/TUBE SEE LABEL COMMENTS; Start 09/20/17 at 16:15; Stop 09/22/17 at 09:10; Status DC Potassium Phosphate 30 mmol/ Sodium Chloride 260 ml @ 42 mls/hr UNSCH PRN IV SEE LABEL COMMENTS; Start 09/20/17 at 16:15; Stop 09/22/17 at 09:10; Status DC Hydralazine HCl (Apresoline Inj) 20 mg Q4H PRN IV PUSH SYS BP GREATER THAN 150 MMHG Last administered on 09/21/17at 04:08; Start 09/20/17 at 16:30; Stop 09/23/17 at 16:57; Status DC Acetaminophen (Tylenol) 650 mg Q4H PRN PO PAIN 1-2; Start 09/20/17 at 20:15; Stop 09/23/17 at 16:57; Status DC Acetaminophen/ Hydrocodone Bitart ([place] 5-325 Mg) 1 tab Q4H PRN PO PAIN 3-5; Start 09/20/17 at 20:15; Stop 09/22/17 at 08:05; Status DC Nicardipine HCl 25 mg/Sodium Chloride 250 ml @ 50 mls/hr TITRATE PRN IV Blood pressure management Last administered on 09/21/17at 02:58; Start 09/20/17 at 21:15 ; Stop 09/21/17 at 07:39; Status DC Amlodipine Besylate (Norvasc) 10 mg DAILY PO Last administered on 09/23/17at 08: 53; Start 09/21/17 at 09:00; Stop 09/23/17 at 16:57; Status DC Labetalol HCl (Trandate Inj) 20 mg Q4H PRN IV PUSH SBP >155 Last administered on 09/21/17at 08:34; Start 09/21/17 at 07:45; Stop 09/23/17 at 16:57; Status DC Insulin Detemir (Levemir Inj) 5 units Q12HR SQ Last administered on 09/23/17at 08 :55; Start 09/21/17 at 09:00; Stop 09/23/17 at 16:57; Status DC Cyclobenzaprine HCl (Flexeril) 10 mg Q8H PRN PO muscle stiffness; Start at 08:00; Stop 09/23/17 at 16:57; Status DC Clonidine (Catapres) 0.1 mg Q6H PRN PO SBP >150/95 Last administered on at 15:50; Start 09/21/17 at 20:45; Stop 09/23/17 at 16:57; Status DC Duloxetine HCl (Cymbalta Dr) 30 mg ONCE ONCE PO Last administered on 09/22/17at 10:13; Start 09/22/17 at 09:00; Stop 09/22/17 at 09:01; Status DC Duloxetine HCl (Cymbalta Dr) 30 mg BID PO Last administered on 09/23/17at 08:53; Start 09/23/17 at 09:00; Stop 09/23/17 at 16:57; Status DC Gadodiamide (Omniscan Pf Inj) 20 ml STK-MED ONCE IVCONTRAST Last administered on 09/22/17at 10:04; Start 09/22/17 at 10:04; Stop 09/22/17 at 10:05; Status DC Diltiazem HCl (Cardizem) 30 mg Q6H PRN PO SBP>150, DBP>90, HR>65; Start at 11:00; Stop 09/23/17 at 16:57; Status DC Hydralazine HCl (Apresoline) 10 mg Q6H PRN PO SBP>150, DBP>90; Start 09/22/17 at 11:00; Stop 09/23/17 at 16:57; Status DC Sodium Chloride 1,000 ml @ 75 mls/hr [id number] IV Last administered on 09/22/17at 19:35; Start 09/22/17 at 19:35; Stop 09/23/17 at 09:46; Status DC Iohexol (Omnipaque 350 Inj) 75 ml STK-MED ONCE IVCONTRAST Last administered on 09/22/17at 20:15; Start 09/22/17 at 20:15; Stop 09/22/17 at 20:16; Status DC Lisinopril (Prinivil) 30 mg BID PO ; Start 09/23/17 at 21:00; Stop 09/23/17 at 21: 00; Status DC Potassium Bicarbonate (Effer-K Eff) 50 meq ONCE ONCE PO Last administered on at 10:25; Start 09/23/17 at 09:45; Stop 09/23/17 at 10:12; Status DC Lisinopril (Prinivil) 10 mg ONCE ONCE PO Last administered on 09/23/17at 13:21; Start 09/23/17 at 12:00; Stop 09/23/17 at 12:17; Status DC (Irineo Velarde MD) Medical Decision Making MDM Remarks 51 year old male with acute left thalamic hemorrhage, right hemiparesis, stable f/u CT Head hypertensive crisis (Lynette Cuellar) MDM Remarks Last 48 hours Impressions Neck CTA [id number] Signed Impressions: Service Date/Time: Friday, September 22, 2017 20:03 - CONCLUSION: Atherosclerotic plaquing with areas of soft plaque involving the origin of both internal carotid arteries which also demonstrate ulceration without any significant stenosis. Jose Alejandro Ochoa MD Head CTA [id number] Signed Impressions: Service Date/Time: Friday, September 22, 2017 20:03 - CONCLUSION: Unremarkable study. Jose Alejandro Ochoa MD (Irineo Velarde MD) Plan Plan Remarks cont nonsurgical management cont work up per Neurology medical mgt and blood pressure control nonchemical dvt prophylaxis in view of acute ICH protonix for stress ulcer prophylaix cont PT, OT ok for dc once cleared medically (Lynette Cuellar) Attending Statement Thalamic hemorrhage. Continue neuro checks. Continue nonoperative treatment. Cleared for discharge Uncontrolled arterial hypertension. Continue antihypertensives to maintain the systolic blood pressure less than 160 Electrolytes replacement per ICU protocol Endocrine. Diabetes. Continue to Monitor serial Acu checks and SSI as needed in detail Nutrition. Oral diet Renal. Continue to monitor closely urine output, BUN and creatinine ID continue to monitor for signs of infection Continue Protonix for stress ulcer prophylaxis Continue Obed hose and SCD's for DVT prophylaxis, OK to discharge The exam, history, and the medical decision-making described in the above note were completed with the assistance of the mid-level provider. I reviewed and agree with the findings presented. I attest that I had a [id number] encounter with the patient on the same day, and personally performed and documented my assessment and findings in the medical record. (Irineo Velarde MD) Lynette Cuellar Sep 23, 2017 11:47 Irineo Velarde MD Sep 24, 2017 10:15
[2017-09-23] MEDS ORDERED: LISINOPRIL 10 MG TAB PO ONE (12:00)
--- NOTE | 2017-09-23 14:25 | ECHRPT ---
Indication: CVA/TIA CONCLUSIONS The left ventricular systolic function is mildly reduced with an estimated ejection fraction in the range of 45- 50%. Mild concentric left ventricular hypertrophy. Normal left ventricular size. Mild mitral valve regurgitation. There is trace tricuspid valve regurgitation. The estimated pulmonary arterial pressure is 25.5 mmHg. BP: / HR: 69 Rhythm: Sinus MEASUREMENTS (Male / Female) Normal Values Technical Quality:Good 2D ECHO LV Diastolic Diameter PLAX 5.0 cm 4.2 - 5.9 / 3.9 - 5.3 cm LV Systolic Diameter PLAX 3.6 cm IVS Diastolic Thickness 1.2 cm 0.6 - 1.0 / 0.6 - 0.9 cm LVPW Diastolic Thickness 1.2 cm 0.6 - 1.0 / 0.6 - 0.9 cm LV Relative Wall Thickness 0.5 LVOT Diameter 2.0 cm M-MODE Aortic Root Diameter MM 2.7 cm LA Systolic Diameter MM 3.8 cm LA Ao Ratio MM 1.4 AV Cusp Separation MM 1.9 cm DOPPLER AV Peak Velocity 122.0 cm/s AV Peak Gradient 6.0 mmHg LVOT Peak Velocity 89.3 cm/s LVOT Peak Gradient 3.2 mmHg AV Area Cont Eq pk 2.3 cm MR Peak Velocity 299.0 cm/s MR Peak Gradient 35.8 mmHg Mitral E Point Velocity 63.2 cm/s Mitral A Point Velocity 53.3 cm/s Mitral E to A Ratio 1.2 LV E' Lateral Velocity 6.0 cm/s Mitral E to LV E' Lateral Ratio 10.5 LV E' Septal Velocity 5.3 cm/s Mitral E to LV E' Septal Ratio 11.9 TR Peak Velocity 197.0 cm/s TR Peak Gradient 15.5 mmHg Right Atrial Pressure 10.0 mmHg Pulmonary Artery Systolic Pressu 25.5 mmHg Right Ventricular Systolic Press 25.5 mmHg PV Peak Velocity 105.0 cm/s PV Peak Gradient 4.4 mmHg FINDINGS LEFT VENTRICLE The left ventricular systolic function is mildly reduced with an estimated ejection fraction in the range of 45- 50%. Mild concentric left ventricular hypertrophy. Normal left ventricular size. RIGHT VENTRICLE Normal right ventricular size and systolic function. LEFT ATRIUM The left atrial size is normal. RIGHT ATRIUM The right atrial size is normal. ATRIAL SEPTUM Normal atrial septal thickness without atrial level shunting by limited color doppler interrogation. AORTA The aortic root and proximal ascending aorta are normal in size on limited imaging. MITRAL VALVE Mild mitral valve regurgitation. AORTIC VALVE Trileaflet aortic valve. No aortic valve stenosis or regurgitation. TRICUSPID VALVE There is trace tricuspid valve regurgitation. The estimated pulmonary arterial pressure is 25.5 mmHg. PULMONARY VALVE No pulmonary valve regurgitation or stenosis. VESSELS The inferior vena cava is normal in size. PERICARDIUM No pericardial effusion. Glenn Gavin MD (Electronically Signed) Final Date:23 September 2017 14:24
[2017-09-23] MEDS ORDERED: METO25TA3 PO (15:04)
[2017-09-23 15:56] LABS: HEMOGLOBIN A1C 8.1 % (4.3-6.0)
[2017-09-23] MEDS ORDERED: LISINOPRIL 10 MG TAB PO SCH (21:00)
[2017-09-24 14:50] LABS: ANA SCREEN NEG (NEG)
[2017-09-25 00:08] LABS: METHYLMALONIC ACID 0.06 nmol/mL (<=0.40)
== END 2017-09-23 16:56 | disposition home health service (06) | DRG 65 ==
LOC: NEPC 12:03 → NEDA 16:13 → N03A 19:14 → N05B 09-21 18:11
PROVIDERS: ADMIT Hospitalist; ATTEND Hospitalist
DX: I61.8 Other nontraumatic intracerebral hemorrhage (principal); I16.1 Hypertensive emergency; I11.0 Hypertensive heart disease with heart failure; E11.42 Type 2 diabetes mellitus with diabetic polyneuropathy; G81.91 Hemiplegia, unspecified affecting right dominant side; J45.909 Unspecified asthma, uncomplicated; E78.00 Pure hypercholesterolemia, unspecified; R29.810 Facial weakness; G89.29 Other chronic pain; Z79.84 Long term (current) use of oral hypoglycemic drugs
CPT/HCPCS: 70450; 70496; 70498; 70544; 70548; 70553; 72141; 72148; 80048; 80053; 80061; 82607; 82948; 83036; 83735; 83921; 84100; 84165; 84207; 84425; 84439; 84443; 85025; 85652; 86038; 86430; 86592; 93005; 93306; 96374; A9579; J0360; J1815; J7030; J7050; Q9967

== ENCOUNTER → 2017-12-14 | Outpatient (CLI) | payer OTHER ==
[~2017-12-14] MED LIST changes: -ADVI200C5 PO; +AMLO10 PO; -AMLO5TAB2 PO; -CINN500C PO; +CYCL10TA PO; +DULO1CAP2 PO; +EMPA1TAB3 PO; +GETGO ROLLING W1 MI1; -HYDR25TA5 PO; +METO25TA3 PO; -[UNRECOGNIZED DRUG - CODE] PO; -[UNRECOGNIZED DRUG - CODE] PO
[2017-12-14 10:37] LABS: AST (GOT) 19 U/L (15-37); BLOOD UREA NITROGEN 19 MG/DL (7-18); CALCIUM 9.1 MG/DL (8.5-10.1); CHLORIDE 108 MEQ/L (98-107); CREATININE 0.85 MG/DL (0.60-1.30); GLOMERULAR FILTRATION RATE 94 ML/MIN (>89); GLUCOSE,FASTING 195 MG/DL (74-99); SODIUM (NA) 143 MEQ/L (136-145)
[2017-12-14 10:38] LABS: CHOLESTEROL 242 MG/DL (120-200); TRIGLYCERIDES 226 MG/DL (42-150)
[2017-12-14 10:41] LABS: ALKALINE PHOSPHATASE 128 U/L (45-117); ALT (GPT) 44 U/L (12-78); CHOLESTEROL/ HDL RATIO 6.87 RATIO; HDL CHOLESTEROL 35.2 MG/DL (40.0-60.0); LDL CHOLESTEROL 162 MG/DL (0-99); TOTAL BILIRUBIN ADULT 0.3 MG/DL (0.2-1.0); TOTAL PROTEIN 7.8 GM/DL (6.4-8.2)
[2017-12-15 21:09] LABS: HEMOGLOBIN A1C 7.6 % (4.3-6.0)
== END ==
LOC: OLAB 08:10
PROVIDERS: ATTEND Family Medicine
DX: E78.5 Hyperlipidemia, unspecified (principal); E11.49 Type 2 diabetes mellitus with other diabetic neurological complication
CPT/HCPCS: 36415; 80053; 80061; 82043; 83036; 84378

== ENCOUNTER → 2018-03-09 | Outpatient (CLI) | payer OTHER ==
[2018-03-09 14:00] LABS: RHEUMATOID FACTOR SCREEN NEGATIVE (NEGATIVE)
[2018-03-09 18:08] LABS: HEMOGLOBIN A1C 7.5 % (4.3-6.0)
== END ==
LOC: OLAB 09:07
PROVIDERS: ATTEND Family Medicine
DX: M06.4 Inflammatory polyarthropathy (principal); E11.319 Type 2 diabetes mellitus with unspecified diabetic retinopathy without macular edema
CPT/HCPCS: 36415; 83036; 84550; 85652; 86038; 86430

== ENCOUNTER 2018-09-06 05:35 | Inpatient (IN) ==
[~2018-09-06 05:35] MED LIST changes: -AMLO10 PO; -CYCL10TA PO; -DULO1CAP2 PO; -EMPA1TAB3 PO; -GETGO ROLLING W1 MI1; -GLIM2TAB PO; -INSU1INJ13 SQ; -LISI-515 PO; -METF1000 PO; -METO25TA3 PO; +Metoprolol Tartrate 25 MG Tablet PO SCH
[2018-09-06] MEDS ORDERED: Insulin Regular (For Infusion) 100 UNIT in Sodium Chlor 0.9% Inj 99 ML IV.CONT PRN ×2 (06:13→11:07)
[2018-09-06] MEDS ORDERED: Chlorhexidine 4% Topical 120 APPLIC/120 ML Bottle TOPICAL SCH (06:15)
[2018-09-06] MEDS ORDERED: Sodium Chlor 0.9% Inj 77.5 ML, Papaverine Inj 60 MG, Nitroglycerin Inj 100 MCG, dilTIAZ... IRRIGATION SCH ×3 (06:15)
[2018-09-06] MEDS ORDERED: Sodium Chloride 0.9% Irr Bot 500 ML, ceFAZolin Inj 500 MG IRRIGATION SCH ×2 (06:15)
[2018-09-06] MEDS ORDERED: ceFAZolin 2 GM Premix Inj 2 GM/50 ML PIGGYBACK IV.SIG SCH ×2 (06:20→14:00)
[2018-09-06] MEDS ORDERED: Sodium Chlor 0.9% Inj 500 ML IV.CONT ONE (06:30)
[2018-09-06] MEDS ORDERED: Chlorhexidine Gluconate 2% 1 Pack (2 Cloths) TOPICAL ONE (06:30)
[2018-09-06] MEDS ORDERED: Metoprolol Tartrate 25 MG Tablet PO ONE (06:30)
[2018-09-06] MEDS ORDERED: Sugammadex Inj 200 MG/2 ML Vial IV.PUSH ONE (06:44)
[2018-09-06] MEDS ORDERED: ceFAZolin 1 GM Premix Inj 2 GM/100 ML PIGGYBACK IV.SIG ONE (06:44)
[2018-09-06] MEDS ORDERED: fentaNYL Citrate Inj 1,000 MCG/20 ML Vial ONE (06:45)
[2018-09-06] MEDS ORDERED: Heparin - SQ 10,000 UNITS/ML Vial ONE ×3 (06:45→10:15)
[2018-09-06] MEDS ORDERED: MethylPREDNISolone Sod Succinate Inj 125 MG/2 ML Vial ONE (06:45)
[2018-09-06] MEDS ORDERED: Cardioplegic Irr Soln 2,000 ML IRRIGATION ONE (07:18)
[2018-09-06] MEDS ORDERED: Potassium Chloride Inj 40 MEQ/20 ML Vial ONE (07:19)
[2018-09-06] MEDS ORDERED: Albumin Human 25% Inj 50 ML IV.SIG ONE (07:19)
[2018-09-06] MEDS ORDERED: Calcium Chloride Inj 1 GM/10 ML Syringe ONE (07:21)
[2018-09-06] MEDS ORDERED: Nitroglycerin Drip Premix 50 MG/250 ML BOTTLE ONE (08:42)
[2018-09-06] MEDS ORDERED: fentaNYL Citrate Inj 250 MCG/5 ML Ampul ONE (08:42)
[2018-09-06] MEDS ORDERED: Protamine Sulfate Inj 50 MG/5 ML Vial ONE (10:15)
[2018-09-06] MEDS ORDERED: Calcium Chloride Inj 1 GM in Sodium Chlor 0.9% Inj 100 ML IV.SIG PRN (11:07)
[2018-09-06] MEDS ORDERED: Albumin Human 5% Inj 250 ML IV.SIG PRN (11:07)
[2018-09-06] MEDS ORDERED: Post-op Orders (for Pharmacy) OTHER STA (11:07)
[2018-09-06] MEDS ORDERED: Dextrose 50% in Water 50 ML Vial IV.PUSH PRN (11:07)
[2018-09-06] MEDS ORDERED: RESP: Racemic Epinephrine 2.25% 0.5 ML Neb NEB PRN (11:07)
[2018-09-06] MEDS ORDERED: Potassium Chlor 20 mEq Premix 20 MEQ/100 ML PIGGYBACK IV.SIG PRN ×2 (11:07)
[2018-09-06] MEDS ORDERED: hydrALAZINE HCl Inj 20 MG/ML Vial IV.PUSH PRN (11:07)
[2018-09-06] MEDS ORDERED: Calcium Chloride Inj 1 GM/10 ML Syringe IV.PUSH PRN (11:07)
[2018-09-06] MEDS ORDERED: Magnesium Sulfate Inj 2 GM in Sodium Chlor 0.9% Inj 96 ML IV.SIG PRN ×4 (11:07)
[2018-09-06] MEDS ORDERED: Dexmedetomidine Inj 200 MCG in Sodium Chlor 0.9% Inj 48 ML IV.CONT PRN (11:07)
--- NOTE | 2018-09-06 11:14 | P.OP ---
- Preoperative Diagnosis (1) CAD (coronary artery disease) (2) Angina pectoris Postoperative Diagnosis: same Date of procedure: 09/06/18 Procedure: CABG x 3 VARGAS to LAD - good SVG to OM2 - good SVG to L PDA - good EVH Anesthesia: DAVID Surgeon: Agnes Oliva MD Nuclear Licensing Engineer: Elizabeth Lebron Pathology: none sent Operation and Findings: The risks, benefits, complications, treatment options, and expected outcomes were discussed with the patient. The possibilities of reaction to medication, pulmonary aspiration, perforation of viscus, bleeding, recurrent infection, the need for additional procedures, failure to diagnose a condition, and creating a complication requiring transfusion or operation were discussed with the patient. The patient concurred with the proposed plan, giving informed consent. The site of surgery properly noted/marked. The patient was taken to Operating Room, identified as Bony Chun and the procedure verified as CABG, EVH. A Time Out was held and the above information confirmed. Standard monitoring lines and Pulido catheter were placed. General anesthesia was induced. The patient was prepped and draped in a sterile fashion. A median sternotomy was performed and electrocautery was used to obtain hemostasis. The left internal mammary artery was procured as a pedicle from the 7th rib to the 1st rib in the usual manner. Simultaneously left greater saphenous vein was procured from the left leg using a minimally invasive endoscopic technique. The vein was prepared for anastomosis and the leg wound was irrigated and closed in 2 layers. The pericardium was opened and a pericardial sling was created using interrupted 0 silk sutures. The patient was heparinized for cardiopulmonary bypass and the distal mammary pedicle was instrumented for anastomosis. The heart was instrumented for cardiopulmonary bypass in the usual manner. Antegrade blood cardioplegia was employed. The patient was placed on cardiopulmonary bypass. An aortic cross-clamp was applied and the heart was arrested using cold blood cardioplegia. Antegrade cardioplegia was administered after he each anastomosis. After adequate arrest, the distal right coronary circulation was investigated and the PDA was opened with a [place] blade and found to be a 1.5 millimeter good target. Saphenous vein was approximated to the PDA artery using a running 7 0 Prolene suture. The graft was measured for length and orientation and the proximal anastomosis was constructed to the ascending aorta using a running 5 0 Prolene suture after creating an aortotomy with a 5 millimeter punch. The 2nd circumflex marginal artery was then opened with a [place] blade and found to be a 1.5 millimeter good target. Saphenous vein was approximated to the OM2 artery using a running 7 0 Prolene suture. The graft was measured for length and orientation and was suspended from the pericardium. The distal LAD was opened with a [place] blade and found to be a 1.5 millimeter good target. The left internal mammary artery was approximated to the LAD using a running 7 0 Prolene suture. The pedicle was attached to the epicardium using interrupted 5 0 silk suture. The patient was systemically rewarmed and received a hotshot dose of warm blood cardioplegia. The aorta was vented and the proximal anastomosis to the OM2 graft was accomplished using a running 5 0 Prolene suture after creating an aortotomy was a 5 millimeter punch. The cross-clamp was removed and all proximal and distal anastomoses were examined for hemostasis. The patient was weaned from cardiopulmonary bypass. Protamine was given. There was no adverse reaction. Decannulation was carried out without incident. Wound was checked for hemostasis which was obtained using electrocautery. A 36 Syrian mediastinal and 32 Syrian left pleural chest tubes were placed and secured to the skin with 0 silk suture. The sternum was closed with stainless steel wire. The fascia was closed with 1. PDS. The subcutaneous tissue was closed using a running 2-0 Vicryl suture. The skin was closed with 4- 0 Monocryl. Sterile dressings were placed. At the end of the operation, all sponge, instruments, and needle counts were correct. The patient was transferred to the CVICU in stable condition. Findings: good distal targets, the diagonal and OM1 were too small to graft XC: 50 min CPB: 60 min Drains: mediastinal x 1 pleural x 1 Complications: none
[2018-09-06] MEDS ORDERED: Heparin 10,000 UNITS/10 ML Vial (for IV use) ONE (11:36)
[2018-09-06] MEDS ORDERED: PIGGYBACK IV.SIG ONE (12:01)
[2018-09-06] MEDS ORDERED: POTASSIUM CHLOR IV.SIG ONE (12:01)
--- NOTE | 2018-09-06 12:43 | XR ---
EXAM DATE: 09/06/2018 12:40 PM EST AGE/SEX: 52 years / Male INDICATIONS: Post CABG CLINICAL DATA: This is the patient's subsequent encounter. Patient reports that signs and symptoms h ave been present for 1 day and indicates a pain score of Nonresponsive. MEDICAL/SURGICAL HISTORY: Hypertension. Diabetes mellitus type II. Asthma. None. COMPARISON: [facility] – [place], CHEST 2V PA&LAT, 09/05/2018. . FINDINGS: The endotracheal tube has its tip 3 cm above the clarissa. A nasogastric tube has tip in the proximal s tomach and its side-port in the distal esophagus. Left sided chest tube and mediastinal drain are in good positions. There is no pneumothorax. Right internal jugular central line has its tip in the supe rior vena cava. Minimal central pulmonary vascular congestion is noted. The heart is stable. Median s ternotomy wires are noted. CONCLUSION: 1. Minimal central pulmonary vascular congestion. 2. Multiple tubes and lines are in good positions. Electronically signed by: Eder Dennis MD Board Certified Radiologist 09/06/2018 12:42 PM EST
[2018-09-06] MEDS: Mupirocin 2% Nasal Oint Topical Syringe EACH NARE SCH ×2 (13:02→21:05)
[2018-09-06] MEDS: Amiodarone 200 MG Tablet PO SCH ×2 (13:32→21:05)
[2018-09-06] MEDS: ceFAZolin 1 GM Premix Inj 1 GM/50 ML PIGGYBACK IV.SIG SCH ×2 (14:11→23:09)
[2018-09-06] MEDS: fentaNYL Citrate Inj 100 MCG/2 ML Ampul IV.PUSH PRN ×2 (15:27→17:21)
[2018-09-06] MEDS: Metoprolol Inj 5 MG/5 ML Vial IV.PUSH PRN ×2 (15:27→23:10)
[2018-09-06] MEDS: Clevidipine Inj 25 MG/50 ML VIAL IV.CONT PRN (17:24)
[2018-09-06] MEDS: Glimepiride 2 MG Tablet PO SCH (21:04)
[2018-09-06] MEDS: Metoprolol Tartrate 25 MG Tablet PO SCH (21:05)
[2018-09-07] MEDS: fentaNYL Citrate Inj 100 MCG/2 ML Ampul IV.PUSH PRN ×4 (00:25→08:19)
[2018-09-07] MEDS: Potassium Chlor 20 mEq Premix 20 MEQ/100 ML PIGGYBACK IV.SIG PRN ×2 (03:47→08:54)
[2018-09-07] MEDS: Clevidipine Inj 25 MG/50 ML VIAL IV.CONT PRN (03:49)
[2018-09-07 03:51] LABS: Hematocrit 38.7 % (39.0-51.0); Mean Corpuscular HGB Conc 33.6 % (32.0-36.0); Mean Corpuscular Hemoglobin 30.9 pg (27.0-34.0); Mean Corpuscular Volume 92.1 fL (80.0-100.0); Mean Platelet Volume 8.3 fL (7.0-11.0); Platelet Count 154 th/mm3 (150-450); Red Cell Distribution Width 13.8 % (11.6-17.2)
[2018-09-07 04:21] LABS: Anion Gap 12 meq/L (5-15); Blood Urea Nitrogen 20 mg/dL (7-18); Calcium 8.1 mg/dL (8.5-10.1); Carbon Dioxide 21.8 meq/L (21.0-32.0); Chloride 107 meq/L (98-107); Glomerular Filtration Rate Greater Than 89 mL/min (>89); Glucose,Random 104 mg/dL (74-106); Magnesium 2.1 mg/dL (1.5-2.5); Potassium 3.9 meq/L (3.5-5.1); Sodium 141 meq/L (136-145)
--- NOTE | 2018-09-07 05:35 | XR ---
EXAM DATE: 09/07/2018 5:30 AM EST AGE/SEX: 52 years / Male INDICATIONS: Post CABG. CLINICAL DATA: This is the patient's subsequent encounter. Patient reports that signs and symptoms h ave been present for 2 days and indicates a pain score of 8/10. MEDICAL/SURGICAL HISTORY: Diabetes mellitus type II. Myocardial infarction. Hypertension. As thma. Cardiomyopathy. Stroke. Tonsillectomy. Inguinal hernia repair. CABG. COMPARISON: [facility] [place], CHEST 1V SINGLE AP, 09/06/2018. . FINDINGS: A single AP view of the chest demonstrates minimal left basilar density. Heart normal in size. Previo us CABG. Right jugular central line stable position. Left-sided chest tube. Minimal lucency in the le ft apex but no significant pneumothorax. The cardiomediastinal contours are unremarkable. Osseous st ructures are intact. CONCLUSION: 1. Minimal left basilar density likely atelectasis. 2. Left-sided chest tube with minimal lucency in the left apex but no significant pneumothorax. Electronically signed by: Richardson Alexis MD Board Certified Radiologist 09/07/2018 5:33 AM EST
[2018-09-07] MEDS: Amiodarone 200 MG Tablet PO SCH ×3 (05:39→22:03)
[2018-09-07] MEDS: Metoprolol Inj 5 MG/5 ML Vial IV.PUSH PRN (05:40)
[2018-09-07] MEDS: ceFAZolin 1 GM Premix Inj 1 GM/50 ML PIGGYBACK IV.SIG SCH ×3 (06:17→22:05)
[2018-09-07] MEDS: Metoprolol Tartrate 25 MG Tablet PO SCH ×2 (08:17→22:01)
[2018-09-07] MEDS: Gabapentin 300 MG Capsule PO SCH ×2 (08:17→22:01)
[2018-09-07] MEDS: Ezetimibe 10 MG Tablet PO SCH (08:17)
[2018-09-07] MEDS: Glimepiride 2 MG Tablet PO SCH ×2 (08:18→21:57)
[2018-09-07] MEDS ORDERED: Sod Phosphate/Sod Biphosphate (Adult) Enema 133 ML Bottle RECTAL PRN (08:58)
[2018-09-07] MEDS ORDERED: Bisacodyl 10 MG Supp RECTAL PRN (08:58)
[2018-09-07] MEDS ORDERED: Dextrose 50% in Water 50 ML Vial IV.PUSH PRN (08:58)
[2018-09-07] MEDS ORDERED: Lisinopril 20 MG Tablet PO SCH (09:00)
[2018-09-07] MEDS ORDERED: amLODIPine 5 MG Tablet PO SCH (09:00)
[2018-09-07] MEDS ORDERED: EMPAGLIFLOZIN 25 MG PO SCH (09:00)
[2018-09-07] MEDS: Mupirocin 2% Nasal Oint Topical Syringe EACH NARE SCH ×2 (10:07→21:57)
[2018-09-07] MEDS ORDERED: Ketorolac Inj 30 MG/ML (IVP) Vial IV.PUSH ONE (11:45)
[2018-09-07] MEDS ORDERED: Metoprolol Tartrate 25 MG Tablet PO SCH (12:00)
[2018-09-07] MEDS ORDERED: Metoprolol Tartrate 25 MG Tablet PO ONE (12:15)
--- NOTE | 2018-09-07 12:30 | P.DIET ---
Nutritional Evaluation Type of nutrition evaluation: initial Nutrition screening: [facility] [place] Screening comments: 09/07/18 [facility] Diet Education Objective - Diagnosis CABG - Objective Dietitian Reviewed in Medical Record: Current diet, Medical history Diet Order: Cardiac 1800ADA 20g Fat Objective Comments: CABG 09/06/18 Assessment Assessment: Pt is s/p CABG 09/06/18. [facility] for Diet Education. Patient Navigator to provide education. Please Consult RD if complexities with diet education arise. Recommendations: 1. Patient Navigator to provide education 2. Please Consult RD if complexities with diet education arise
[2018-09-07] MEDS: Multivitamin/Minerals Therapeutic Tablet PO SCH (12:32)
[2018-09-07] MEDS: Insulin NovoLOG Aspart Correctional Sugar Inj SQ SCH ×3 (13:46→22:04)
--- NOTE | 2018-09-07 14:34 | P.PNCV ---
- Note CVT: Post Op Day #: 1 Subjective/Hospital Course: 52yr , male seen initially in the [facility] office 08/09/[address] Oliva, HX of CAD, s/ p heart cath by Dr Neville with multivessel CAD EF 50% with inferior wall hypokinesis. Hx of hemorrhagic thalamic CVA Sep 2017, mild right sided weakness , electively admitted for surgery PMH , Hemmorhagic CVA, Asthma , HTN, CM, DM2, GERD, diabetic neuropathy, HLP surgery: Date of procedure: 09/06/18 Procedure: CABG x 3 VARGAS to LAD - good SVG to OM2 - good SVG to L PDA - good L EVH extubated after surgery temp 101 last pm , now resolved needs aggressive pulm toileting + rub, toradol added slowly re-add home diabetic meds weaned off insulin gtt 2800cc crystalloid , 750cc cell saver, 1500cc EBL pt transferred to stepdown Objective: Vital Signs - 24 hr 09/06/18 15:49 09/06/18 15:50 09/06/18 16:00 Temperature 99.5 F Pulse Rate 100 H Respiratory Rate 15 Blood Pressure 147/76 H Pulse Oximetry 95 96 94 L 09/06/18 17:20 09/06/18 17:47 09/06/18 17:51 Temperature 98.6 F Pulse Rate Respiratory Rate 16 17 Blood Pressure Pulse Oximetry 09/06/18 20:00 09/06/18 20:24 09/07/18 00:00 Temperature 99.7 F H 101.1 F H Pulse Rate 89 105 H Respiratory Rate 16 18 Blood Pressure 169/84 H 124/76 Pulse Oximetry 98 98 97 09/07/18 04:00 09/07/18 09:24 09/07/18 09:37 Temperature 101.0 F H Pulse Rate 106 H Respiratory Rate 18 16 Blood Pressure 130/72 Pulse Oximetry 97 96 09/07/18 12:00 09/07/18 13:06 09/07/18 14:00 Temperature 97.8 F Pulse Rate 98 H 91 H 78 Respiratory Rate 18 Blood Pressure 116/70 Pulse Oximetry 97 GENERAL: A&O x 3 SKIN: Warm and dry. Prevena dressing to chest , seema wrap to left leg HEAD: Normocephalic. EYES: No scleral icterus. No injection or drainage. NECK: Supple, trachea midline. No JVD or lymphadenopathy. CARDIOVASCULAR: Regular rate and rhythm without murmurs, gallops, + rubs. RESPIRATORY: Breath sounds equal bilaterally. No accessory muscle use. diminished in bases, chest tubes in place / drained 205cc/ 12 hr, no air leak GASTROINTESTINAL: Abdomen soft, non-tender, nondistended. MUSCULOSKELETAL: No cyanosis, or edema. BACK: Nontender without obvious deformity. No CVA tenderness. Labs: Laboratory Results - last 12 hr 09/07/18 09/07/18 09/07/18 03:35 03:35 03:36 WBC 13.0 H RBC 4.20 L Hgb 13.0 D Hct 38.7 L MCV 92.1 MCH 30.9 MCHC 33.6 RDW 13.8 Plt Count 154 MPV 8.3 Sodium 141 Potassium 3.9 Chloride 107 Carbon Dioxide 21.8 Anion Gap 12 BUN 20 H Creatinine 0.78 Estimated GFR Greater than 89 POC Glucose 104 Random Glucose 104 Calcium 8.1 L Magnesium 2.1 09/07/18 09/07/18 09/07/18 05:47 10:44 13:23 WBC RBC Hgb Hct MCV MCH MCHC RDW Plt Count MPV Sodium Potassium Chloride Carbon Dioxide Anion Gap BUN Creatinine Estimated GFR POC Glucose 95 166 H 149 H Random Glucose Calcium Magnesium Result Diagrams: 09/07/18 03:35 09/07/18 03:35 Telemetry: NSR - Plan (2) Diabetes CV: on BB , ASA , statin eval for diuresis in am TRA hose resume BP meds Resp : nebs , ezpap acapella leave chest tube in GI: PPI, Endo: resume home diabetic meds insulin SS , diabetic diet ID: ancef pot op monitor temps f/u labs in am (2) Diabetes Qualifiers: Diabetes mellitus complication detail: with unspecified neuropathy
--- NOTE | 2018-09-07 14:44 | P.DCO ---
- Diagnosis (1) CAD (coronary artery disease) Status: Acute (2) Angina pectoris Status: Acute (3) S/P CABG x 3 Status: Acute (4) Diabetes Status: Chronic (5) Hyperlipidemia Status: Chronic (6) Hypertension Status: Chronic (7) Asthma Status: Chronic - Home Health Nursing Order: Medical education, Signs/symptoms of disease process, Diabetic education , Wound care and dressing changes, Nursing assessment with vital signs Instructions: Heart and Vascular Surgery patients *Special attention to sternal dressing Mandatory frequency Assess and evaluation, 4 days in a row The next week 3X week 2 times a week for 4 weeks 1 time a week for 5 weeks Schedule Heart and Vascular patients for full 60 day certification period Initial visit Review Open Heart Surgery Discharge Instructions (Sternal precautions, Activity, Elastic hose, Incision care, Driving, Incentive spirometry, Smoking, [place], Work and other) Need Betadine to paint incision Medication reconciliation Importance of follow up care/ check on appointments Make calendar record temperature daily When to call [facility] at Home nurse, review instructions, phone list Incentive Spirometry, demonstration Visit 1- Begin discharge instruction for patient family and/ or caregiver using teach back method- Signs and symptoms of infection Disease characteristics Medicines and side effects Foods and nutrition/ appetite Infection control/ hand washing/ hygiene Visit 2- Continue teaching Discharge instructions- include additional information on smoking cessation , sternal dressing (sternal vac) Visit 3- Continue teaching- Cough and deep breathing, incision monitoring. Choose my plate Visit 4- Continue teaching- Discuss limitations Discuss how they are feeling Discuss progress toward goals Remaining visits- continue teaching and monitoring For any questions please call : Wednesday 8am-5pm Heart & Vascular Surgery Office ( Dr. Alberts & Dr. Oliva), After Hours / Nights (5pm -8am) Weekends and Holidays Please call [facility] ([facility]) Charge Nurse PREVENA Single Use Negative Wound Therapy System Caregiver Instruction Sheet 1. A Prevena dressing system was applied to the chest incision during surgery , to promote wound healing. It works via a suction device (negative pressure wound therapy) to remove low to moderate levels of exudate (drainage) and infectious materials. We recommend that the device stay in place for up to seven days, from day of surgery. 2. Day of Surgery___12// Day of Removal ____09/13/18 3. The dressing should only be removed by a health customer care representative. Please arrange removal of device to coincide with Home Health visit and or with Nursing staff at Rehab 4. If skin reddening or irritation of skin occurs, or excessive drainage, please notify the Cardiovascular Surgeons office at [phone]. 5. Light showering is permissible; however the pump should be disconnected and placed in safe location, where it will not get wet. The dressing should not be exposed to direct spray or submerged in water. No bath tub / shower only. Ensure the end of the tubing attached to the dressing is facing down so that water does not enter the top of the tube. 6. To remove Prevena dressing: press purple button to turn off device / remove the suction. Then disconnect the tubing from the pump. The fixation strips should be stretched away from the skin and the dressing lifted at one corner and peeled back until it has been fully removed. 7. After removal, it is ok to shower daily using liquid dial soap and clean wash cloth, rinse and pat dry, and leave incision open to air dry. For any concerns regarding Prevena dressing, and or wounds, please contact Christina Abbott, patient navigator at [phone] or notify the Cardiovascular Surgeons office at [phone]. Incentive spirometry Q1 hr x 10, while awake, also use acapella device hourly whole awake Sternal Breast Bone Precautions: NO pushing or pulling, ( pt must use sternal pillow to support chest with all activities and with coughing ( takes up to 3 months breast bone to heal ) Daily incision care: ok to shower daily, no tub bath. Wash all incisions with liquid dial soap, clean wash cloth to each site, rinse and pat dry. Observe for any signs of infection, such as drainage which is dark yellow, burgos, green or foul smelling. Immediately report to the surgeon any drainage from the chest incision, or legs, and for any abnormal drainage from the chest tube sites. Notify surgeon if any temp >101.5 degrees F. When specialty dressing removed/ or if you do not have one, continue to shower daily as above, then rinse and pat incision dry and paint with betadine daily x 5 days. Allow steri strips to fall off if you have any. Avoid lotions, creams, salves, oils, etc. for the first month Please see attached forms for additional instructions regarding post Open Heart specialty wound vacuum dressings. ALYSHA or Prevena , Dressing to be removed by Nursing staff on _09/13/[address] Oliva patients , please obtain CBC, BMP, PA & Lat CXR in 2 weeks, results to Dr. Oliva ( prescription will be given) ( ) (Tele: [phone]) , F/U appointment: as per DC instructions: PCP in 2 weeks, CV surgeon 2 weeks, Pocket Setter 3-4 weeks For any questions regarding incisions/ dressing / meds / post op care or above Symptoms, Wednesday 8am-5pm Heart & Vascular Surgery Office ( Dr. Alberts & Dr. Oliva), After Hours / Nights (5pm -8am) Weekends and Holidays Please call [facility] ([facility]) Charge Nurse - Case Management Consult Case Management Consult-Home Health: Yes - Certification I have seen patient Bony Chun on 09/07/18. My clinical findings support the need for the requested home health care services because: Deconditioned with increased weakness I certify that my clinical findings support that this patient is homebound because: Post-op weakness (4) Diabetes Qualifiers: Diabetes mellitus complication detail: with unspecified neuropathy
--- NOTE | 2018-09-07 15:32 | ECG ---
Date Performed: 09/07/2018 Time Performed: 04:32:50 PTAGE: 52 years EKG: Sinus tachycardia Inferior infarct - age undetermined Since the previous tracing, no signif icant change noted Abnormal ECG PREVIOUS TRACING : 09/05/2018 10.03 DOCTOR: Shant Wynne Interpretating Date/Time 09/07/2018 15:29:40
[2018-09-07] MEDS: Ketorolac Inj 30 MG/ML (IVP) Vial IV.PUSH PRN (18:45)
[2018-09-07] MEDS ORDERED: Lisinopril 10 MG Tablet PO SCH (21:00)
[2018-09-07] MEDS: Docusate Sodium 100 MG Capsule PO SCH (22:00)
[2018-09-08] MEDS: Ketorolac Inj 30 MG/ML (IVP) Vial IV.PUSH PRN (02:13)
[2018-09-08] MEDS: Insulin NovoLOG Aspart Correctional Sugar Inj SQ SCH ×5 (02:15→20:54)
[2018-09-08] MEDS: Amiodarone 200 MG Tablet PO SCH ×3 (05:19→21:15)
[2018-09-08 05:21] LABS: Baso # (Auto) 0.1 th/mm3 (0.0-0.2); Baso % (Auto) 0.5 % (0.0-2.0); Eos % (Auto) 0.2 % (0.0-4.0); Hematocrit 39.2 % (39.0-51.0); Hemoglobin 13.1 gm/dL (13.0-17.0); Lymph # (Auto) 1.9 th/mm3 (1.0-4.8); Mean Corpuscular HGB Conc 33.4 % (32.0-36.0); Mean Corpuscular Hemoglobin 30.9 pg (27.0-34.0); Mean Corpuscular Volume 92.6 fL (80.0-100.0); Mean Platelet Volume 8.4 fL (7.0-11.0); Mono # (Auto) 1.4 th/mm3 (0.0-0.9); Mono % (Auto) 11.7 % (0.0-8.0); Neut # (Auto) 8.6 th/mm3 (1.8-7.7); Neut % (Auto) 71.6 % (16.0-70.0); Platelet Count 157 th/mm3 (150-450); Red Blood Count 4.23 mil/mm3 (4.50-5.90)
[2018-09-08 05:54] LABS: Calcium 8.9 mg/dL (8.5-10.1); Carbon Dioxide 27.9 meq/L (21.0-32.0); Magnesium 2.5 mg/dL (1.5-2.5); Potassium 4.2 meq/L (3.5-5.1)
[2018-09-08] MEDS ORDERED: LINAGLIPTIN 5 MG PO SCH (09:00)
[2018-09-08] MEDS: Docusate Sodium 100 MG Capsule PO SCH ×2 (09:26→20:42)
[2018-09-08] MEDS: Multivitamin/Minerals Therapeutic Tablet PO SCH (09:26)
[2018-09-08] MEDS: Mupirocin 2% Nasal Oint Topical Syringe EACH NARE SCH ×2 (09:27→20:42)
[2018-09-08] MEDS: Gabapentin 300 MG Capsule PO SCH ×2 (09:27→20:41)
[2018-09-08] MEDS: Ezetimibe 10 MG Tablet PO SCH (09:27)
[2018-09-08] MEDS: Polyethylene Glycol 3350 17 GM Packet PO SCH (09:27)
[2018-09-08] MEDS: Metoprolol Tartrate 25 MG Tablet PO SCH ×2 (09:27→20:42)
[2018-09-08] MEDS: Glimepiride 2 MG Tablet PO SCH ×2 (10:20→21:15)
--- NOTE | 2018-09-08 16:08 | P.DIET ---
Nutritional Evaluation Type of nutrition evaluation: follow-up Nutrition [place] [facility] [place]: [place] [facility] [place] Education Subjective Subjective Comments: Patient request r/t diet questions via phone call received 09/08. Objective - Diagnosis CABG - Objective Dietitian Reviewed in Medical Record: Current diet, Medical history Diet Order: Cardiac 1800ADA 20g Fat Objective Comments: CABG 09/06/18 Assessment Assessment: Pt requested to speak to a dietitian about food choices pertaining to his current clinical status. Pt was discouraged about his new cardiac diet on top of his DM diet since he felt like he could not eat any "good" food anymore. Pt mentioned about his favorite foods, notably his homemade chilli and asked RD if he could still have it. RD recommended pt to eat leaner meats and low fat foods. Consult RD if any questions arise. Recommendations: Consult RD if any questions arise
--- NOTE | 2018-09-08 16:35 | P.PNCV ---
- Note Subjective/Hospital Course: 52yr , male [facility] in [facility] 08/09/[address] Oliva, HX of CAD, s/ p heart cath by Dr Neville with multivessel CAD EF 50% with inferior wall hypokinesis. Hx of hemorrhagic thalamic CVA Sep 2017, mild right sided weakness , electively admitted for surgery PMH , Hemmorhagic CVA, Asthma , HTN, CM, DM2, GERD, diabetic neuropathy, HLP surgery: Date of procedure: 09/06/18 Procedure: CABG x 3 VARGAS to LAD - good SVG to OM2 - good SVG to L PDA - good L EVH extubated after surgery 09/07 temp 101 last pm , now resolved needs aggressive pulm toileting + rub, toradol added slowly re-add home diabetic meds weaned off insulin gtt 2800cc crystalloid , 750cc cell saver, 1500cc EBL pt transferred to stepdown 09/08 pt doing well on room air chest tube dc without difficulty, remains in NSR continue insulin sliding scale / home diabetic meds increase BB , hold MICHELLE for now Objective: Vital Signs - 24 hr 09/07/18 17:00 09/07/18 18:00 09/07/18 19:00 Temperature 98.9 F Pulse Rate 91 H 94 H 95 H Respiratory Rate Blood Pressure 97/63 L Pulse Oximetry 93 L 09/07/18 19:15 09/07/18 19:40 09/07/18 19:58 Temperature Pulse Rate 79 Respiratory Rate 16 16 15 Blood Pressure Pulse Oximetry 90 L 09/07/18 20:00 09/07/18 21:00 09/07/18 22:00 Temperature 98.9 F Pulse Rate 94 H 102 H 100 H Respiratory Rate Blood Pressure 97/63 L Pulse Oximetry 93 L 09/07/18 23:00 09/08/18 00:00 09/08/18 01:00 Temperature 98.9 F Pulse Rate 95 H 100 H 94 H Respiratory Rate 16 Blood Pressure 133/75 Pulse Oximetry 94 L 09/08/18 02:00 09/08/18 02:43 09/08/18 02:44 Temperature Pulse Rate 100 H Respiratory Rate 16 16 Blood Pressure Pulse Oximetry 09/08/18 03:00 09/08/18 04:00 09/08/18 04:49 Temperature 99.4 F Pulse Rate 92 H 99 H 92 H Respiratory Rate 16 Blood Pressure 103/56 L Pulse Oximetry 93 L 09/08/18 06:00 09/08/18 07:00 09/08/18 08:00 Temperature 97.5 F L Pulse Rate 93 H 86 89 Respiratory Rate 18 16 Blood Pressure 102/65 Pulse Oximetry 95 96 09/08/18 09:00 09/08/18 09:25 09/08/18 10:00 Temperature Pulse Rate 85 80 Respiratory Rate 17 Blood Pressure Pulse Oximetry 09/08/18 11:00 09/08/18 11:47 09/08/18 13:00 Temperature 97.8 F Pulse Rate 90 81 80 Respiratory Rate 17 Blood Pressure 120/60 Pulse Oximetry 95 09/08/18 13:14 09/08/18 14:13 09/08/18 14:24 Temperature Pulse Rate 85 93 H Respiratory Rate 18 Blood Pressure Pulse Oximetry 92 L 09/08/18 14:25 09/08/18 15:00 09/08/18 15:27 Temperature 98.8 F Pulse Rate 104 H 104 H Respiratory Rate 17 20 Blood Pressure 125/58 L Pulse Oximetry 95 GENERAL: A&O x 3 SKIN: Warm and dry. prevena dressing to chest , incision intact to left leg HEAD: Normocephalic. EYES: No scleral icterus. No injection or drainage. NECK: Supple, trachea midline. No JVD or lymphadenopathy. CARDIOVASCULAR: Regular rate and rhythm without murmurs, gallops, or rubs. RESPIRATORY: Breath sounds equal bilaterally. No accessory muscle use. slightly diminished in bases GASTROINTESTINAL: Abdomen soft, non-tender, nondistended. MUSCULOSKELETAL: No cyanosis, or edema. BACK: Nontender without obvious deformity. No CVA tenderness. Labs: Laboratory Results - last 12 hr 09/06/18 09/08/18 09/08/18 06:35 04:30 04:30 WBC 12.0 H RBC 4.23 L Hgb 13.1 Hct 39.2 MCV 92.6 MCH 30.9 MCHC 33.4 RDW 14.0 Plt Count 157 MPV 8.4 Neut % (Auto) 71.6 H Lymph % (Auto) 16.0 Quay % (Auto) 11.7 H Eos % (Auto) 0.2 Baso % (Auto) 0.5 Neut # (Auto) 8.6 H Lymph # (Auto) 1.9 Quay # (Auto) 1.4 H Eos # (Auto) 0.0 Baso # (Auto) 0.1 WBC Differential . Differential Comment Auto diff final Sodium 138 Potassium 4.2 Chloride 104 Carbon Dioxide 27.9 Anion Gap 6 BUN 33 H Creatinine 1.20 Estimated GFR 63 L POC Glucose Random Glucose 132 H Calcium 8.9 D Magnesium 2.5 MTS Gel Crossmatch See Detail 09/08/18 09/08/18 05:25 10:59 WBC RBC Hgb Hct MCV MCH MCHC RDW Plt Count MPV Neut % (Auto) Lymph % (Auto) Quay % (Auto) Eos % (Auto) Baso % (Auto) Neut # (Auto) Lymph # (Auto) Quay # (Auto) Eos # (Auto) Baso # (Auto) WBC Differential Differential Comment Sodium Potassium Chloride Carbon Dioxide Anion Gap BUN Creatinine Estimated GFR POC Glucose 149 H 174 H Random Glucose Calcium Magnesium MTS Gel Crossmatch Result Diagrams: 09/08/18 04:30 09/08/18 04:30 Telemetry: NSR - Plan (1) CAD (coronary artery disease) (4) Diabetes (5) Hyperlipidemia (6) Hypertension (7) Asthma CV: increase BB , ASA , statin gentle diuresis TRA hose Resp : nebs , ezpap acapella chest tube removed f/u CXR in am GI: PPI, Endo: resume home diabetic meds insulin SS , diabetic diet ID: ancef post op monitor temps (1) CAD (coronary artery disease) Qualifiers: Coronary Disease-Associated Artery/Lesion type: viejas artery (4) Diabetes Qualifiers: Diabetes mellitus type: type 2 Diabetes mellitus complication detail: with unspecified neuropathy (5) Hyperlipidemia Qualifiers: Hyperlipidemia type: mixed hyperlipidemia Qualified Code(s): E78.2 - Mixed hyperlipidemia (6) Hypertension Qualifiers: Hypertension type: essential hypertension Qualified Code(s): I10 - Essential (primary) hypertension (7) Asthma Qualifiers: Asthma severity: moderate
--- NOTE | 2018-09-08 17:26 | ECG ---
Date Performed: 09/07/2018 Time Performed: 17:54:02 PTAGE: 52 years EKG: Sinus rhythm Diffuse slight ST elevation, which may be pericarditis versus normal variant Abnormal ECG Compared t o PREVIOUS TRACING , the slight ST elevation is new. This may be a post-op finding from car diovascular surgery. Clinical correlation recommended. PREVIOUS TRACIN09/07/2018 04.32.50 DOCTOR: Shyam Simmons Interpretating Date/Time 09/08/2018 17:24:47
[2018-09-08] MEDS ORDERED: Vancomycin Inj 1,000 MG in Sodium Chlor 0.9% Inj 250 ML IV.SIG STA (21:58)
[2018-09-08] MEDS ORDERED: Metoprolol Tartrate 25 MG Tablet PO ONE (22:00)
[2018-09-08] MEDS ORDERED: Acetaminophen 325 MG Tablet PO PRN (23:48)
[2018-09-09] MEDS: Insulin NovoLOG Aspart Correctional Sugar Inj SQ SCH ×5 (01:42→20:58)
--- NOTE | 2018-09-09 04:17 | XR ---
EXAM DATE: 09/09/2018 3:44 AM EST AGE/SEX: 52 years / Male INDICATIONS: Please rule out pneumothorax, post chest tube removal. CLINICAL DATA: This is the patient's subsequent encounter. Patient reports that signs and symptoms h ave been present for 4 - 6 days and indicates a pain score of 4/10. MEDICAL/SURGICAL HISTORY: . Diabetes mellitus type II. Myocardial infarction. Hypertension. Ast hma. Cardiomyopathy. Stroke. . Tonsillectomy. Inguinal hernia repair. CABG. COMPARISON: [facility] [place], CHEST 1V SINGLE AP, 09/07/2018. . FINDINGS: A single AP view of the chest demonstrates the lungs to be symmetrically aerated without evidence of mass, infiltrate or effusion. The cardiomediastinal contours are unremarkable. Osseous structures a re intact. Left-sided chest tube has been removed. I don't see any evidence of a pneumothorax. CONCLUSION: Median sternotomy wires. Removal left chest without evidence of pneumothorax Electronically signed by: Tay Ortega MD Board Certified Radiologist 09/09/2018 4:15 AM EST
[2018-09-09] MEDS: Amiodarone 200 MG Tablet PO SCH ×3 (06:19→22:37)
[2018-09-09] MEDS: Polyethylene Glycol 3350 17 GM Packet PO SCH (09:40)
[2018-09-09] MEDS: Gabapentin 300 MG Capsule PO SCH ×2 (09:41→20:56)
[2018-09-09] MEDS: Docusate Sodium 100 MG Capsule PO SCH ×2 (09:42→20:57)
[2018-09-09] MEDS: Glimepiride 2 MG Tablet PO SCH ×2 (09:43→20:56)
[2018-09-09] MEDS: Mupirocin 2% Nasal Oint Topical Syringe EACH NARE SCH ×2 (09:43→20:57)
[2018-09-09] MEDS: Ezetimibe 10 MG Tablet PO SCH (09:44)
[2018-09-09] MEDS: Metoprolol Tartrate 25 MG Tablet PO SCH ×2 (09:44→20:56)
[2018-09-09] MEDS: Multivitamin/Minerals Therapeutic Tablet PO SCH (09:44)
[2018-09-09 10:44] LABS: Baso % (Auto) 0.3 % (0.0-2.0); Eos % (Auto) 0.3 % (0.0-4.0); Hematocrit 38.4 % (39.0-51.0); Hemoglobin 13.3 gm/dL (13.0-17.0); Lymph # (Auto) 1.3 th/mm3 (1.0-4.8); Mean Corpuscular HGB Conc 34.6 % (32.0-36.0); Mean Corpuscular Hemoglobin 32.4 pg (27.0-34.0); Mean Corpuscular Volume 93.6 fL (80.0-100.0); Mono % (Auto) 11.1 % (0.0-8.0); Neut # (Auto) 6.8 th/mm3 (1.8-7.7); Neut % (Auto) 74.3 % (16.0-70.0); Platelet Count 157 th/mm3 (150-450); Red Cell Distribution Width 13.4 % (11.6-17.2); White Blood Count 9.2 th/mm3 (4.0-11.0)
[2018-09-09 11:02] LABS: Alanine Aminotransferase 23 U/L (12-78); Albumin 3.3 g/dL (3.4-5.0); Anion Gap 9 meq/L (5-15); Aspartate Aminotransferase 23 U/L (15-37); Blood Urea Nitrogen 28 mg/dL (7-18); Calcium 8.5 mg/dL (8.5-10.1); Carbon Dioxide 27.2 meq/L (21.0-32.0); Chloride 103 meq/L (98-107); Glomerular Filtration Rate 79 mL/min (>89); Glucose,Random 207 mg/dL (74-106); Potassium 4.1 meq/L (3.5-5.1); Sodium 139 meq/L (136-145)
[2018-09-09 11:04] LABS: Alkaline Phosphatase 65 U/L (45-117); Total Protein 6.9 g/dL (6.4-8.2)
[2018-09-09 13:14] LABS: Bilirubin,Urine Negative (Negative); Clarity,Urine Clear (Clear); Color,Urine Yellow (Yellw/Straw); Glucose,Urine (UA) 500 or Greater mg/dL (Negative); Leukocyte Esterase,Urine Negative (Negative); Nitrite,Urine Negative (Negative); Specific Gravity,Urine 1.031 (1.002-1.035)
--- NOTE | 2018-09-09 15:03 | P.PNCV ---
- Note Subjective/Hospital Course: 52yr , male seen initially in the [facility] office 08/09/[address] Oliva, HX of CAD, s/ p heart cath by Dr Neville with multivessel CAD EF 50% with inferior wall hypokinesis. Hx of hemorrhagic thalamic CVA Sep 2017, mild right sided weakness , electively admitted for surgery PMH , Hemmorhagic CVA, Asthma , HTN, CM, DM2, GERD, diabetic neuropathy, HLP surgery: Date of procedure: 09/06/18 Procedure: CABG x 3 VARGAS to LAD - good SVG to OM2 - good SVG to L PDA - good L EVH extubated after surgery 09/07 temp 101 last pm , now resolved needs aggressive pulm toileting + rub, toradol added slowly re-add home diabetic meds weaned off insulin gtt 2800cc crystalloid , 750cc cell saver, 1500cc EBL pt transferred to stepdown 09/08 pt doing well on room air chest tube dc without difficulty, remains in NSR continue insulin sliding scale / home diabetic meds increase BB , hold MICHELLE for now 09/09 pt had temp last pm 102.8 blood cultures neg x 24 hours CVC line dc yesterday UA neg CXR with some atelectasis / nebs re-ordered with EZpap / acapella no erythema around prevena / no redness to EVH site + 1 lower ext edema , gentle diuresis Objective: Vital Signs - 24 hr 09/08/18 15:00 09/08/18 15:27 09/08/18 18:00 Temperature 98.8 F Pulse Rate 104 H 104 H 99 H Respiratory Rate 20 Blood Pressure 125/58 L Pulse Oximetry 95 09/08/18 19:00 09/08/18 19:58 09/08/18 20:00 Temperature 100.6 F H Pulse Rate 124 H 112 H Respiratory Rate 18 Blood Pressure 185/83 H Pulse Oximetry 95 97 95 09/08/18 21:00 09/08/18 21:40 09/08/18 22:00 Temperature Pulse Rate 124 H 126 H Respiratory Rate 16 Blood Pressure Pulse Oximetry 09/08/18 23:00 09/09/18 00:00 09/09/18 00:30 Temperature 102.4 F H Pulse Rate 116 H 104 H 96 H Respiratory Rate 20 Blood Pressure 150/74 H Pulse Oximetry 90 L 09/09/18 01:00 09/09/18 01:30 09/09/18 02:00 Temperature 100.3 F H Pulse Rate 90 122 H 88 Respiratory Rate 16 Blood Pressure 123/62 Pulse Oximetry 09/09/18 03:00 09/09/18 04:00 09/09/18 05:00 Temperature 99.1 F Pulse Rate 85 84 84 Respiratory Rate 16 Blood Pressure 102/61 Pulse Oximetry 95 09/09/18 05:59 09/09/18 07:00 09/09/18 07:50 Temperature 100.2 F H Pulse Rate 88 104 H 95 H Respiratory Rate 20 16 Blood Pressure 147/69 H Pulse Oximetry 95 94 L 09/09/18 08:00 09/09/18 09:00 09/09/18 10:00 Temperature Pulse Rate 96 H 102 H 92 H Respiratory Rate Blood Pressure Pulse Oximetry 95 09/09/18 11:00 09/09/18 12:00 Temperature 99.6 F Pulse Rate 76 80 Respiratory Rate 20 Blood Pressure 119/70 Pulse Oximetry 96 GENERAL: A&O x 3 SKIN: Warm and dry. prevena dressing to chest , incision intact to left leg HEAD: Normocephalic. EYES: No scleral icterus. No injection or drainage. NECK: Supple, trachea midline. No JVD or lymphadenopathy. CARDIOVASCULAR: Regular rate and rhythm without murmurs, gallops, or rubs. + 1 lower ext edema RESPIRATORY: Breath sounds equal bilaterally. No accessory muscle use. diminished in bases , faint crackles , GASTROINTESTINAL: Abdomen soft, non-tender, nondistended. MUSCULOSKELETAL: No cyanosis, or edema. BACK: Nontender without obvious deformity. No CVA tenderness. Labs: Laboratory Results - last 12 hr 09/09/18 09/09/18 09/09/18 08:02 09:52 09:52 WBC 9.2 RBC 4.10 L Hgb 13.3 Hct 38.4 L MCV 93.6 MCH 32.4 MCHC 34.6 RDW 13.4 Plt Count 157 MPV 9.0 Neut % (Auto) 74.3 H Lymph % (Auto) 14.0 [place] % (Auto) 11.1 H Eos % (Auto) 0.3 Baso % (Auto) 0.3 Neut # (Auto) 6.8 Lymph # (Auto) 1.3 [place] # (Auto) 1.0 H Eos # (Auto) 0.0 Baso # (Auto) 0.0 WBC Differential . Differential Comment Auto diff final Sodium 139 Potassium 4.1 Chloride 103 Carbon Dioxide 27.2 Anion Gap 9 BUN 28 H Creatinine 0.99 Estimated GFR 79 L POC Glucose 109 Random Glucose 207 H Calcium 8.5 Total Bilirubin 0.7 AST 23 ALT 23 Alkaline Phosphatase 65 Total Protein 6.9 Albumin 3.3 L Urine Color Urine Clarity Urine pH Ur Specific [place] Urine Protein Urine Glucose (UA) Urine Ketones Urine Occult Blood Urine Nitrate Urine Bilirubin Urine Urobilinogen Ur Leukocyte Esterase Urine RBC Urine WBC Micro UA Comment Ur Microscopic Review Urine Culture Comments 09/09/18 09/09/18 12:05 12:30 WBC RBC Hgb Hct MCV MCH MCHC RDW Plt Count MPV Neut % (Auto) Lymph % (Auto) [place] % (Auto) Eos % (Auto) Baso % (Auto) Neut # (Auto) Lymph # (Auto) [place] # (Auto) Eos # (Auto) Baso # (Auto) WBC Differential Differential Comment Sodium Potassium Chloride Carbon Dioxide Anion Gap BUN Creatinine Estimated GFR POC Glucose 192 H Random Glucose Calcium Total Bilirubin AST ALT Alkaline Phosphatase Total Protein Albumin Urine Color Yellow Urine Clarity Clear Urine pH 5.0 Ur Specific [place] 1.031 Urine Protein Negative Urine Glucose (UA) 500 or greater Urine Ketones 20 Urine Occult Blood Small H Urine Nitrate Negative Urine Bilirubin Negative Urine Urobilinogen Less than 2 Ur Leukocyte Esterase Negative Urine RBC 4 H Urine WBC 1 Micro UA Comment Culture not ind Ur Microscopic Review Not Reportable Urine Culture Comments Culture not ind Result Diagrams: 09/09/18 09:52 09/09/18 09:52 - Plan (1) CAD (coronary artery disease) (3) S/P CABG x 3 Plan: ASA, statin , BB OOB , ambulate aggressive pulm toileting (4) Diabetes Plan: insulin sliding scale home po meds diabetic diet (5) Hyperlipidemia Plan: on statin (6) Hypertension (7) Asthma Plan: nebs (8) Fever and chills Plan: no source noted at this time fever improved needs aggressive pulm toileting (1) CAD (coronary artery disease) Qualifiers: Coronary Disease-Associated Artery/Lesion type: [place] artery (4) Diabetes Qualifiers: Diabetes mellitus type: type 2 Diabetes mellitus complication detail: with unspecified neuropathy (5) Hyperlipidemia Qualifiers: Hyperlipidemia type: mixed hyperlipidemia Qualified Code(s): E78.2 - Mixed hyperlipidemia (6) Hypertension Qualifiers: Hypertension type: essential hypertension Qualified Code(s): I10 - Essential (primary) hypertension (7) Asthma Qualifiers: Asthma severity: moderate
[2018-09-10 05:37] LABS: Baso % (Auto) 0.5 % (0.0-2.0); Eos # (Auto) 0.1 th/mm3 (0.0-0.4); Eos % (Auto) 1.6 % (0.0-4.0); Hematocrit 38.1 % (39.0-51.0); Lymph % (Auto) 29.5 % (9.0-44.0); Mean Corpuscular HGB Conc 34.3 % (32.0-36.0); Mean Corpuscular Hemoglobin 31.9 pg (27.0-34.0); Mean Corpuscular Volume 93.2 fL (80.0-100.0); Mean Platelet Volume 8.6 fL (7.0-11.0); Mono # (Auto) 0.8 th/mm3 (0.0-0.9); Mono % (Auto) 12.3 % (0.0-8.0); Neut # (Auto) 3.8 th/mm3 (1.8-7.7); Neut % (Auto) 56.1 % (16.0-70.0); Platelet Count 162 th/mm3 (150-450); Red Blood Count 4.09 mil/mm3 (4.50-5.90); Red Cell Distribution Width 13.6 % (11.6-17.2); White Blood Count 6.7 th/mm3 (4.0-11.0)
[2018-09-10 06:02] LABS: Calcium 8.5 mg/dL (8.5-10.1); Carbon Dioxide 30.8 meq/L (21.0-32.0); Potassium 4.2 meq/L (3.5-5.1)
[2018-09-10] MEDS: Amiodarone 200 MG Tablet PO SCH ×2 (06:03→13:41)
[2018-09-10] MEDS: Insulin NovoLOG Aspart Correctional Sugar Inj SQ SCH ×2 (08:02→12:16)
[2018-09-10] MEDS: Multivitamin/Minerals Therapeutic Tablet PO SCH (08:47)
[2018-09-10] MEDS: Metoprolol Tartrate 25 MG Tablet PO SCH (08:47)
[2018-09-10] MEDS: Glimepiride 2 MG Tablet PO SCH (08:48)
[2018-09-10] MEDS: Gabapentin 300 MG Capsule PO SCH (08:48)
[2018-09-10] MEDS: Ezetimibe 10 MG Tablet PO SCH (08:49)
[2018-09-10] MEDS: Docusate Sodium 100 MG Capsule PO SCH (08:49)
[2018-09-10] MEDS: Polyethylene Glycol 3350 17 GM Packet PO SCH (08:50)
[2018-09-10 09:37] VITALS: RESP 18
--- NOTE | 2018-09-10 12:48 | P.PNCV ---
- Note Subjective/Hospital Course: 52yr , male seen initially in [facility] 08/09/[address] Oliva, HX of CAD, s/ p heart cath by Dr Neville with multivessel CAD EF 50% with inferior wall hypokinesis. Hx of hemorrhagic thalamic CVA Sep 2017, mild right sided weakness , electively admitted for surgery PMH , Hemmorhagic CVA, Asthma , HTN, CM, DM2, GERD, diabetic neuropathy, HLP surgery: Date of procedure: 09/06/18 Procedure: CABG x 3 VARGAS to LAD - good SVG to OM2 - good SVG to L PDA - good L EVH extubated after surgery 09/07 temp 101 last pm , now resolved needs aggressive pulm toileting + rub, toradol added slowly re-add home diabetic meds weaned off insulin gtt 2800cc crystalloid , 750cc cell saver, 1500cc EBL pt transferred to stepdown 09/08 pt doing well on room air chest tube dc without difficulty, remains in NSR continue insulin sliding scale / home diabetic meds increase BB , hold MICHELLE for now 09/09 pt had temp last pm 102.8 blood cultures neg x 24 hours CVC line dc yesterday UA neg CXR with some atelectasis / nebs re-ordered with EZpap / acapella no erythema around prevena / no redness to EVH site + 1 lower ext edema , gentle diuresis 09/10 Clinically stable Afebrile Okay to discharge home Objective: Vital Signs - 24 hr 09/09/18 13:00 09/09/18 14:00 09/09/18 15:00 Temperature 99.8 F H Pulse Rate 84 86 86 Respiratory Rate 20 Blood Pressure 118/65 Pulse Oximetry 96 09/09/18 16:00 09/09/18 17:00 09/09/18 18:00 Temperature Pulse Rate 88 98 H 94 H Respiratory Rate Blood Pressure Pulse Oximetry 09/09/18 19:00 09/09/18 20:00 09/09/18 21:00 Temperature 100.2 F H Pulse Rate 90 86 96 H Respiratory Rate 16 Blood Pressure 155/78 H Pulse Oximetry 95 98 09/09/18 22:00 09/09/18 23:00 09/10/18 00:00 Temperature 99.7 F H Pulse Rate 100 H 98 H 80 Respiratory Rate 16 Blood Pressure 130/62 Pulse Oximetry 96 09/10/18 01:00 09/10/18 02:00 09/10/18 03:00 Temperature 98.8 F Pulse Rate 78 78 80 Respiratory Rate 16 Blood Pressure 134/76 Pulse Oximetry 94 L 09/10/18 04:00 09/10/18 05:00 09/10/18 06:00 Temperature Pulse Rate 76 76 78 Respiratory Rate Blood Pressure Pulse Oximetry 09/10/18 07:00 09/10/18 08:00 09/10/18 09:00 Temperature 98.5 F Pulse Rate 79 80 79 Respiratory Rate 18 Blood Pressure 130/68 Pulse Oximetry 95 97 09/10/18 09:39 09/10/18 10:00 09/10/18 11:00 Temperature 98.6 F Pulse Rate 74 71 Respiratory Rate 18 Blood Pressure 132/64 Pulse Oximetry 97 95 Labs: Laboratory Results - last 12 hr 09/10/18 09/10/18 09/10/18 05:16 05:16 11:52 WBC 6.7 RBC 4.09 L Hgb 13.0 Hct 38.1 L MCV 93.2 MCH 31.9 MCHC 34.3 RDW 13.6 Plt Count 162 MPV 8.6 Neut % (Auto) 56.1 Lymph % (Auto) 29.5 [place] % (Auto) 12.3 H Eos % (Auto) 1.6 Baso % (Auto) 0.5 Neut # (Auto) 3.8 Lymph # (Auto) 2.0 [place] # (Auto) 0.8 Eos # (Auto) 0.1 Baso # (Auto) 0.0 WBC Differential . Differential Comment Auto diff final Sodium 139 Potassium 4.2 Chloride 101 Carbon Dioxide 30.8 Anion Gap 7 BUN 29 H Creatinine 1.01 Estimated GFR 77 L POC Glucose 134 H Random Glucose 109 H Calcium 8.5 Result Diagrams: 09/10/18 05:16 09/10/18 05:16 - Plan (1) CAD (coronary artery disease) (3) S/P CABG x 3 Plan: ASA, statin , BB OOB , ambulate aggressive pulm toileting (4) Diabetes Plan: insulin sliding scale home po meds diabetic diet (5) Hyperlipidemia Plan: on statin (6) Hypertension (7) Asthma Plan: nebs (8) Fever and chills Plan: no source noted at this time fever improved needs aggressive pulm toileting (1) CAD (coronary artery disease) Qualifiers: Coronary Disease-Associated Artery/Lesion type: [place] artery (4) Diabetes Qualifiers: Diabetes mellitus type: type 2 Diabetes mellitus complication detail: with unspecified neuropathy (5) Hyperlipidemia Qualifiers: Hyperlipidemia type: mixed hyperlipidemia Qualified Code(s): E78.2 - Mixed hyperlipidemia (6) Hypertension Qualifiers: Hypertension type: essential hypertension Qualified Code(s): I10 - Essential (primary) hypertension (7) Asthma Qualifiers: Asthma severity: moderate
--- NOTE | 2018-09-10 12:51 | P.DS ---
Date of admission: 09/06/18 05:35 Primary care physician: Pamela Landeros MD Brief History from admission: 52yr , male seen initially in the office 08/09/[address] Oliva, HX of CAD, s/ p heart cath by Dr Neville with multivessel CAD EF 50% with inferior wall hypokinesis. Hx of hemorrhagic thalamic CVA Sep 2017, mild right sided weakness , electively admitted for surgery PMH , Hemmorhagic CVA, Asthma , HTN, CM, DM2, GERD, diabetic neuropathy, HLP DS: Diagnosis - Discharge Diagnosis (1) CAD (coronary artery disease) Status: Acute (2) Angina pectoris Status: Acute (3) S/P CABG x 3 Status: Acute (4) Diabetes Status: Chronic (5) Hyperlipidemia Status: Chronic (6) Hypertension Status: Chronic (7) Asthma Status: Chronic (8) Fever and chills Status: Acute DS: Medications - Discharge Medications Prescriptions: amiodarone 200 mg PO Q12HR #28 tab docusate sodium [DOK] 100 mg PO BID #30 cap lisinopril 10 mg PO BID #60 tab metoprolol tartrate 50 mg PO BID #60 tab iaclgvar-iwpd-TA-calcium-mins [Thera M Plus (ferrous fumarat)] 1 tab PO DAILY # 30 tab oxycodone-acetaminophen 1 tab PO Q4H PRN #40 tab PRN Reason: Pain Scale 1 To 5 DS: Summary Hospital Course: 52yr , male seen initially in the office 08/09/[address] Oliva, HX of CAD, s/ p heart cath by Dr Neville with multivessel CAD EF 50% with inferior wall hypokinesis. Hx of hemorrhagic thalamic CVA Sep 2017, mild right sided weakness , electively admitted for surgery PMH , Hemmorhagic CVA, Asthma , HTN, CM, DM2, GERD, diabetic neuropathy, HLP surgery: Date of procedure: 09/06/18 Procedure: CABG x 3 VARGAS to LAD - good SVG to OM2 - good SVG to L PDA - good L EVH extubated after surgery 09/07 temp 101 last pm , now resolved needs aggressive pulm toileting + rub, toradol added slowly re-add home diabetic meds weaned off insulin gtt 2800cc crystalloid , 750cc cell saver, 1500cc EBL pt transferred to stepdown 09/08 pt doing well on room air chest tube dc without difficulty, remains in NSR continue insulin sliding scale / home diabetic meds increase BB , hold MICHELLE for now 09/09 pt had temp last pm 102.8 blood cultures neg x 24 hours CVC line dc yesterday UA neg CXR with some atelectasis / nebs re-ordered with EZpap / acapella no erythema around prevena / no redness to EVH site + 1 lower ext edema , gentle diuresis 09/10 Clinically stable Afebrile Okay to discharge home - Time Spent with Patient Total time spent providing and/or coordinating discharge services: Less than 30 minutes - Quality: VTE Deep Vein Thrombosis/Pulmonary Embolism Present on Admission: No Exam Vital signs: Vital Signs 09/09/18 13:00 09/09/18 14:00 09/09/18 15:00 Temperature 99.8 F H Pulse Rate 84 86 86 Respiratory Rate 20 Blood Pressure 118/65 Pulse Oximetry 96 09/09/18 16:00 09/09/18 17:00 09/09/18 18:00 Temperature Pulse Rate 88 98 H 94 H Respiratory Rate Blood Pressure Pulse Oximetry 09/09/18 19:00 09/09/18 20:00 09/09/18 21:00 Temperature 100.2 F H Pulse Rate 90 86 96 H Respiratory Rate 16 Blood Pressure 155/78 H Pulse Oximetry 95 98 09/09/18 22:00 09/09/18 23:00 09/10/18 00:00 Temperature 99.7 F H Pulse Rate 100 H 98 H 80 Respiratory Rate 16 Blood Pressure 130/62 Pulse Oximetry 96 09/10/18 01:00 09/10/18 02:00 09/10/18 03:00 Temperature 98.8 F Pulse Rate 78 78 80 Respiratory Rate 16 Blood Pressure 134/76 Pulse Oximetry 94 L 09/10/18 04:00 09/10/18 05:00 09/10/18 06:00 Temperature Pulse Rate 76 76 78 Respiratory Rate Blood Pressure Pulse Oximetry 09/10/18 07:00 09/10/18 08:00 09/10/18 09:00 Temperature 98.5 F Pulse Rate 79 80 79 Respiratory Rate 18 Blood Pressure 130/68 Pulse Oximetry 95 97 09/10/18 09:39 09/10/18 10:00 09/10/18 11:00 Temperature 98.6 F Pulse Rate 74 71 Respiratory Rate 18 Blood Pressure 132/64 Pulse Oximetry 97 95 Intake & Output 09/09/18 09/10/18 09/10/18 18:59 06:59 18:59 Intake Total 900 / 900 480 / 480 Output Total 1625 / 1625 750 / 750 Balance -725 / -725 -270 / -270 Weight 96 kg Intake: Oral 900 / 900 480 / 480 Output: Urine 1625 / 1625 750 / 750 Other: Date of Last Bowel Movement 09/08/18 09/10/18 Results Procedures completed during hospitalization: Date of procedure: 09/06/18 Procedure: CABG x 3 VARGAS to LAD - good SVG to OM2 - good SVG to L PDA - good L EVH Labs on day of discharge: Labs from last 24 hours 09/10/18 09/10/18 09/10/18 11:52 05:16 05:16 WBC 6.7 RBC 4.09 L Hgb 13.0 Hct 38.1 L MCV 93.2 MCH 31.9 MCHC 34.3 RDW 13.6 Plt Count 162 MPV 8.6 Neut % (Auto) 56.1 Lymph % (Auto) 29.5 [place] % (Auto) 12.3 H Eos % (Auto) 1.6 Baso % (Auto) 0.5 Neut # (Auto) 3.8 Lymph # (Auto) 2.0 [place] # (Auto) 0.8 Eos # (Auto) 0.1 Baso # (Auto) 0.0 WBC Differential . Differential Comment Auto diff final Sodium 139 Potassium 4.2 Chloride 101 Carbon Dioxide 30.8 Anion Gap 7 BUN 29 H Creatinine 1.01 Estimated GFR 77 L POC Glucose 134 H Random Glucose 109 H Calcium 8.5 Urine Color Urine Clarity Urine pH Ur Specific [place] Urine Protein Urine Glucose (UA) Urine Ketones Urine Occult Blood Urine Nitrate Urine Bilirubin Urine Urobilinogen Ur Leukocyte Esterase Urine RBC Urine WBC Micro UA Comment Ur Microscopic Review Urine Culture Comments 09/09/18 09/09/18 09/09/18 20:54 16:55 12:30 WBC RBC Hgb Hct MCV MCH MCHC RDW Plt Count MPV Neut % (Auto) Lymph % (Auto) [place] % (Auto) Eos % (Auto) Baso % (Auto) Neut # (Auto) Lymph # (Auto) [place] # (Auto) Eos # (Auto) Baso # (Auto) WBC Differential Differential Comment Sodium Potassium Chloride Carbon Dioxide Anion Gap BUN Creatinine Estimated GFR POC Glucose 106 133 H Random Glucose Calcium Urine Color Yellow Urine Clarity Clear Urine pH 5.0 Ur Specific [place] 1.031 Urine Protein Negative Urine Glucose (UA) 500 or greater Urine Ketones 20 Urine Occult Blood Small H Urine Nitrate Negative Urine Bilirubin Negative Urine Urobilinogen Less than 2 Ur Leukocyte Esterase Negative Urine RBC 4 H Urine WBC 1 Micro UA Comment Culture not ind Ur Microscopic Review Not Reportable Urine Culture Comments Culture not ind Preliminary micro results at discharge 09/08/18 22:45 Aerobic Blood Culture - Preliminary Blood - Peripheral No growth in 1 day 09/08/18 22:49 Aerobic Blood Culture - Preliminary Blood - Peripheral No growth in 2 days - Impressions ITS Impressions Chest X-Ray 09/09/18 06:00 CONCLUSION: Median sternotomy wires. Removal left chest without evidence of pneumothorax Discharge Plan - Discharge Disposition Patient Disposition: /Home Health Service - Discharge Condition Condition: Good - Discharge Order Discharge Orders: Discharge Order (Routine); Ordered 09/10/18 Ordered By: Arya Alberts - Physicians Team Primary Care Provider: Pamela Landeros Attending Provider: Agnes Oliva Other Providers: Kvng Neville MD ; Frederick Ward MD - Rxs /Orders / Referrals /Forms Prescriptions: New amiodarone 200 mg Tablet 200 mg PO Q12HR Qty: 28 RF: 0 docusate sodium [DOK] 100 mg Capsule 100 mg PO BID Qty: 30 RF: 0 lisinopril 10 mg Tablet 10 mg PO BID Qty: 60 RF: 2 metoprolol tartrate 25 mg Tablet 50 mg PO BID Qty: 60 RF: 2 kwdxwips-xjak-QN-calcium-mins [Thera M Plus (ferrous fumarat)] 9 mg iron-400 mcg Tablet 1 tab PO DAILY Qty: 30 RF: 2 oxycodone-acetaminophen 5-325 mg Tablet 1 tab PO Q4H PRN (Reason: Pain Scale 1 To 5) Qty: 40 RF: 0 Continue aspirin [Adult Low Dose Aspirin] 81 mg Tablet,Delayed Release (Dr/Ec) 81 mg PO DAILY atorvastatin 40 mg Tablet 40 mg PO DAILY cholecalciferol (vitamin D3) [Vitamin D3] 4,000 unit Capsule 4,000 unit PO DAILY cyanocobalamin (vitamin B-12) [Vitamin B-12] 2,500 mcg Tablet, Sublingual 2,500 mcg SUBLINGUAL WEEKLY empagliflozin [Jardiance] 25 mg Tablet 25 mg PO DAILY ezetimibe 10 mg Tablet 10 mg PO DAILY gabapentin 600 mg Tablet 600 mg PO BID glimepiride 2 mg Tablet 2 mg PO BID linagliptin [Tradjenta] 5 mg Tablet 5 mg PO DAILY metformin 1,000 mg Tablet 1,000 mg PO BID pioglitazone 30 mg Tablet 30 mg PO DAILY Discontinued acetaminophen [Acetaminophen Extra Strength] 500 mg Tablet 1,000 mg PO BID PRN (Reason: Pain) amlodipine 5 mg Tablet 5 mg PO DAILY lisinopril 20 mg Tablet 20 mg PO BID metoprolol tartrate 25 mg Tablet 12.5 mg PO BID Referrals: Kvng Neville MD [Physician] - See Instructions ( Your appointment has been scheduled for [09/29/18] at [3:15 pm] If you cannot make this appointment, please call the office to reschedule ) Miracle Castaneda [ADVANCE RN PRACTITIONER] - See Instructions ( Your appointment has been scheduled for [10/06/18] at [10:30 am] If you cannot make this appointment, please call the office to reschedule ) Pamela Landeros MD [Primary Care Provider] - See Instructions ( Your appointment has been scheduled for [09/22/18] at [10:45 am] If you cannot make this appointment, please call the office to reschedule ) - Discharge Instructions Patient Printed Instructions: CABG (Coronary Artery Bypass Graft) (DC) Additional Instructions: PREVENA Single Use Negative Wound Therapy System Caregiver Instruction Sheet 1. A Prevena dressing system was applied to the chest incision during surgery , to promote wound healing. It works via a suction device (negative pressure wound therapy) to remove low to moderate levels of exudate (drainage) and infectious materials. We recommend that the device stay in place for up to seven days, from day of surgery. 2. Day of Surgery___09/06/18 Day of Removal ___09/13/18 3. The dressing should only be removed by a health post acute care nurse. Please arrange removal of device to coincide with Home Health visit and or with Nursing staff at Rehab 4. If skin reddening or irritation of skin occurs, or excessive drainage, please notify the Cardiovascular Surgeons office at [phone]. 5. Light showering is permissible; however the pump should be disconnected and placed in safe location, where it will not get wet. The dressing should not be exposed to direct spray or submerged in water. No bath tub / shower only. Ensure the end of the tubing attached to the dressing is facing down so that water does not enter the top of the tube. 6. To remove Prevena dressing: press purple button to turn off device / remove the suction. Then disconnect the tubing from the pump. The fixation strips should be stretched away from the skin and the dressing lifted at one corner and peeled back until it has been fully removed. 7. After removal, it is ok to shower daily using liquid dial soap and clean wash cloth, rinse and pat dry, and leave incision open to air dry. For any concerns regarding Prevena dressing, and or wounds, please contact Christina Abbott, patient navigator at [phone] or notify the Cardiovascular Surgeons office at [phone]. Incentive spirometry Q1 hr x 10, while awake, also use acapella device hourly whole awake Sternal Breast Bone Precautions: NO pushing or pulling, ( pt must use sternal pillow to support chest with all activities and with coughing ( takes up to 3 months breast bone to heal ) Daily incision care: ok to shower daily, no tub bath. Wash all incisions with liquid dial soap, clean wash cloth to each site, rinse and pat dry. Observe for any signs of infection, such as drainage which is dark yellow, burgos, green or foul smelling. Immediately report to the surgeon any drainage from the chest incision, or legs, and for any abnormal drainage from the chest tube sites. Notify surgeon if any temp >101.5 degrees F. When specialty dressing removed/ or if you do not have one, continue to shower daily as above, then rinse and pat incision dry and paint with betadine daily x 5 days. Allow steri strips to fall off if you have any. Avoid lotions, creams, salves, oils, etc. for the first month Please see attached forms for additional instructions regarding post Open Heart specialty wound vacuum dressings. ALYSHA or Prevena , Dressing to be removed by Nursing staff on __09/16/18 F/U appointment: as per DC instructions: PCP in 2 weeks, CV surgeon 2 weeks, Manager Furniture 3-4 weeks For any questions regarding incisions/ dressing / meds / post op care or above Symptoms, Wednesday 8am-5pm Heart & Vascular Surgery Office ( Dr. Alberts & Dr. Oliva), After Hours / Nights (5pm -8am) Weekends and Holidays Please call [facility] Cardiac Inter[facility] Care Unit ([facility]) Charge Nurse
[2018-09-10 16:01] VITALS: BP 101/55; PULSE 84; TEMP 98.3; O2SAT 97
== END 2018-09-10 15:56 | disposition home health service (06) ==
LOC: HSDI 05:35 → HCVI 11:59 → HCPC 09-07 10:04
PROVIDERS: ADMIT Thoracic Surgery (Cardiothoracic Vascular Surgery); ATTEND Thoracic Surgery (Cardiothoracic Vascular Surgery)